=== PATIENT | female | born 1950 | race Caucasian/White ===

== ENCOUNTER 2020-07-06 15:05 | Emergency (ER) | payer MEDICARE, SELFPAY ==
--- NOTE | 2020-07-06 15:13 | ED.CHESTPAIN ---
HPI - Chest Pain General Chief Complaint: Chest Pain Stated Complaint: L SIDED CP TO L ARM Time Seen by Provider: 07/06/20 15:09 Source: patient and EMS Mode of arrival: EMS Limitations: no limitations History of Present Illness MD complaint: chest pain Pertinent past history: coronary artery disease and prior [place] Onset (ago): hour(s) (started at 2pm today) Timing of current episode: constant Prior episodes: No Onset: during rest Pain location: left chest Pain radiation: left arm Severity: moderate Quality: heaviness Relieving factors: nitroglycerin (3 doses) Exacerbating factors: nothing Associated symptoms: nausea, diaphoresis and dyspnea Treatment prior to arrival: aspirin and nitroglycerin Related Data Allergies Allergy/AdvReac Type Severity Reaction Status Date / Time fluticasone Allergy Unknown UNKNOWN Unverified 06/04/20 14:38 [From ADVAIR DISKUS] salmeterol Allergy Unknown UNKNOWN Unverified 06/04/20 14:38 [From ADVAIR DISKUS] sulfacetamide Allergy Unknown Verified 01/17/20 00:00 Sulfa (Sulfonamide AdvReac Unknown VOMITING Unverified 06/04/20 14:38 Antibiotics) [SULFA(SULFONAMIDE ANTIBIOTICS)] Review of Systems Review of Systems: Constitutional : No Weight loss, No Fever, No Chills ENT/Mouth : No sore throat, No Rhinorrhea Eyes: No Eye Pain, No Swelling Cardiovascular : pos Chest Pain, pos SOB, no Dyspnea on Exertion, No Orthopnea, No Edema, No Palpitations Respiratory : No Cough, No Sputum Gastrointestinal : pos Nausea, No Vomiting, No Diarrhea, No abdominal Pain, No Hematochezia, No Melena Genitourinary : No Dysuria, No Urinary Frequency Musculoskeletal : No joint pain, No Myalgias, No Joint Swelling Skin : No Skin Lesions, No rash Neuro : No Weakness, No Numbness, No Dizziness, No Headache Psych : No Anxiety/Panic, No Depression All other systems reviewed and are negative [facility] Past Medical History Medical History (Updated 07/06/20 @ 15:35 by Geraldine Stein DO) Afib Anxiety Aortic stenosis Asthma Depression Myocardial infarction Pacemaker Surgical History (Updated 07/06/20 @ 15:21 by Geraldine Stein DO) History of hip replacement Social History Social History (Updated 07/06/20 @ 15:21 by Geraldine Stein DO) Alcohol intake: never Smoking Status: Current every day smoker Use of substances other than those prescribed or required for medical reasons: No Advance Directives: No Advance Directives Information Provided: Yes Physical Exam Vital Signs: Vital Signs: Vital Signs Temp Pulse Resp BP Pulse Ox 07/06/20 15:15 98.4 F 76 20 102/69 96 Body Mass Index 36.1 Appearance: Alert. Oriented X3. No acute distress. Eyes: Pupils equal, round and reactive to light. ENT: Pharynx normal. Neck: Normal inspection. Neck supple. CVS: Normal heart rate and rhythm. Pulses normal. Respiratory: No respiratory distress. Breath sounds normal. Abdomen: Soft and nontender. Skin: Skin warm and dry. Normal skin color. Normal skin turgor. Extremities: No lower extremity edema. No calf ttp Neuro: Oriented X 3. No motor deficit. No sensory deficit. Course Course Course Narrative: signed out pending troponin - Dr. Katz MDM - Chest Pain MDM Narrative Medical decision making narrative: 69 yo female on chronic anticoagulation here with CP already given 3 nitro and 324mg ASA, still mild pain - IV morphine ordered, labs, CXR, EKG, delta troponin x 2, dispo per results and findings, no missed doses of AC therapy doubt PE at this time ECG Data ECG #1: Attestation: I personally reviewed and interpreted this ECG as follows: ECG interpretation date: 07/06/20 ECG interpretation time: 15:33 Interpretation: Rate: 70 Rhythm: ventricular paced continuous [place]: left wide QRS complex. ST T wave : no SANTIAGO, nonspecific qTC:prolonged prior studies: no acute ischemia The study has been interpreted contemporaneously by me. . Discharge Plan Discharge Clinical Impression: Chest pain Qualifiers: Chest pain type: unspecified Qualified Code(s): R07.9 - Chest pain, unspecified
[2020-07-06 15:15] VITALS: BP 102/69; BP 133/75; PULSE 118; PULSE 76; RESP 20; TEMP 36.9; O2SAT 96; BMI 36.1
--- NOTE | 2020-07-06 15:16 | ECG_ITS ---
Test Reason : CHEST PAIN Blood Pressure : / mmHG Vent. Rate : 080 BPM Atrial Rate : 079 BPM P-R Int : 000 ms QRS Dur : 162 ms QT Int : 428 ms P-R-T Axes : 000 144 -78 degrees QTc Int : 493 ms Poor data quality, interpretation may be adversely affected Ventricular-paced rhythm Abnormal ECG When compared with ECG of 28-MAR-2019 15:45, Electronic ventricular pacemaker has replaced Sinus rhythm Referred By: Celeste Katz Electronically Signed By:SLOANE PRITCHARD MD
--- NOTE | 2020-07-06 15:18 | XR_ITS ---
EXAMINATION: XR CHEST CLINICAL INFORMATION: Pain COMPARISON: Chest x-ray March 28, 2019 TECHNIQUE: Frontal view of the chest was obtained. FINDINGS: Cardiac silhouette is not enlarged. Stable orientation of dual lead pacemaker. There is congestion of a large hiatal hernia. The lungs are well aerated. No gross lobar consolidation. No pleural effusion or pneumothorax. Surgical changes of both shoulders. Old healed left posterior rib fracture. IMPRESSION: 1. No acute pulmonary pathology. 2. Suspected large hiatal hernia. Further evaluation can be obtained with cross-sectional imaging.
[2020-07-06 15:49] LABS: MANUAL DIFF FLAG NO
[2020-07-06 15:50] LABS: Basophils Absolute Auto 0.1 X10*3/uL (0.0-0.2); Basophils Percent Auto 0.5 % (0-2); Eosinophils Absolute Auto 0.1 X10*3/uL (0.0-0.4); Eosinophils Percent Auto 0.7 % (0-4); Hematocrit 40.3 % (37-47); Hemoglobin 13.3 g/dl (12.0-16.0); Imm Gran Abs Auto 0.05 X10*3/uL (0.00-0.03); Imm Gran Pct Auto 0.4 % (0.0-0.4); Lymphocytes Absolute Auto 1.9 X10*3/uL (1.2-4.9); Lymphocytes Percent Auto 14.9 % (20-40); Mean Corpuscular Hemoglobin 28.5 pg (27.0-33.0); Mean Corpuscular Volume 86.5 fL (80-98); Monocytes Absolute Auto 0.9 X10*3/uL (0.1-1.2); Monocytes Percent Auto 6.6 % (2-11); Neutrophils Percent Auto 76.9 % (45-73); Platelet Count 288 X10*3/uL (160-400); Red Blood Count 4.66 X10*6/uL (4.20-5.50); Red Cell Distribution Width 12.3 % (11.0-16.0); White Blood Count 12.9 X10*3/uL (4.8-10.8)
[2020-07-06 15:58] LABS: INTERNATIONAL NORM RATIO 1.4 (0.9-1.1); Prothrombin Time 16.4 SEC (10.8-13.0)
[2020-07-06 16:01] LABS: Partial Thromboplastin Time 48.4 SEC (24.1-38.0)
[2020-07-06 16:16] LABS: B Type Natriuretic Peptide 69 pg/mL (<100); Troponin-I High Sensitivity < 3.5 ng/L (<3.5-17.0)
[2020-07-06 16:28] LABS: Alanine Aminotransferase 14 U/L (0-31); Albumin Level 3.5 g/dL (3.5-5.0); Alkaline Phosphatase 113 U/L (39-117); Anion Gap 12 (12-20); Aspartate Amino Transferase 14 U/L (5-31); Bilirubin Direct 0.2 mg/dL (0.0-0.5); Bilirubin Total 0.3 mg/dL (0.0-1.0); Blood Urea Nitrogen 20 mg/dL (9-16); Calcium 8.3 mg/dL (8.4-10.2); Carbon Dioxide 25 mmol/L (22-29); Chloride 107 mmol/L (96-108); Estimated Glomerular Filt Rate > 60; Glucose Random 114 mg/dL (60-115); Lipase 8 U/L (8-78); Magnesium 1.8 mg/dL (1.6-2.6); Potassium 3.7 mmol/l (3.3-5.1); Sodium 140 mmol/L (135-145); Total Protein 6.6 g/dL (6.5-8.0)
[2020-07-06] MEDS: ondansetron HCL 4 MG/2 ML VIAL IVPUSH (16:29)
[2020-07-06] MEDS: Morphine Sulfate 4 MG/ML CARTRIDGE IVPUSH (16:29)
[2020-07-06 16:32] VITALS: BP 111/69; PULSE 70; RESP 18; TEMP 36.9; O2SAT 97
--- NOTE | 2020-07-06 16:34 | PC.NURSE ---
pt resting in the stretcher alert and oriented, skin pwd, respirations even and unlabored. pt reports left sided chest pain that radiates to her left arm, feels like pressure on the chest, pain at 8/10. ns on the monitor, vs stable
--- NOTE | 2020-07-06 16:53 | PC.NURSE ---
NENO [phone] CALL FOR RIDE WHEN READY FOR DISCHARGE
--- NOTE | 2020-07-06 17:33 | PC.NURSE ---
PT RESTING IN THE STRETCHER WATCHING TV, NS ON THE MONITOR, RESPIRATIONS EVEN AND UNLABORED, PT REPORTS THAT CHEST PRESSURE HAS IMPROVED AFTER THE MORPHINE PAIN AT 5/10.
[2020-07-06 18:13] VITALS: BP 99/60; PULSE 70; RESP 18; O2SAT 98
--- NOTE | 2020-07-06 18:19 | PC.NURSE ---
Addendum entered by Melony Moise 07/06/20 18:25: PT DID REPORT FEELING A LITTLE DIZZY WITH AMBULATION BACK TO BED Original Note: PT AMBULATED WITH SLOW BUT STEADY GAIT TO THE BATHROOM, PT AWAITING REPEAT TROP AT 1830
[2020-07-06 18:25] VITALS: BP 109/67
--- NOTE | 2020-07-06 18:58 | PC.NURSE ---
pt report taken from gilson mccurdy. pt repeat troponin being done at this time. pt states chest pain is coming in waves. pt nsr on monitor 70 bpm. primary troponin was wnl.
--- NOTE | 2020-07-06 19:12 | PC.NURSE ---
pt complaining of worse chest pain, md aware. pts daughter called this rn swearing at me stating i need to get my fucking shit together . although this rn got on shift approx 13 minutes ago. charge nurse aware
--- NOTE | 2020-07-06 19:30 | ECG_ITS ---
Test Reason : CHEST PAIN Blood Pressure : / mmHG Vent. Rate : 072 BPM Atrial Rate : 110 BPM P-R Int : 000 ms QRS Dur : 138 ms QT Int : 444 ms P-R-T Axes : 000 -69 -81 degrees QTc Int : 486 ms Poor data quality, interpretation may be adversely affected Ventricular-paced rhythm underlying aflutter T-wave inversion in Inferior leads Abnormal ECG When compared with ECG of 06-JUL-2020 15:16, Vent. rate has decreased BY 8 BPM T wave inversion now evident in Inferior leads aflutter waves in V1 are new Referred By: Celeste Katz Electronically Signed By:SLOANE PRITCHARD MD
[2020-07-06 19:43] LABS: Troponin-I High Sensitivity < 3.5 ng/L (<3.5-17.0)
--- NOTE | 2020-07-06 19:57 | PC.NURSE ---
repeat troponin negative. plan for d.c iv out, vitals wnl
--- NOTE | 2020-07-06 20:29 | ED_ITS ---
HPI - Chest Pain General Chief Complaint: Chest Pain Stated Complaint: L SIDED CP TO L ARM Time Seen by Provider: 07/06/20 15:09 Source: patient and EMS Mode of arrival: EMS Limitations: no limitations History of Present Illness Pain location: left chest Quality: heaviness Relieving factors: nitroglycerin (3 doses) Exacerbating factors: nothing Associated symptoms: nausea, diaphoresis and dyspnea Related Data Allergies Allergy/AdvReac Type Severity Reaction Status Date / Time fluticasone Allergy Unknown UNKNOWN Unverified 06/04/20 14:38 [From ADVAIR DISKUS] salmeterol Allergy Unknown UNKNOWN Unverified 06/04/20 14:38 [From ADVAIR DISKUS] sulfacetamide Allergy Unknown Verified 01/17/20 00:00 Sulfa (Sulfonamide AdvReac Unknown VOMITING Unverified 06/04/20 14:38 Antibiotics) [SULFA(SULFONAMIDE ANTIBIOTICS)] [facility] Past Medical History Medical History (Updated 07/06/20 @ 15:35 by Geraldine Stein DO) Afib Anxiety Aortic stenosis Asthma Depression Myocardial infarction Pacemaker Surgical History (Updated 07/06/20 @ 15:21 by Geraldine Stein DO) History of hip replacement Social History Social History (Updated 07/06/20 @ 15:21 by Geraldine Stein DO) Alcohol intake: never Smoking Status: Current every day smoker Use of substances other than those prescribed or required for medical reasons: No Advance Directives: No Advance Directives Information Provided: Yes Physical Exam Vital Signs: Vital Signs: Vital Signs Temp Pulse Resp BP Pulse Ox 07/06/20 18:25 109/67 07/06/20 18:13 70 18 99/60 98 07/06/20 16:32 98.5 F 70 18 111/69 97 07/06/20 15:15 98.4 F 76 20 102/69 96 Body Mass Index 36.1 Course Course Course Narrative: patient is currently asymptomatic, no longer having chest pain. MDM - Chest Pain MDM Narrative Medical decision making narrative: I received sign-out from Dr. Stein. Patient's 2nd set of troponin and EKG within normal limits. Patient ready to be discharged home. Patient is asymptomatic. I discussed the labs and EKG with the patient. I discussed with the patient that if he continues having chest pain, she may need a stress test EKG 2.: Heart rate 72, ventricular paste, poor quality EKG Lab Data Result diagrams: 07/06/20 15:44 07/06/20 15:44 Labs: Lab Results 07/06/20 07/06/20 07/06/20 Range/Units 15:44 15:44 15:44 WBC 12.9 H (4.8-10.8) X10*3/uL RBC 4.66 (4.20-5.50) X10*6/uL Hgb 13.3 (12.0-16.0) g/dl Hct 40.3 (37-47) % MCV 86.5 (80-98) fL MCH 28.5 (27.0-33.0) pg MCHC 33.0 (31.0-35.0) g/dl RDW 12.3 (11.0-16.0) % Plt Count 288 (160-400) X10*3/uL MPV 9.0 L (9.4-12.3) fL Immature Gran % (Auto) 0.4 (0.0-0.4) % Neut % (Auto) 76.9 H (45-73) % Lymph % (Auto) 14.9 L (20-40) % [place] % (Auto) 6.6 (2-11) % Eos % (Auto) 0.7 (0-4) % Baso % (Auto) 0.5 (0-2) % Lymph # (Auto) 1.9 (1.2-4.9) X10*3/uL [place] # (Auto) 0.9 (0.1-1.2) X10*3/uL Eos # (Auto) 0.1 (0.0-0.4) X10*3/uL Baso # (Auto) 0.1 (0.0-0.2) X10*3/uL Abs Immat Gran (auto) 0.05 H (0.00-0.03) X10*3/uL Absolute Neuts (auto) 10.0 H (2.0-8.3) X10*3/uL Absolute Nucleated RBC 0.000 (0.0-0.012) X10*3/uL Nucleated RBC % (auto) 0.0 (0.0-0.2) /100WBC PT 16.4 H (10.8-13.0) SEC INR 1.4 H (0.9-1.1) APTT 48.4 H (24.1-38.0) SEC Sodium 140 (135-145) mmol/L Potassium 3.7 (3.3-5.1) mmol/l Chloride 107 (96-108) mmol/L Carbon Dioxide 25 (22-29) mmol/L Anion Gap 12 (12-20) BUN 20 H (9-16) mg/dL Creatinine 0.88 (0.5-1.4) mg/dL Estim Creat Clear Calc 79.0 Estimated GFR > 60 Random Glucose 114 (60-115) mg/dL Calcium 8.3 L (8.4-10.2) mg/dL Magnesium 1.8 (1.6-2.6) mg/dL Total Bilirubin 0.3 (0.0-1.0) mg/dL Direct Bilirubin 0.2 (0.0-0.5) mg/dL AST 14 (5-31) U/L ALT 14 (0-31) U/L Alkaline Phosphatase 113 (39-117) U/L Troponin I High Sens (<3.5-17.0) ng/L B-Natriuretic Peptide (<100) pg/mL Total Protein 6.6 (6.5-8.0) g/dL Albumin 3.5 (3.5-5.0) g/dL Lipase 8 (8-78) U/L 07/06/20 07/06/20 Range/Units 15:44 19:10 WBC (4.8-10.8) X10*3/uL RBC (4.20-5.50) X10*6/uL Hgb (12.0-16.0) g/dl Hct (37-47) % MCV (80-98) fL MCH (27.0-33.0) pg MCHC (31.0-35.0) g/dl RDW (11.0-16.0) % Plt Count (160-400) X10*3/uL MPV (9.4-12.3) fL Immature Gran % (Auto) (0.0-0.4) % Neut % (Auto) (45-73) % Lymph % (Auto) (20-40) % [place] % (Auto) (2-11) % Eos % (Auto) (0-4) % Baso % (Auto) (0-2) % Lymph # (Auto) (1.2-4.9) X10*3/uL [place] # (Auto) (0.1-1.2) X10*3/uL Eos # (Auto) (0.0-0.4) X10*3/uL Baso # (Auto) (0.0-0.2) X10*3/uL Abs Immat Gran (auto) (0.00-0.03) X10*3/uL Absolute Neuts (auto) (2.0-8.3) X10*3/uL Absolute Nucleated RBC (0.0-0.012) X10*3/uL Nucleated RBC % (auto) (0.0-0.2) /100WBC PT (10.8-13.0) SEC INR (0.9-1.1) APTT (24.1-38.0) SEC Sodium (135-145) mmol/L Potassium (3.3-5.1) mmol/l Chloride (96-108) mmol/L Carbon Dioxide (22-29) mmol/L Anion Gap (12-20) BUN (9-16) mg/dL Creatinine (0.5-1.4) mg/dL Estim Creat Clear Calc Estimated GFR Random Glucose (60-115) mg/dL Calcium (8.4-10.2) mg/dL Magnesium (1.6-2.6) mg/dL Total Bilirubin (0.0-1.0) mg/dL Direct Bilirubin (0.0-0.5) mg/dL AST (5-31) U/L ALT (0-31) U/L Alkaline Phosphatase (39-117) U/L Troponin I High Sens < 3.5 < 3.5 (<3.5-17.0) ng/L B-Natriuretic Peptide 69 (<100) pg/mL Total Protein (6.5-8.0) g/dL Albumin (3.5-5.0) g/dL Lipase (8-78) U/L Discharge Plan Discharge Clinical Impression: Chest pain Qualifiers: Chest pain type: unspecified Qualified Code(s): R07.9 - Chest pain, unspecified Patient Disposition: Home, Self-Care Instructions: Chest Pain (ED) Additional Instructions: Please follow-up with your primary care physician tomorrow. If you have any worsening or new symptoms, please return to the emergency room or call 911 Discharge Date/Time: 07/06/20 20:34
== END 2020-07-06 20:34 | disposition home or self-care (01) ==
PROVIDERS: Emergency Medicine; Physician Assistant; Emergency Provider Emergency Medicine; PCP Internal Medicine
DX: R07.9 Chest pain, unspecified (principal); M79.602 Pain in left arm; F17.200 Nicotine dependence, unspecified, uncomplicated; Z71.6 Tobacco abuse counseling
CPT/HCPCS: 36415; 71045; 80048; 80076; 83690; 83735; 83880; 84484; 85025; 85610; 85730; 93005; 96374; 96375; 99285; J2270; J2405

== ENCOUNTER → 2020-07-21 10:10 | Outpatient (BNVA) | payer MEDICARE, SELFPAY | PROVIDERS: PCP Internal Medicine; Referring Provider Internal Medicine; Visit Provider Student in an Organized Health Care Education/Training Program | DX: M81.0 Age-related osteoporosis without current pathological fracture (principal); F17.200 Nicotine dependence, unspecified, uncomplicated; Z79.899 Other long term (current) drug therapy | CPT/HCPCS: 99212 ==

== ENCOUNTER 2020-08-28 05:50 | Inpatient (IN) | payer MEDICARE, SELFPAY ==
[2020-08-28] VITALS (8 sets, daily range): BP systolic 94–126; BP diastolic 45–70; PULSE 63–86; RESP 16–71; TEMP 36.1–38.8; O2SAT 88–100; BMI 29.3
--- NOTE | 2020-08-28 | CT_ITS ---
EXAMINATION: CT ANGIOGRAM OF THE CHEST WITH AND WITHOUT CONTRAST (CT PULMONARY ANGIOGRAM FOR PE) CLINICAL INFORMATION: leukocytosis COMPARISON: 05/28/2018 TECHNIQUE: Prior to contrast administration, noncontrast localization images were obtained. Subsequently, multidetector volumetric imaging was performed from the thoracic inlet to below the diaphragms following the administration of 65 mL Omnipaque 350 intravenous contrast. No contrast reaction reported Sagittal, coronal, and MIP oblique sagittal reformatted images were obtained on the CT workstation, uploaded to PACS, and reviewed. This CT examination was performed using dose optimization techniques as appropriate, variously including the following: *Automated exposure control *Adjustment of mA and/or kV according to patient size (this includes techniques or standardized protocols for targeted exams where dose is matched to indication/reason for exam; i.e. extremities or head) *Use of iterative reconstruction technique Total exam dose-length product 391 mGy-cm FINDINGS: QUALITY OF STUDY/CONTRAST BOLUS: Assessment of the lobar and segmental pulmonary arteries is limited by motion artifact, more pronounced in the lower lobes. PULMONARY ARTERIES: No central or lobar pulmonary emboli are identified. As noted above, there is limited sensitivity and specificity for assessment of more distal emboli in the distal lobar and segmental pulmonary arteries. Pulmonary arteries are normal in caliber. THORACIC AORTA: Vascular is normal in caliber. Mild calcific atherosclerosis in the aortic arch. No evidence of dissection or aneurysmal dilatation. LUNG: Assessment of the lung parenchyma is slightly limited by respiratory motion. There is a 4 mm pulmonary nodule at the right lung apex on image 89/467 of series 7 which is unchanged as compared to 05/28/2018. Interstitial opacities suspected on the radiographs are less apparent by CT. No discrete areas of airspace consolidation are identified. No appreciable groundglass consolidation, though small foci may be obscured by the respiratory motion artifact. Mild dependent atelectasis in the lower lobes. PLEURA: No pleural effusion or pneumothorax. MEDIASTINUM: There is a moderate-sized mixed type hiatal hernia. Pacemaker is noted with leads in the right atrium and right ventricle. Heart is normal in size. No pericardial effusion. Thyroid gland is not well seen. No adenopathy. No evidence of septal bowing or right heart strain. CHEST WALL/AXILLA: No axillary or internal mammary lymphadenopathy. OSSEOUS STRUCTURES: Multilevel degenerative disc disease is present in the lumbar spine. No acute fractures. No axillary adenopathy. UPPER ABDOMEN: No acute findings. A small amount of contrast material refluxes into the hepatic veins. CT/CT angio chest PE protocol IMPRESSION: No evidence of central or proximal lobar pulmonary emboli. Assessment of the distal lobar and segmental pulmonary arteries is limited by significant respiratory motion artifact. No acute pulmonary abnormalities are identified. Suspected interstitial opacities on the radiograph are likely artifactual in nature and are not apparent by CT. No airspace consolidation to suggest pneumonia. Moderate-sized hiatal hernia. A small amount of contrast material refluxed into the hepatic veins as can be seen with elevated right heart pressures. VTE: negative
--- NOTE | 2020-08-28 06:35 | PC.NURSE ---
Patient arrives to ED after fall yesterday. Reports all over my right side pain, and difficulty with ADLs and ambulation since yesterday's fall. Awaiting ED MD evaluation. Pt calm/cooperative, respirations even & unlabored. Will continue to monitor.
--- NOTE | 2020-08-28 06:46 | XR_ITS ---
EXAMINATION: XR HIP, RIGHT CLINICAL INFORMATION: Right hip pain status post fall. COMPARISON: 01/10/2019 bilateral hip radiographs. TECHNIQUE: Two views of the right hip. FINDINGS: Deformity seen in the subcapital right femoral neck. The right intertrochanteric region is intact. Mild right hip degenerative joint changes are seen most pronounced medially, similar on the left side. The bony pelvis and left hip appear intact. XR/XR hip RT min 2V IMPRESSION: 1. Acute, mildly displaced right subcapital femoral neck fracture. 2. Mild bilateral hip degenerative joint changes. This pattern can be seen with rheumatoid arthritis however osteoarthritis cannot be excluded.
--- NOTE | 2020-08-28 06:47 | ECG_ITS ---
Test Reason : FALL Blood Pressure : / mmHG Vent. Rate : 070 BPM Atrial Rate : 069 BPM P-R Int : 000 ms QRS Dur : 122 ms QT Int : 482 ms P-R-T Axes : 000 136 -24 degrees QTc Int : 520 ms Poor data quality, interpretation may be adversely affected Ventricular-paced rhythm Abnormal ECG When compared with ECG of 06-JUL-2020 19:44, No significant changes seen Referred By: Geraldine Stein Electronically Signed By:VIRGEN SHOOK
--- NOTE | 2020-08-28 06:58 | ED_ITS ---
HPI - Extremity Injury (Lower) General Chief Complaint: Extremity Injury, Lower Stated Complaint: HIP PAIN DUE TO FALL Time Seen by Provider: 08/28/20 06:46 Source: patient and EMS Mode of arrival: ambulatory Limitations: no limitations History of Present Illness HPI Narrative: patient states she was standing and lost balance denies CP/SOB/dizziness complaint: hip injury Onset (ago): day(s) (yesterday) Injury: Right: hip Type of Injury: other (fall) Place: home Severity: moderate Relieving factors: nothing Exacerbating factors: movement Context: fall (states she got up and lost her balance fell on the floor hurting R hip, did not strike head) Associated symptoms: unable to bear weight and other (on floor x 1 hour per her waiting for fire department) Other symptoms: none Related Data Home Medications Medication Instructions Recorded Confirmed alendronate 70 mg tablet 70 mg PO QWEEK 07/21/20 apixaban 5 mg tablet 5 mg PO BID 07/21/20 atorvastatin 10 mg tablet 10 mg PO DAILY 07/21/20 cholecalciferol (vitamin D3) 10 10 mcg PO DAILY 07/21/20 mcg (400 unit) capsule clonazepam 1 mg tablet 1 mg PO BEDTIME 07/21/20 diltiazem HCl 120 mg tablet 120 mg PO .twice a day tab 07/21/20 ferrous sulfate 325 mg (65 mg 325 mg PO DAILY 07/21/20 iron) tablet lurasidone 20 mg tablet 20 mg PO DAILY 07/21/20 magnesium 200 mg tablet 200 mg PO DAILY 07/21/20 melatonin 5 mg capsule mg PO PRN 07/21/20 metoprolol succinate 50 mg 50 mg PO DAILY 07/21/20 tablet,extended release 24 hr multivitamin 1 tab PO DAILY 07/21/20 Allergies Allergy/AdvReac Type Severity Reaction Status Date / Time Sulfa (Sulfonamide AdvReac Intermediate VOMITING Verified 07/21/20 10:31 Antibiotics) [SULFA(SULFONAMIDE ANTIBIOTICS)] Review of Systems Review of Systems: Constitutional : No Fever, No Chills ENT/Mouth : No Ear Pain, No Hoarseness, No sore throat Eyes: No Eye Pain, No Swelling, No Redness, No Foreign Body Cardiovascular : No Chest Pain, No SOB Respiratory : No Cough, No Dyspnea Gastrointestinal : No Nausea, No Vomiting, No Diarrhea, No abdominal Pain Genitourinary : No Dysuria, No Hematuria Musculoskeletal : positive joint pain, No Myalgias, No Joint Swelling Skin : No Skin lacerations, No rash Neuro : No Weakness, No Numbness, No Loss of Consciousness, No Dizziness, No Headache Psych : No Anxiety/Panic, No Depression Heme/Lymph: no easy bruising, no Lymphadenopathy Endocrine : No Polyuria, No Polydipsia All other systems reviewed and are negative [facility] Past Medical History Attestation statement: The following information was validated with the patient. Medical History Afib Anxiety Aortic stenosis Asthma Depression Myocardial infarction Osteoporosis Pacemaker Surgical History History of hip replacement Social History Social History Alcohol intake: never Smoking Status: Current every day smoker Advance Directives: No Physical Exam Vital Signs: Vital Signs: Last Vital Signs Temp 98.6 F 08/28/20 06:01 Pulse 74 08/28/20 07:48 Resp 16 08/28/20 06:01 BP 99/58 L 08/28/20 07:48 Pulse Ox 96 08/28/20 06:01 Body Mass Index 29.3 Appearance: Alert. Oriented X3. No acute distress. Flat affect Eyes: Pupils equal, round and reactive to light. ENT: Pharynx normal. Atraumatic Neck: Normal inspection. Neck supple. CVS: Normal heart rate and rhythm. Pulses normal. Respiratory: No respiratory distress. Breath sounds normal. Abdomen: Soft and nontender. Skin: Skin warm and dry. Normal skin color. Normal skin turgor. Extremities: No lower extremity edema. No calf ttp R hip tto distal NV intact Neuro: Oriented X 3. No motor deficit. No sensory deficit. Course Course Course Narrative: Dr. Vick notified - given medical complexities admit to medicine at this time daughter Soheila roblero MDM - Extremity Injury (Lower) MDM Narrative Medical decision making narrative: 69 yo female from home with fall after losing her balance - on eliquis for afib at this time will need labs, CT head given AC therapy, xray or R hip, EKG, IV morphine for pain dispo per results and findings. Lab Data Result diagrams: 08/28/20 07:37 08/28/20 07:36 Labs: Lab Results 08/28/20 08/28/20 08/28/20 Range/Units 07:36 07:36 07:37 WBC 15.1 H (4.8-10.8) X10*3/uL RBC 4.86 (4.20-5.50) X10*6/uL Hgb 14.1 (12.0-16.0) g/dl Hct 42.4 (37-47) % MCV 87.2 (80-98) fL MCH 29.0 (27.0-33.0) pg MCHC 33.3 (31.0-35.0) g/dl RDW 12.7 (11.0-16.0) % Plt Count 243 (160-400) X10*3/uL MPV 8.9 L (9.4-12.3) fL Immature Gran % (Auto) 0.5 H (0.0-0.4) % Neut % (Auto) 82.8 H (45-73) % Lymph % (Auto) 10.2 L (20-40) % [place] % (Auto) 3.9 (2-11) % Eos % (Auto) 2.3 (0-4) % Baso % (Auto) 0.3 (0-2) % Lymph # (Auto) 1.5 (1.2-4.9) X10*3/uL [place] # (Auto) 0.6 (0.1-1.2) X10*3/uL Eos # (Auto) 0.3 (0.0-0.4) X10*3/uL Baso # (Auto) 0.1 (0.0-0.2) X10*3/uL Abs Immat Gran (auto) 0.07 H (0.00-0.03) X10*3/uL Absolute Neuts (auto) 12.5 H (2.0-8.3) X10*3/uL Absolute Nucleated RBC 0.000 (0.0-0.012) X10*3/uL Nucleated RBC % (auto) 0.0 (0.0-0.2) /100WBC PT (10.8-13.0) SEC INR (0.9-1.1) APTT (24.1-38.0) SEC Sodium 136 (135-145) mmol/L Potassium 4.0 (3.3-5.1) mmol/l Chloride 99 (96-108) mmol/L Carbon Dioxide 27 (22-29) mmol/L Anion Gap 14 (12-20) BUN 20 H (9-16) mg/dL Creatinine 0.85 (0.5-1.4) mg/dL Estim Creat Clear Calc 73.7 Estimated GFR > 60 Random Glucose 125 H (60-115) mg/dL Calcium 9.1 D (8.4-10.2) mg/dL Magnesium 2.1 (1.6-2.6) mg/dL Total Creatine Kinase 550 H (26-140) U/L Troponin I High Sens (<3.5-17.0) ng/L 08/28/20 08/28/20 Range/Units 07:37 07:37 WBC (4.8-10.8) X10*3/uL RBC (4.20-5.50) X10*6/uL Hgb (12.0-16.0) g/dl Hct (37-47) % MCV (80-98) fL MCH (27.0-33.0) pg MCHC (31.0-35.0) g/dl RDW (11.0-16.0) % Plt Count (160-400) X10*3/uL MPV (9.4-12.3) fL Immature Gran % (Auto) (0.0-0.4) % Neut % (Auto) (45-73) % Lymph % (Auto) (20-40) % [place] % (Auto) (2-11) % Eos % (Auto) (0-4) % Baso % (Auto) (0-2) % Lymph # (Auto) (1.2-4.9) X10*3/uL [place] # (Auto) (0.1-1.2) X10*3/uL Eos # (Auto) (0.0-0.4) X10*3/uL Baso # (Auto) (0.0-0.2) X10*3/uL Abs Immat Gran (auto) (0.00-0.03) X10*3/uL Absolute Neuts (auto) (2.0-8.3) X10*3/uL Absolute Nucleated RBC (0.0-0.012) X10*3/uL Nucleated RBC % (auto) (0.0-0.2) /100WBC PT 16.2 H (10.8-13.0) SEC INR 1.4 H (0.9-1.1) APTT 41.4 H (24.1-38.0) SEC Sodium (135-145) mmol/L Potassium (3.3-5.1) mmol/l Chloride (96-108) mmol/L Carbon Dioxide (22-29) mmol/L Anion Gap (12-20) BUN (9-16) mg/dL Creatinine (0.5-1.4) mg/dL Estim Creat Clear Calc Estimated GFR Random Glucose (60-115) mg/dL Calcium (8.4-10.2) mg/dL Magnesium (1.6-2.6) mg/dL Total Creatine Kinase (26-140) U/L Troponin I High Sens 5.4 D (<3.5-17.0) ng/L ECG Data Attestation: I personally reviewed and interpreted this ECG as follows: ECG interpretation date: 08/28/20 ECG interpretation time: 07:44 Interpretation: Rate: 70 Rhythm: continuous ventricular paced [place]: normal Normal P waves. Normal DEMARCUS. wide QRS complex. ST T wave : nonspecific, no SANTIAGO qTC: prolonged prior studies: no acute ischemia The study has been interpreted contemporaneously by me. . Discharge Plan Discharge Clinical Impression: Fracture of hip Qualifiers: Encounter type: initial encounter Fracture type: closed Laterality: right Qualified Code(s): S72.001A - Fracture of unspecified part of neck of right femur, initial encounter for closed fracture Patient Disposition: Admitted As Inpatient
--- NOTE | 2020-08-28 06:58 | CT_ITS ---
EXAMINATION: CT HEAD WITHOUT CONTRAST CLINICAL INFORMATION: Status post fall, on Eliquis, rule out intracranial abnormality. COMPARISON: Head CT scan dated 03/28/2019. TECHNIQUE: Contiguous axial imaging was performed from the skull base to vertex without intravenous administration of contrast. Coronal and sagittal reformatted images were obtained. This CT examination was performed using dose optimization techniques as appropriate, variously including the following: *Automated exposure control *Adjustment of mA and/or kV according to patient size (this includes techniques or standardized protocols for targeted exams where dose is matched to indication/reason for exam; i.e. extremities or head) *Use of iterative reconstruction technique DLP: 717 mGy-cm FINDINGS: There is mild widening of the cortical sulci and associated ventriculomegaly. The lateral ventricles are symmetrical. The third and fourth ventricles are in their normal midline position. The basilar and prepontine cisterns are unremarkable. Coarse calcifications are again seen in the anterior falx without significant change. There is no acute intra or extracerebral abnormality. There is no mass effect or midline shift. Sections through the bony calvarium are unremarkable. The orbits are intact. Mild mid nasal septal deviation, apex the left with small apical spur without significant change. The paranasal sinuses are clear. The mastoid air cells are clear. Hypoaeration of the right mastoid air cells is again seen without abnormality. CT/CT head/brain wo con IMPRESSION: Mild age-related cortical atrophy without significant change. No acute intracranial abnormality.
[2020-08-28] MEDS: Morphine Sulfate 2 MG/ML CARTRIDGE IVPUSH (07:41)
[2020-08-28 07:46] LABS: MANUAL DIFF FLAG NO
[2020-08-28 07:47] LABS: Basophils Absolute Auto 0.1 X10*3/uL (0.0-0.2); Basophils Percent Auto 0.3 % (0-2); Eosinophils Absolute Auto 0.3 X10*3/uL (0.0-0.4); Eosinophils Percent Auto 2.3 % (0-4); Hematocrit 42.4 % (37-47); Hemoglobin 14.1 g/dl (12.0-16.0); Imm Gran Abs Auto 0.07 X10*3/uL (0.00-0.03); Imm Gran Pct Auto 0.5 % (0.0-0.4); Lymphocytes Absolute Auto 1.5 X10*3/uL (1.2-4.9); Lymphocytes Percent Auto 10.2 % (20-40); Mean Corpuscular HGB Conc 33.3 g/dl (31.0-35.0); Mean Corpuscular Volume 87.2 fL (80-98); Mean Platelet Volume 8.9 fL (9.4-12.3); Monocytes Absolute Auto 0.6 X10*3/uL (0.1-1.2); Monocytes Percent Auto 3.9 % (2-11); Neutrophils Absolute Auto 12.5 X10*3/uL (2.0-8.3); Neutrophils Percent Auto 82.8 % (45-73); Platelet Count 243 X10*3/uL (160-400); Red Blood Count 4.86 X10*6/uL (4.20-5.50); Red Cell Distribution Width 12.7 % (11.0-16.0); White Blood Count 15.1 X10*3/uL (4.8-10.8)
[2020-08-28 07:51] LABS: INTERNATIONAL NORM RATIO 1.4 (0.9-1.1); Prothrombin Time 16.2 SEC (10.8-13.0)
[2020-08-28 07:53] LABS: Partial Thromboplastin Time 41.4 SEC (24.1-38.0)
[2020-08-28 08:12] LABS: Anion Gap 14 (12-20); Blood Urea Nitrogen 20 mg/dL (9-16); Calcium 9.1 mg/dL (8.4-10.2); Carbon Dioxide 27 mmol/L (22-29); Chloride 99 mmol/L (96-108); Creatinine Clr Calc Pharmacy 73.7; Estimated Glomerular Filt Rate > 60; Glucose Random 125 mg/dL (60-115); Magnesium 2.1 mg/dL (1.6-2.6); Sodium 136 mmol/L (135-145)
[2020-08-28 08:15] LABS: Troponin-I High Sensitivity 5.4 ng/L (<3.5-17.0)
--- NOTE | 2020-08-28 08:38 | XR_ITS ---
EXAMINATION: XR ELBOW, RIGHT CLINICAL INFORMATION: Fall COMPARISON: None TECHNIQUE: AP, lateral, and oblique views of the right elbow. FINDINGS: Bone alignment is normal. No fracture or dislocation is seen. The joint spaces are normal. There is no joint effusion. There is a small osteophyte at the triceps tendon insertion to the olecranon. There is soft tissue swelling over the posterior medial lower elbow. XR/XR elbow RT 2V IMPRESSION: Soft tissue swelling over the posterior medial lower elbow. No fracture seen.
[2020-08-28] MEDS: oxyCODONE HCl Immed Release 5 MG TABLET 10 MG PO (08:45)
--- NOTE | 2020-08-28 10:44 | P.HPHOSP_ITS ---
History of Present Illness Date of Service: 08/28/20 Chief Complaint: fall This is a 69-year-old female with history of atrial fibrillation on Eliquis, asthma, coronary artery disease who presents to the emergency department after a fall. She reports falling 2 days ago. She attempted to sit down on the couch but missed and fell onto the floor. She denies any chest pain, palpitations, dizziness prior to her fall. She was unable to get up off the floor and had to call the fire department for assistance. She did not want to come to the hospital for evaluation at that time. She has been having pain in her right hip difficulty ambulating since her fall. Given her persistent pain she made a decision to come to the emergency department today. Workup revealed a right subcapital femoral neck fracture. The orthopedic surgeon was consulted and he recommended the patient be admitted to the medical service. Patient reports ongoing pain in his right hip has no other complaints. Review of Systems Review of Systems: Yes all other systems are reviewed and are negative Constitutional: Constitutional: Denies chills and Denies fever(s) Cardiovascular: Cardiovascular: Denies chest pain Respiratory: Respiratory: Denies cough Gastrointestinal: Gastrointestinal: Denies abdominal pain [facility] Medical History (Updated 08/28/20 @ 12:40 by REED Samson) Afib Anxiety Aortic stenosis Asthma Depression GERD (gastroesophageal reflux disease) Myocardial infarction Osteoporosis Pacemaker Functional capacity: independent ambulation Pertinent family history: no history of cad Family history: reviewed and not pertinent Surgical History (Updated 08/28/20 @ 10:51 by REED Samson) H/O: hysterectomy Status post right knee replacement Social History (Updated 08/28/20 @ 10:52 by REED Samson) Household Members: Children and Friend(s) Alcohol intake: never Smoking Status: Current every day smoker Cigarettes Per Day: 5 Use of substances other than those prescribed or required for medical reasons: No Advance Directives: No Meds Allergies Allergy/AdvReac Type Severity Reaction Status Date / Time Sulfa (Sulfonamide AdvReac Intermediate VOMITING Verified 07/21/20 10:31 Antibiotics) [SULFA(SULFONAMIDE ANTIBIOTICS)] Home Medications Medication Instructions Recorded Confirmed Type alendronate 70 mg tablet 70 mg PO QWEEK 07/21/20 08/28/20 History apixaban 5 mg tablet 5 mg PO BID 07/21/20 08/28/20 History atorvastatin 10 mg tablet 10 mg PO DAILY 07/21/20 08/28/20 History cholecalciferol (vitamin D3) 10 10 mcg PO DAILY 07/21/20 08/28/20 History mcg (400 unit) capsule ferrous sulfate 325 mg (65 mg 325 mg PO DAILY 07/21/20 08/28/20 History iron) tablet melatonin 5 mg capsule 5 mg PO BEDTIME PRN 07/21/20 08/28/20 History metoprolol succinate 50 mg 100 mg PO DAILY 07/21/20 08/28/20 History tablet,extended release 24 hr multivitamin 1 tab PO DAILY 07/21/20 08/28/20 History calcium carbonate-vitamin D3 1 tab PO BID 08/28/20 08/28/20 History [Oystercal-D] clonazepam 1 mg PO BID PRN 08/28/20 08/28/20 History furosemide 40 mg PO DAILY 08/28/20 08/28/20 History paroxetine HCl 20 mg PO DAILY 08/28/20 08/28/20 History zinc 50 mg PO DAILY 08/28/20 08/28/20 History zolpidem 5 mg PO BEDTIME PRN 08/28/20 08/28/20 History Physical Exam Vital Signs and Narrative: Vital Signs: Last Vital Signs Temp 98.6 F 08/28/20 06:01 Pulse 74 08/28/20 07:48 Resp 16 08/28/20 06:01 BP 99/58 L 08/28/20 07:48 Pulse Ox 96 08/28/20 06:01 Body Mass Index 29.3 Const: Nutritional Appearance: well nourished Orientation/consciousness: patient oriented x3 HENMT: Head: Yes normocephalic and Yes atraumatic Eyes: Sclerae: sclerae normal Chest: Chest palpation & inspection: normal inspection of the chest Resp: Effort & Inspection: normal respiratory effort and no respiratory distress Auscultation: clear to auscultation bilaterally Cardio: Rate: regular rate Rhythm: regular rhythm Heart sounds: Murmur heart sound present GI: Palpation (GI): Soft to palpation and nontender Skin: General skin exam: no rashes or lesions noted Neuro: General: patient oriented x3 Cranial nerves: Yes CN's II-XII intact bilaterally and Yes Bilaterally intact EOM present Extrem: General: Yes normal to inspection Results Labs CBC and Chem 7: 08/28/20 07:37 08/28/20 07:36 Labs: Laboratory Results - last 24 hr 08/28/20 08/28/20 08/28/20 07:36 07:36 07:37 MCV 87.2 MCH 29.0 MCHC 33.3 RDW 12.7 Plt Count 243 MPV 8.9 L Immature Gran % (Auto) 0.5 H Neut % (Auto) 82.8 H Lymph % (Auto) 10.2 L [place] % (Auto) 3.9 Eos % (Auto) 2.3 Baso % (Auto) 0.3 Lymph # (Auto) 1.5 [place] # (Auto) 0.6 Eos # (Auto) 0.3 Baso # (Auto) 0.1 Abs Immat Gran (auto) 0.07 H Absolute Neuts (auto) 12.5 H Absolute Nucleated RBC 0.000 Nucleated RBC % (auto) 0.0 PT INR APTT Anion Gap 14 Estim Creat Clear Calc 73.7 Estimated GFR > 60 Random Glucose 125 H Calcium 9.1 D Magnesium 2.1 Total Creatine Kinase 550 H Troponin I High Sens 08/28/20 08/28/20 07:37 07:37 MCV MCH MCHC RDW Plt Count MPV Immature Gran % (Auto) Neut % (Auto) Lymph % (Auto) [place] % (Auto) Eos % (Auto) Baso % (Auto) Lymph # (Auto) [place] # (Auto) Eos # (Auto) Baso # (Auto) Abs Immat Gran (auto) Absolute Neuts (auto) Absolute Nucleated RBC Nucleated RBC % (auto) PT 16.2 H INR 1.4 H APTT 41.4 H Anion Gap Estim Creat Clear Calc Estimated GFR Random Glucose Calcium Magnesium Total Creatine Kinase Troponin I High Sens 5.4 D Imaging Radiologist's Impressions: Impressions Hip X-Ray 08/28/20 06:46 IMPRESSION: 1. Acute, mildly displaced right subcapital femoral neck fracture. 2. Mild bilateral hip degenerative joint changes. This pattern can be seen with rheumatoid arthritis however osteoarthritis cannot be excluded. Head CT 08/28/20 06:58 IMPRESSION: Mild age-related cortical atrophy without significant change. No acute intracranial abnormality. Elbow X-Ray 08/28/20 08:38 IMPRESSION: Soft tissue swelling over the posterior medial lower elbow. No fracture seen. Assessment and Plan (1) Fracture of hip: Qualifiers: Encounter type: initial encounter Fracture type: closed Laterality: right Qualified Code(s): S72.001A - Fracture of unspecified part of neck of right femur, initial encounter for closed fracture Status: Acute This is a 69-year-old female with history of atrial fibrillation on Eliquis, asthma, acid reflux, anxiety depression who had mechanical fall and sustained right subcapital femoral neck fracture Right subcapital femoral neck fracture Orthopedic consult Hold Eliquis Pain management Elevated CPK. 550 Related to fall/fracture Trend CPK Atrial fibrillation Continue metoprolol Hold Eliquis for planned procedure Leukocytosis Likely reactive secondary to fracture Will check UA, CXR although no symptoms Mood Continue clonazepam, paroxetine dvt ppx - mechanical devices code status - full This case was discussed with Dr. Yepez
--- NOTE | 2020-08-28 11:26 | XR_ITS ---
EXAMINATION: XR CHEST CLINICAL INFORMATION: Fever. COMPARISON: Chest 07/06/2020 TECHNIQUE: Frontal view of the chest was obtained. FINDINGS: The lungs are well-expanded and clear of acute process. The heart size and pulmonary vascularity is normal. There are pacer electrodes right atrium and right ventricle. No gross bony abnormality seen. XR/XR chest 1V IMPRESSION: Unremarkable chest exam.
[2020-08-28] MEDS: Acetaminophen 325 MG TABLET 650 MG PO ×2 (11:34→20:40)
[2020-08-28] MEDS: 0.9 % Sodium Chloride 500 ML IV (11:35)
--- NOTE | 2020-08-28 11:46 | PC.NURSE ---
Patient states she is cold, asking for blankets, took rectal temp when placing on bed seo, ED MD and Hospitalist aware of fever, patient able to lift up self to put on buttocks
[2020-08-28 11:51] LABS: COVID-19 Test Negative (Negative)
--- NOTE | 2020-08-28 11:56 | PC.NURSE ---
[facility] at bedside
--- NOTE | 2020-08-28 12:46 | P.CONOP_ITS ---
History of Present Illness HPI Consult date: 08/28/20 Consult reason: joint pain and fracture Chief complaint: Right femoral neck fracture Narrative: 69 y.o female with a PMH significant for A. Fib on Eliquis last taken yesterday evening, [place], coronary artery disease, and a pacemaker, who presents to the ED today 08/28/20 for rt hip pain and difficulty ambulating s/p fall 08/27/20. Patient states that she was going to a sitting position on the couch when she miss judged how far away the couch was and fell directly onto the floor. She reports that she has been WB on the affected hip at home. She lives at home with her daughter and her daughters friend. She walks with a cane at baseline. Denies any syncope, CP, SOB, palpitations. Review of Systems Review of Systems: Yes all other systems are reviewed and are negative Musculoskeletal: Musculoskeletal: Reports as per [facility] Past Medical History Medical History Afib Anxiety Aortic stenosis Asthma Depression GERD (gastroesophageal reflux disease) Myocardial infarction Osteoporosis Pacemaker Functional capacity: independent ambulation Family History Family history: reviewed and not pertinent Surgical History Surgical History H/O: hysterectomy Status post right knee replacement Social History Social History Household Members: Children and Friend(s) Alcohol intake: never Smoking Status: Current every day smoker Cigarettes Per Day: 5 Use of substances other than those prescribed or required for medical reasons: No Advance Directives: No Meds Allergies Allergy/AdvReac Type Severity Reaction Status Date / Time Sulfa (Sulfonamide AdvReac Intermediate VOMITING Verified 07/21/20 10:31 Antibiotics) [SULFA(SULFONAMIDE ANTIBIOTICS)] Home Medications Medication Instructions Recorded Confirmed Type alendronate 70 mg tablet 70 mg PO QWEEK 07/21/20 08/28/20 History apixaban 5 mg tablet 5 mg PO BID 07/21/20 08/28/20 History atorvastatin 10 mg tablet 10 mg PO DAILY 07/21/20 08/28/20 History cholecalciferol (vitamin D3) 10 10 mcg PO DAILY 07/21/20 08/28/20 History mcg (400 unit) capsule ferrous sulfate 325 mg (65 mg 325 mg PO DAILY 07/21/20 08/28/20 History iron) tablet melatonin 5 mg capsule 5 mg PO BEDTIME PRN 07/21/20 08/28/20 History metoprolol succinate 50 mg 100 mg PO DAILY 07/21/20 08/28/20 History tablet,extended release 24 hr multivitamin 1 tab PO DAILY 07/21/20 08/28/20 History calcium carbonate-vitamin D3 1 tab PO BID 08/28/20 08/28/20 History [Oystercal-D] clonazepam 1 mg PO BID PRN 08/28/20 08/28/20 History furosemide 40 mg PO DAILY 08/28/20 08/28/20 History paroxetine HCl 20 mg PO DAILY 08/28/20 08/28/20 History zinc 50 mg PO DAILY 08/28/20 08/28/20 History zolpidem 5 mg PO BEDTIME PRN 08/28/20 08/28/20 History Physical Exam Vital Signs: Vital Signs: Last Vital Signs Temp 101.8 F H 08/28/20 11:18 Pulse 83 08/28/20 11:18 Resp 18 08/28/20 11:18 BP 126/63 08/28/20 11:18 Pulse Ox 93 08/28/20 11:18 Body Mass Index 29.3 Const: General: cooperative and no acute distress Orientation/consciousness: patient oriented x3 Resp: Effort & Inspection: normal respiratory effort and able to speak in complete sentences Cardio: Peripheral pulses: Peripheral pulses 2+ throughout Neuro: General: patient oriented x3 Extrem: Other: No abrasions, or ecchymosis over the rt hip. Pain with palpation. Unable to perform a straight leg raise and pain with rt leg log roll. NVI. Results Labs Result Diagrams: 08/28/20 07:37 08/28/20 07:36 Labs: Abnormal lab results 08/28/20 08/28/20 08/28/20 Range/Units 07:36 07:37 07:37 WBC 15.1 H (4.8-10.8) X10*3/uL MPV 8.9 L (9.4-12.3) fL Immature Gran % (Auto) 0.5 H (0.0-0.4) % Neut % (Auto) 82.8 H (45-73) % Lymph % (Auto) 10.2 L (20-40) % Abs Immat Gran (auto) 0.07 H (0.00-0.03) X10*3/uL Absolute Neuts (auto) 12.5 H (2.0-8.3) X10*3/uL PT 16.2 H (10.8-13.0) SEC INR 1.4 H (0.9-1.1) APTT 41.4 H (24.1-38.0) SEC BUN 20 H (9-16) mg/dL Random Glucose 125 H (60-115) mg/dL Total Creatine Kinase 550 H (26-140) U/L H & H 08/28/20 Range/Units 07:37 Hgb 14.1 (12.0-16.0) g/dl Hct 42.4 (37-47) % Coagulation 08/28/20 Range/Units 07:37 INR 1.4 H (0.9-1.1) All other labs normal. Assessment and Plan (1) Fracture of hip: Qualifiers: Encounter type: initial encounter Fracture type: closed Laterality: right Qualified Code(s): S72.001A - Fracture of unspecified part of neck of right femur, initial encounter for closed fracture Status: Acute This is a 69 y.o. female who was consulted for a rt hip fracture and admitted to the floor. Discussed the case with Dr. Vick and with the pt. at bedside stating that this will need operative fixation. Explain the extent of the injury and options available which included operative fixation of the rt hip. Discussed the risks, benefits, and alternatives. Risks including but not limited to infection, blood loss/need for transfusion, blood clots, and nerve tissue damage. The patient understands all of this and has elected to proceed with operative fixation of the rt hip. She will be type and screened, and need to be off of Eliquis for 72 hrs before surgery.
--- NOTE | 2020-08-28 13:17 | PC.NURSE ---
PT DIFFICULT STICK. DELAY IN OBTAINING BLOODWORK DUE TO SHUTTING OFF IV FLUIDS TO OBTAIN SPECIMEN. RN AWARE FLUIDS WERE TEMP. D/C. FLUIDS RESTARTED PER RN UPON OBTAINING BLOOD SAMPLE.
[2020-08-28 13:44] LABS: Glucose Urine UA NEG (NEG); Leukocyte Esterase Urine NEG (NEG); Nitrite Urine NEG (NEG); Urine Blood 1+ (NEG); Urine Ketones NEG (NEG); Urine Protein NEG (NEG-TRACE)
[2020-08-28 13:49] LABS: Troponin-I High Sensitivity 3.8 ng/L (<3.5-17.0)
[2020-08-28 13:50] LABS: Appearance Urine CLOUDY; Color Urine YELLOW
[2020-08-28 14:03] LABS: Bacteria Urine 3+ /LPF; RBC Urine 0-2 /HPF (0); Squamous Epithelial Cell Urine TRACE /LPF; WBC Urine 0-2 /HPF (0-4)
[2020-08-28 14:04] LABS: Amorphous Sediment Urine 2+ /LPF
[2020-08-28 14:46] LABS: Lactic Acid 1.2 mmol/L (0.5-2.0)
--- NOTE | 2020-08-28 14:51 | XR_ITS ---
EXAMINATION: XR CHEST CLINICAL INFORMATION: leukocytosis COMPARISON: 08/28/2020 TECHNIQUE: Frontal view of the chest was obtained. FINDINGS: Single lead pacemaker appears unchanged as compared to the prior study. Chronic silhouette is within normal limits. There is a double density overlying the lower mediastinum which is most consistent with a moderate-sized hiatal hernia. A few patchy interstitial and airspace opacities are present within both lungs, more notably within the upper lobes and left lung base. No dense consolidation. No pneumothorax or pleural effusion. No acute osseous findings. Bones are osteopenic. Soft tissue anchors from a rotator cuff repair are evident at the right humeral head. XR/XR chest 1V IMPRESSION: A few patchy foci of interstitial and groundglass opacification which may correspond to early viral pneumonia. No dense consolidation.
--- NOTE | 2020-08-28 16:19 | PM.EVENT ---
Event Note Date of Service: 08/28/20 Event Note: addendum to H+P by REED Emerson I interviewed and examined the patient. I discussed their presentation and management with the mid-level provider. I reviewed the history and physical and agree with the documentation, with the following additions and corrections: 69yo F with AF on apixaban s/p PPM, aortic stenosis, anxiety, depression, asthma, osteoporosis S/p mechanical fall 2d ago No presyncope C/o R hip pain + difficulty walking Found on imaging to have a R subcapital femoral neck fx She briefly desaturated to 88% in the ED but now is 93% on RA. In the ED, when I saw her, she was having chills and fever of 101.8. Denies cough, dysuria, abd pain, or diarrhea. LA 1.2. WBC 15.1. UA neg for nitrite or leukocyte esterase. CXR negative. SARS-CoV2 PCR negative. # femoral neck fx - admit to [facility]o consult # fever, leukocytosis - although pt meets SIRS criteria, there is no localizing source of infection and likely this is due to her hip fracture. no evidence of sepsis at this time. follow BCx. also check PCT. # hypoxia, transient - ?atelectasis. given risk factor of hip fx will check CT angio chest to r/o PE. # elevated CPK - likely very mild rhabdo due to prolonged time on floor, hydrate and recheck in AM # AF - continue metoprolol, hold apixaban # anxiety/depression - continue paroxetine, clonazepam # VTE ppx - BLE SCDs, resume apixaban postop
[2020-08-28] MEDS: iohexoL 350 MG/ML 100 ML INFUS..BTL IV (18:26)
[2020-08-28] MEDS: Lactated Ringers 1,000 ML 100 ML IVCONT (19:48)
[2020-08-28] MEDS: ondansetron HCL 4 MG/2 ML VIAL IVPUSH (20:40)
[2020-08-28] MEDS: Calcium + Vitamin D 250 MG TABLET 500 MG PO (21:05)
[2020-08-29] VITALS (7 sets, daily range): BP systolic 95–145; BP diastolic 49–83; PULSE 68–82; RESP 17–19; TEMP 35.9–37.9; O2SAT 93–97
[2020-08-29] MEDS: Lactated Ringers 1,000 ML 100 ML IVCONT (04:17)
[2020-08-29] MEDS: Ferrous Sulfate 324 MG TABLET.DR PO (07:37)
[2020-08-29] MEDS: Zinc Sulfate 220 MG CAPSULE PO (07:38)
[2020-08-29] MEDS: Cholecalciferol (Vitamin D3) 10 MCG TABLET PO (07:38)
[2020-08-29] MEDS: Metoprolol Succinate ER 100 MG TAB.ER.24H PO (07:38)
[2020-08-29] MEDS: Calcium + Vitamin D 250 MG TABLET 500 MG PO ×2 (07:38→21:52)
[2020-08-29] MEDS: PARoxetine HCL 20 MG TABLET PO (07:38)
[2020-08-29] MEDS: Multivitamin TABLET 1 TAB PO (07:39)
[2020-08-29] MEDS: Acetaminophen 325 MG TABLET 650 MG PO ×2 (07:39→17:05)
[2020-08-29] MEDS: Atorvastatin Calcium 10 MG TABLET PO (07:39)
[2020-08-29] MEDS: 0.9 % Sodium Chloride Flush 3 ML SYRINGE IVFLUSH ×3 (07:40→21:53)
[2020-08-29] MEDS: clonazePAM 1 MG TABLET PO (07:43)
[2020-08-29 09:00] LABS: MANUAL DIFF FLAG NO
[2020-08-29 09:03] LABS: Basophils Absolute Auto 0.1 X10*3/uL (0.0-0.2); Basophils Percent Auto 0.4 % (0-2); Eosinophils Absolute Auto 0.1 X10*3/uL (0.0-0.4); Hematocrit 32.2 % (37-47); Hemoglobin 10.9 g/dl (12.0-16.0); Imm Gran Pct Auto 0.7 % (0.0-0.4); Lymphocytes Absolute Auto 1.1 X10*3/uL (1.2-4.9); Lymphocytes Percent Auto 7.7 % (20-40); Mean Corpuscular HGB Conc 33.9 g/dl (31.0-35.0); Mean Corpuscular Hemoglobin 28.9 pg (27.0-33.0); Mean Corpuscular Volume 85.4 fL (80-98); Mean Platelet Volume 10.2 fL (9.4-12.3); Monocytes Absolute Auto 0.8 X10*3/uL (0.1-1.2); Monocytes Percent Auto 5.6 % (2-11); Neutrophils Percent Auto 84.6 % (45-73); Platelet Count 177 X10*3/uL (160-400); Red Blood Count 3.77 X10*6/uL (4.20-5.50); Red Cell Distribution Width 12.9 % (11.0-16.0); White Blood Count 14.2 X10*3/uL (4.8-10.8)
[2020-08-29 10:21] LABS: Anion Gap 15 (12-20); Blood Urea Nitrogen 21 mg/dL (9-16); Calcium 7.6 mg/dL (8.4-10.2); Carbon Dioxide 20 mmol/L (22-29); Chloride 100 mmol/L (96-108); Creatinine Clr Calc Pharmacy 84.7; Estimated Glomerular Filt Rate > 60; Glucose Random 128 mg/dL (60-115); Potassium 4.2 mmol/l (3.3-5.1); Sodium 131 mmol/L (135-145)
--- NOTE | 2020-08-29 10:34 | P.PNOP_ITS ---
Subjective Subjective Date of Service: 08/29/20 Principal diagnosis: fractured right hip Interval history: patient seen today. Seems a little confused today. still c/o right hip pain Physical Exam Vital Signs: Vital Signs: Last Vital Signs Temp 100.2 F 08/29/20 08:00 Pulse 76 08/29/20 08:00 Resp 17 08/29/20 08:00 BP 138/83 08/29/20 04:00 Pulse Ox 93 08/29/20 08:00 Body Mass Index 29.3 Extrem: Other: HIP: right * INSPECTION: no instability * * PALPATION: some anterior tenderness * * N/V STATUS : intact * * ROM: actively flexing and extending hip * * X-RAYS: garden 1 subcapital fracture right hip Progress Note: A&P Assessment and plan (1) Closed right hip fracture: Status: Acute Assessment and Plan: has a hip fracture that would best be treated with screw fixation. Discusssed this in detail including the risks benefits and alternatives. discussed rehab as well. Will try to discuss this with daughter as well Fall Risk Details Current Medications: Current Medications Generic Name Dose Route Start Last Admin Trade Name Freq PRN Reason Stop Dose Admin Acetaminophen 650 mg 08/28/20 14:51 08/29/20 07:39 Acetaminophen 325 Mg Tablet PO 650 mg Q6H PRN Administration Pain, Mild (Pain Scale 1-3) Hydrocodone Bitart/Acetaminophen 1 tab 08/29/20 09:43 Hydrocodone Bit/Acetam 5/325 Tablet PO Q4H PRN pain,moderate Albuterol Sulfate 4 puff 08/28/20 17:51 Albuterol Sulfate 90 Mcg 8 Gm Inhaler INHALE Q4H PRN shortness of breath or wheeze Atorvastatin Calcium 10 mg 08/29/20 09:00 08/29/20 07:39 Atorvastatin Calcium 10 Mg Tablet PO 10 mg DAILY RON Administration Calcium Carbonate/Cholecalciferol 500 mg 08/28/20 21:00 08/29/20 07:38 Calcium + Vitamin D 250 Mg Tablet PO 500 mg BID RON Administration Clonazepam 1 mg 08/28/20 14:51 08/29/20 07:43 Clonazepam 1 Mg Tablet PO 1 mg BID PRN Administration Anxiety Docusate Sodium 100 mg 08/28/20 14:51 Docusate Sodium 100 Mg Capsule PO DAILY PRN Constipation Ferrous Sulfate 324 mg 08/29/20 09:00 08/29/20 07:37 Ferrous Sulfate 324 Mg Tablet.Dr PO 324 mg DAILY RON Administration Lactated Ringer's 1,000 mls @ 100 mls/hr 08/28/20 17:30 08/29/20 04:17 Lr IVCONT 08/29/20 13:29 100 mls/hr .Q10H RON Administration Melatonin 6 mg 08/28/20 15:07 Melatonin 3 Mg Tablet PO BEDTIME PRN Sleep Metoprolol Succinate 100 mg 08/29/20 09:00 08/29/20 07:38 Metoprolol Succinate Er 100 Mg Tab.Er.24h PO 100 mg DAILY RON Administration Protocol Morphine Sulfate 2 mg 08/29/20 09:43 Morphine Sulfate 2 Mg/Ml Cartridge IVPUSH Q2H PRN pain,severe Multivitamins/Vitamin C 1 tab 08/29/20 09:00 08/29/20 07:39 Multivitamin Tablet PO 1 tab DAILY RON Administration Nicotine 7 mg 08/28/20 16:45 08/29/20 07:40 Nicotine 7 Mg Patch.Td24 TRANSDERMA Not Given DAILY RON Ondansetron HCl 4 mg 08/28/20 14:51 08/28/20 20:40 Ondansetron Hcl 4 Mg/2 Ml Vial IVPUSH 4 mg Q8H PRN Administration Nausea and Vomiting Paroxetine HCl 20 mg 08/29/20 09:00 08/29/20 07:38 Paroxetine Hcl 20 Mg Tablet PO 20 mg DAILY RON Administration Pharmacy Consult 1 each 08/28/20 08:29 Consult Rx Perform Med Rec MISCELLANE ONCE PRN Consult order Sodium Chloride 3 ml 08/28/20 16:00 08/29/20 07:40 0.9 % Sodium Chloride Flush 3 Ml Syringe IVFLUSH 3 ml QSHIFT RON Administration Vitamin D 10 mcg 08/29/20 09:00 08/29/20 07:38 Cholecalciferol (Vitamin D3) 10 Mcg Tablet PO 10 mcg DAILY RON Administration Zinc Sulfate 220 mg 08/29/20 09:00 08/29/20 07:38 Zinc Sulfate 220 Mg Capsule PO 220 mg DAILY RON Administration Zolpidem Tartrate 5 mg 08/28/20 14:51 Zolpidem Tartrate 5 Mg Tablet PO BEDTIME PRN Sleep Time Spent With Patient Time: Total time spent is greater than 50% in coordination of care (as documented) at patient's floor/unit and/or counseling patient: Time with patient: less than 15 minutes
[2020-08-29 10:35] LABS: Procalcitonin 0.09 ng/mL
[2020-08-29] MEDS: Morphine Sulfate 2 MG/ML CARTRIDGE IVPUSH ×3 (11:20→21:52)
--- NOTE | 2020-08-29 11:39 | MHC.CM.PN ---
CM met with pt and her daughter, Soheila who was at bedside. Soheila reports she is the pts nuclear logging engineer child care associate and also cares for the pts sister. Soheila reports this is the second time the pt has fallen in the years she has lived with her and she called the ambulance when it happened but the pt refused to go. She reports she called the ambulance two more times before the pt finally agreed to go, however she reports she had to be very assertive with the pt to get her to agree. Soheila reports at home the pt has a cane but she sometimes gets up with out it and even though she tells her not to get up on her own, the pt does it anyway. Soheila reports she is with the pt nuclear logging engineer and she was recently granted 20 additional hours to hire someone to military professional her a break a couple days a week. Soheila reports being very worried about the pts surgery. She reports the pt has osteoporosis and she is worried her bones will not be able to handle the surgery being recommended. CM will message the orthopedic surgeon and ask them to contact Soheila directly to discuss concerns. Soheila reports she would like the pt to go to [facility] for STR. Referral sent. IMM delivered
--- NOTE | 2020-08-29 12:57 | HO.PM.IMPN ---
Subjective Subjective Date of Service: 08/29/20 Interval History: R hip pain. Low-grade temp elevation to 100.2 today Denies cough or dyspnea Denies dysuria Denies diarrhea or abd pain Physical Exam Vital Signs: Vital Signs: Last Vital Signs Temp 100.2 F 08/29/20 08:00 Pulse 76 08/29/20 08:00 Resp 17 08/29/20 08:00 BP 138/83 08/29/20 04:00 Pulse Ox 93 08/29/20 08:00 Body Mass Index 29.3 Gen: in no acute distress HEENT: sclera anicteric, moist mucus membranes Neck: supple Lungs: clear to auscultation bilaterally Heart: regular rate and rhythm, no murmurs Abd: soft, non-tender, non-distended Ext: R hip tenderness, pain with ROM; distally neurovascularly intact Skin: warm/well-perfused Neuro: alert and oriented x3, no focal findings Psych: appropriate affect Objective Data Current Medications Generic Name Dose Route Start Last Admin Trade Name Freq PRN Reason Stop Dose Admin Acetaminophen 650 mg 08/28/20 14:51 08/29/20 07:39 Acetaminophen 325 Mg Tablet PO 650 mg Q6H PRN Administration Pain, Mild (Pain Scale 1-3) Hydrocodone Bitart/Acetaminophen 1 tab 08/29/20 09:43 Hydrocodone Bit/Acetam 5/325 Tablet PO Q4H PRN pain,moderate Albuterol Sulfate 4 puff 08/28/20 17:51 Albuterol Sulfate 90 Mcg 8 Gm Inhaler INHALE Q4H PRN shortness of breath or wheeze Atorvastatin Calcium 10 mg 08/29/20 09:00 08/29/20 07:39 Atorvastatin Calcium 10 Mg Tablet PO 10 mg DAILY RON Administration Calcium Carbonate/Cholecalciferol 500 mg 08/28/20 21:00 08/29/20 07:38 Calcium + Vitamin D 250 Mg Tablet PO 500 mg BID RON Administration Clonazepam 1 mg 08/28/20 14:51 08/29/20 07:43 Clonazepam 1 Mg Tablet PO 1 mg BID PRN Administration Anxiety Docusate Sodium 100 mg 08/28/20 14:51 Docusate Sodium 100 Mg Capsule PO DAILY PRN Constipation Ferrous Sulfate 324 mg 08/29/20 09:00 08/29/20 07:37 Ferrous Sulfate 324 Mg Tablet. PO 324 mg DAILY RON Administration Lactated Ringer's 1,000 mls @ 100 mls/hr 08/28/20 17:30 08/29/20 04:17 Lr IVCONT 08/29/20 13:29 100 mls/hr .Q10H RON Administration Melatonin 6 mg 08/28/20 15:07 Melatonin 3 Mg Tablet PO BEDTIME PRN Sleep Metoprolol Succinate 100 mg 08/29/20 09:00 08/29/20 07:38 Metoprolol Succinate Er 100 Mg Tab.Er.24h PO 100 mg DAILY RON Administration Protocol Morphine Sulfate 2 mg 08/29/20 09:43 08/29/20 11:20 Morphine Sulfate 2 Mg/Ml Cartridge IVPUSH 2 mg Q2H PRN Administration pain,severe Multivitamins/Vitamin C 1 tab 08/29/20 09:00 08/29/20 07:39 Multivitamin Tablet PO 1 tab DAILY RON Administration Nicotine 7 mg 08/28/20 16:45 08/29/20 07:40 Nicotine 7 Mg Patch.Td24 TRANSDERMA Not Given DAILY RON Ondansetron HCl 4 mg 08/28/20 14:51 08/28/20 20:40 Ondansetron Hcl 4 Mg/2 Ml Vial IVPUSH 4 mg Q8H PRN Administration Nausea and Vomiting Paroxetine HCl 20 mg 08/29/20 09:00 08/29/20 07:38 Paroxetine Hcl 20 Mg Tablet PO 20 mg DAILY RON Administration Pharmacy Consult 1 each 08/28/20 08:29 Consult Rx Perform Med Rec MISCELLANE ONCE PRN Consult order Sodium Chloride 3 ml 08/28/20 16:00 08/29/20 07:40 0.9 % Sodium Chloride Flush 3 Ml Syringe IVFLUSH 3 ml QSHIFT RON Administration Vitamin D 10 mcg 08/29/20 09:00 08/29/20 07:38 Cholecalciferol (Vitamin D3) 10 Mcg Tablet PO 10 mcg DAILY RON Administration Zinc Sulfate 220 mg 08/29/20 09:00 08/29/20 07:38 Zinc Sulfate 220 Mg Capsule PO 220 mg DAILY RON Administration Zolpidem Tartrate 5 mg 08/28/20 14:51 Zolpidem Tartrate 5 Mg Tablet PO BEDTIME PRN Sleep Labs CBC & Chem 7: 08/29/20 08:37 08/29/20 08:37 Labs: Laboratory Results - last 24 hr 08/28/20 08/28/20 08/28/20 07:36 13:08 13:08 WBC RBC Hgb Hct MCV MCH MCHC RDW Plt Count MPV Immature Gran % (Auto) Neut % (Auto) Lymph % (Auto) [place] % (Auto) Eos % (Auto) Baso % (Auto) Lymph # (Auto) [place] # (Auto) Eos # (Auto) Baso # (Auto) Abs Immat Gran (auto) Absolute Neuts (auto) Absolute Nucleated RBC Nucleated RBC % (auto) Sodium Potassium Chloride Carbon Dioxide Anion Gap BUN Creatinine Estim Creat Clear Calc Estimated GFR Random Glucose Fasting Glucose Lactic Acid Cancelled Calcium Total Creatine Kinase Troponin I High Sens 3.8 Procalcitonin 0.10 Urine Color Urine Appearance Urine pH Ur Specific [place] Urine Protein Urine Glucose (UA) Urine Ketones Urine Blood Urine Nitrite Ur Leukocyte Esterase Urine RBC Urine WBC Urine WBC Clumps Ur Squamous Epith Cells Ur Renal Epithelial Cell Urine Crystals [place]to Biurate Crystals Calcium Carbonate Cryst Calcium Phosphate Cryst Calcium Oxalate Crystal Leucine Crystals Cystine Crystals Uric Acid Crystals Triple Phos Crystals Tyrosine Crystals Other Crystals Amorphous Sediment Urine Bacteria Epithelial Casts Fatty Casts Hyaline Casts Granular Casts Waxy Casts RBC Casts WBC Casts Other Casts Urine Mucus Urine Trichomonas Urine Yeast Urine Sperm Ur Oval Fat Bodies 08/28/20 08/28/20 08/28/20 13:28 14:23 20:55 WBC RBC Hgb Hct MCV MCH MCHC RDW Plt Count MPV Immature Gran % (Auto) Neut % (Auto) Lymph % (Auto) [place] % (Auto) Eos % (Auto) Baso % (Auto) Lymph # (Auto) [place] # (Auto) Eos # (Auto) Baso # (Auto) Abs Immat Gran (auto) Absolute Neuts (auto) Absolute Nucleated RBC Nucleated RBC % (auto) Sodium Potassium Chloride Carbon Dioxide Anion Gap BUN Creatinine Estim Creat Clear Calc Estimated GFR Random Glucose Fasting Glucose Lactic Acid 1.2 Calcium Total Creatine Kinase Troponin I High Sens Procalcitonin Urine Color YELLOW Cancelled Urine Appearance CLOUDY Cancelled Urine pH 7.0 Cancelled Ur Specific [place] 1.010 Cancelled Urine Protein NEG Cancelled Urine Glucose (UA) NEG Cancelled Urine Ketones NEG Cancelled Urine Blood 1+ H Cancelled Urine Nitrite NEG Cancelled Ur Leukocyte Esterase NEG Cancelled Urine RBC 0-2 Cancelled Urine WBC 0-2 Cancelled Urine WBC Clumps Cancelled Ur Squamous Epith Cells TRACE Cancelled Ur Renal Epithelial Cell Cancelled Urine Crystals Cancelled [place] Biurate Crystals Cancelled Calcium Carbonate Cryst Cancelled Calcium Phosphate Cryst Cancelled Calcium Oxalate Crystal Cancelled Leucine Crystals Cancelled Cystine Crystals Cancelled Uric Acid Crystals Cancelled Triple Phos Crystals Cancelled Tyrosine Crystals Cancelled Other Crystals Cancelled Amorphous Sediment 2+ Cancelled Urine Bacteria 3+ Cancelled Epithelial Casts Cancelled Fatty Casts Cancelled Hyaline Casts Cancelled Granular Casts Cancelled Waxy Casts Cancelled RBC Casts Cancelled WBC Casts Cancelled Other Casts Cancelled Urine Mucus Cancelled Urine Trichomonas Cancelled Urine Yeast Cancelled Urine Sperm Cancelled Ur Oval Fat Bodies Cancelled 08/29/20 08/29/20 08/29/20 08:36 08:36 08:36 WBC Cancelled RBC Cancelled Hgb Cancelled Hct Cancelled MCV Cancelled MCH Cancelled MCHC Cancelled RDW Cancelled Plt Count Cancelled MPV Cancelled Immature Gran % (Auto) Cancelled Neut % (Auto) Cancelled Lymph % (Auto) Cancelled [place] % (Auto) Cancelled Eos % (Auto) Cancelled Baso % (Auto) Cancelled Lymph # (Auto) Cancelled [place] # (Auto) Cancelled Eos # (Auto) Cancelled Baso # (Auto) Cancelled Abs Immat Gran (auto) Cancelled Absolute Neuts (auto) Cancelled Absolute Nucleated RBC Cancelled Nucleated RBC % (auto) Cancelled Sodium Cancelled Potassium Cancelled Chloride Cancelled Carbon Dioxide Cancelled Anion Gap Cancelled BUN Cancelled Creatinine Cancelled Estim Creat Clear Calc Cancelled Estimated GFR Cancelled Random Glucose Fasting Glucose Cancelled Lactic Acid Calcium Cancelled Total Creatine Kinase Troponin I High Sens Procalcitonin 0.09 Urine Color Urine Appearance Urine pH Ur Specific [place] Urine Protein Urine Glucose (UA) Urine Ketones Urine Blood Urine Nitrite Ur Leukocyte Esterase Urine RBC Urine WBC Urine WBC Clumps Ur Squamous Epith Cells Ur Renal Epithelial Cell Urine Crystals [place] Biurate Crystals Calcium Carbonate Cryst Calcium Phosphate Cryst Calcium Oxalate Crystal Leucine Crystals Cystine Crystals Uric Acid Crystals Triple Phos Crystals Tyrosine Crystals Other Crystals Amorphous Sediment Urine Bacteria Epithelial Casts Fatty Casts Hyaline Casts Granular Casts Waxy Casts RBC Casts WBC Casts Other Casts Urine Mucus Urine Trichomonas Urine Yeast Urine Sperm Ur Oval Fat Bodies 08/29/20 08/29/20 08:37 08:37 WBC 14.2 H RBC 3.77 L D Hgb 10.9 L D Hct 32.2 L D MCV 85.4 MCH 28.9 MCHC 33.9 RDW 12.9 Plt Count 177 D MPV 10.2 Immature Gran % (Auto) 0.7 H Neut % (Auto) 84.6 H Lymph % (Auto) 7.7 L [place] % (Auto) 5.6 Eos % (Auto) 1.0 Baso % (Auto) 0.4 Lymph # (Auto) 1.1 L [place] # (Auto) 0.8 Eos # (Auto) 0.1 Baso # (Auto) 0.1 Abs Immat Gran (auto) 0.10 H Absolute Neuts (auto) 12.0 H Absolute Nucleated RBC 0.000 Nucleated RBC % (auto) 0.0 Sodium 131 L Potassium 4.2 Chloride 100 Carbon Dioxide 20 L Anion Gap 15 BUN 21 H Creatinine 0.74 Estim Creat Clear Calc 84.7 Estimated GFR > 60 Random Glucose 128 H Fasting Glucose Lactic Acid Calcium 7.6 L D Total Creatine Kinase 243 H D Troponin I High Sens Procalcitonin Urine Color Urine Appearance Urine pH Ur Specific [place] Urine Protein Urine Glucose (UA) Urine Ketones Urine Blood Urine Nitrite Ur Leukocyte Esterase Urine RBC Urine WBC Urine WBC Clumps Ur Squamous Epith Cells Ur Renal Epithelial Cell Urine Crystals [place] Biurate Crystals Calcium Carbonate Cryst Calcium Phosphate Cryst Calcium Oxalate Crystal Leucine Crystals Cystine Crystals Uric Acid Crystals Triple Phos Crystals Tyrosine Crystals Other Crystals Amorphous Sediment Urine Bacteria Epithelial Casts Fatty Casts Hyaline Casts Granular Casts Waxy Casts RBC Casts WBC Casts Other Casts Urine Mucus Urine Trichomonas Urine Yeast Urine Sperm Ur Oval Fat Bodies Assessment and Plan (1) Closed right hip fracture: Status: Acute Assessment and Plan: hospital d#2 69yo F with AF on apixaban s/p PPM, aortic stenosis, anxiety, depression, asthma, osteoporosis admitted for R subcapital femoral neck fx after mechanical fall # fever # acute hypoxia - no localizing signs of infection and CT chest negative for PE or PNA; SARS-CoV2 PCR negative. suspect due to atelectasis; will encourage IS # femoral neck fx - Ortho consulted, plan operative screw fixation once off apixaban x72h # elevated CPK - likely very mild rhabdo due to prolonged time on floor, improving after IV hydration # AF - continue metoprolol, hold apixaban # anxiety/depression - continue paroxetine, clonazepam # VTE ppx - BLE SCDs, resume apixaban postop
[2020-08-29] MEDS: Melatonin 3 MG TABLET 6 MG PO (21:53)
[2020-08-30 03:25] VITALS: BP 102/58; PULSE 78; RESP 20; TEMP 36.7; O2SAT 94
[2020-08-30] MEDS: Morphine Sulfate 2 MG/ML CARTRIDGE IVPUSH ×4 (04:50→21:45)
[2020-08-30] MEDS: HYDROcodone Bit/Acetam 5/325 TABLET 1 TAB PO ×2 (06:26→21:26)
[2020-08-30 07:48] LABS: MANUAL DIFF FLAG NO
[2020-08-30 07:50] LABS: Basophils Percent Auto 0.4 % (0-2); Eosinophils Absolute Auto 0.3 X10*3/uL (0.0-0.4); Eosinophils Percent Auto 2.5 % (0-4); Hematocrit 28.8 % (37-47); Hemoglobin 9.6 g/dl (12.0-16.0); Imm Gran Abs Auto 0.06 X10*3/uL (0.00-0.03); Imm Gran Pct Auto 0.6 % (0.0-0.4); Lymphocytes Absolute Auto 1.6 X10*3/uL (1.2-4.9); Mean Corpuscular HGB Conc 33.3 g/dl (31.0-35.0); Mean Corpuscular Hemoglobin 29.1 pg (27.0-33.0); Mean Corpuscular Volume 87.3 fL (80-98); Mean Platelet Volume 10.2 fL (9.4-12.3); Monocytes Absolute Auto 0.8 X10*3/uL (0.1-1.2); Monocytes Percent Auto 7.6 % (2-11); Neutrophils Percent Auto 73.9 % (45-73); Platelet Count 183 X10*3/uL (160-400); White Blood Count 10.9 X10*3/uL (4.8-10.8)
[2020-08-30 07:56] VITALS: BP 115/56; PULSE 69; RESP 18; TEMP 36.4; O2SAT 90
[2020-08-30 08:10] LABS: Anion Gap 12 (12-20); Blood Urea Nitrogen 18 mg/dL (9-16); Carbon Dioxide 24 mmol/L (22-29); Chloride 101 mmol/L (96-108); Potassium 4.1 mmol/l (3.3-5.1); Sodium 133 mmol/L (135-145)
[2020-08-30 08:11] LABS: Calcium 7.8 mg/dL (8.4-10.2); Creatinine Clr Calc Pharmacy 84.7; Estimated Glomerular Filt Rate > 60; Glucose Random 128 mg/dL (60-115)
[2020-08-30 09:10] LABS: Procalcitonin 0.12 ng/mL
[2020-08-30] MEDS: Calcium + Vitamin D 250 MG TABLET 500 MG PO ×2 (09:11→21:26)
[2020-08-30] MEDS: Zinc Sulfate 220 MG CAPSULE PO (09:11)
[2020-08-30] MEDS: Atorvastatin Calcium 10 MG TABLET PO (09:11)
[2020-08-30] MEDS: Metoprolol Succinate ER 100 MG TAB.ER.24H PO (09:11)
[2020-08-30] MEDS: Docusate Sodium 100 MG CAPSULE PO (09:11)
[2020-08-30] MEDS: Multivitamin TABLET 1 TAB PO (09:11)
[2020-08-30] MEDS: clonazePAM 1 MG TABLET PO (09:12)
[2020-08-30] MEDS: Ferrous Sulfate 324 MG TABLET.DR PO (09:12)
[2020-08-30] MEDS: Cholecalciferol (Vitamin D3) 10 MCG TABLET PO (09:12)
[2020-08-30] MEDS: PARoxetine HCL 20 MG TABLET PO (09:12)
[2020-08-30] MEDS: 0.9 % Sodium Chloride Flush 3 ML SYRINGE IVFLUSH ×3 (09:12→23:51)
[2020-08-30] MEDS: Acetaminophen 325 MG TABLET 650 MG PO (09:15)
[2020-08-30 09:22] LABS: B Type Natriuretic Peptide 435 pg/mL (<100)
[2020-08-30] MEDS: Nicotine 7 MG PATCH.TD24 TRANSDERMA (11:08)
[2020-08-30 11:59] VITALS: BP 115/67; PULSE 70; RESP 18; TEMP 35.8; O2SAT 92
--- NOTE | 2020-08-30 12:22 | P.PNIM_ITS ---
Subjective Subjective Date of Service: 08/30/20 Interval History: No further fever. No chest pain. Denies cough or dyspnea. Pain of R hip. Physical Exam Vital Signs: Vital Signs: Last Vital Signs Temp 96.5 F L 08/30/20 11:59 Pulse 70 08/30/20 11:59 Resp 18 08/30/20 11:59 BP 115/67 08/30/20 11:59 Pulse Ox 92 08/30/20 11:59 Body Mass Index 29.3 Gen: in no acute distress HEENT: sclera anicteric, moist mucus membranes Neck: supple Lungs: clear to auscultation bilaterally Heart: regular rate and rhythm, 2/6 <> murmur at base Abd: soft, non-tender, non-distended Ext: R hip tenderness, pain with ROM; distally neurovascularly intact Skin: warm/well-perfused Neuro: alert and oriented x3, no focal findings Psych: appropriate affect Objective Data Current Medications Generic Name Dose Route Start Last Admin Trade Name Freq PRN Reason Stop Dose Admin Acetaminophen 650 mg 08/28/20 14:51 08/30/20 09:15 Acetaminophen 325 Mg Tablet PO 650 mg Q6H PRN Administration Pain, Mild (Pain Scale 1-3) Hydrocodone Bitart/Acetaminophen 1 tab 08/29/20 09:43 08/30/20 06:26 Hydrocodone Bit/Acetam 5/325 Tablet PO 1 tab Q4H PRN Administration pain,moderate Albuterol Sulfate 4 puff 08/28/20 17:51 Albuterol Sulfate 90 Mcg 8 Gm Inhaler INHALE Q4H PRN shortness of breath or wheeze Atorvastatin Calcium 10 mg 08/29/20 09:00 08/30/20 09:11 Atorvastatin Calcium 10 Mg Tablet PO 10 mg DAILY RON Administration Calcium Carbonate/Cholecalciferol 500 mg 08/28/20 21:00 08/30/20 09:11 Calcium + Vitamin D 250 Mg Tablet PO 500 mg BID RON Administration Clonazepam 1 mg 08/28/20 14:51 08/30/20 09:12 Clonazepam 1 Mg Tablet PO 1 mg BID PRN Administration Anxiety Docusate Sodium 100 mg 08/28/20 14:51 08/30/20 09:11 Docusate Sodium 100 Mg Capsule PO 100 mg DAILY PRN Administration Constipation Ferrous Sulfate 324 mg 08/29/20 09:00 08/30/20 09:12 Ferrous Sulfate 324 Mg Tablet. PO 324 mg DAILY RON Administration Melatonin 6 mg 08/28/20 15:07 08/29/20 21:53 Melatonin 3 Mg Tablet PO 6 mg BEDTIME PRN Administration Sleep Metoprolol Succinate 100 mg 08/29/20 09:00 08/30/20 09:11 Metoprolol Succinate Er 100 Mg Tab.Er.24h PO 100 mg DAILY RON Administration Protocol Morphine Sulfate 2 mg 08/29/20 09:43 08/30/20 04:50 Morphine Sulfate 2 Mg/Ml Cartridge IVPUSH 2 mg Q2H PRN Administration pain,severe Multivitamins/Vitamin C 1 tab 08/29/20 09:00 08/30/20 09:11 Multivitamin Tablet PO 1 tab DAILY RON Administration Nicotine 7 mg 08/28/20 16:45 08/30/20 11:08 Nicotine 7 Mg Patch.Td24 TRANSDERMA 7 mg DAILY RON Administration Ondansetron HCl 4 mg 08/28/20 14:51 08/28/20 20:40 Ondansetron Hcl 4 Mg/2 Ml Vial IVPUSH 4 mg Q8H PRN Administration Nausea and Vomiting Paroxetine HCl 20 mg 08/29/20 09:00 08/30/20 09:12 Paroxetine Hcl 20 Mg Tablet PO 20 mg DAILY RON Administration Pharmacy Consult 1 each 08/28/20 08:29 Consult Rx Perform Med Rec MISCELLANE ONCE PRN Consult order Sodium Chloride 3 ml 08/28/20 16:00 08/30/20 09:12 0.9 % Sodium Chloride Flush 3 Ml Syringe IVFLUSH 3 ml QSHIFT RON Administration Vitamin D 10 mcg 08/29/20 09:00 08/30/20 09:12 Cholecalciferol (Vitamin D3) 10 Mcg Tablet PO 10 mcg DAILY RON Administration Zinc Sulfate 220 mg 08/29/20 09:00 08/30/20 09:11 Zinc Sulfate 220 Mg Capsule PO 220 mg DAILY RON Administration Zolpidem Tartrate 5 mg 08/28/20 14:51 Zolpidem Tartrate 5 Mg Tablet PO BEDTIME PRN Sleep Labs CBC & Chem 7: 08/30/20 07:25 08/30/20 07:25 Labs: Laboratory Results - last 24 hr 08/30/20 08/30/20 08/30/20 07:24 07:25 07:25 WBC 10.9 H RBC 3.30 L Hgb 9.6 L Hct 28.8 L MCV 87.3 MCH 29.1 MCHC 33.3 RDW 13.0 Plt Count 183 MPV 10.2 Immature Gran % (Auto) 0.6 H Neut % (Auto) 73.9 H Lymph % (Auto) 15.0 L [place] % (Auto) 7.6 Eos % (Auto) 2.5 Baso % (Auto) 0.4 Lymph # (Auto) 1.6 [place] # (Auto) 0.8 Eos # (Auto) 0.3 Baso # (Auto) 0.0 Abs Immat Gran (auto) 0.06 H Absolute Neuts (auto) 8.0 Absolute Nucleated RBC 0.000 Nucleated RBC % (auto) 0.0 Sodium 133 L Potassium 4.1 Chloride 101 Carbon Dioxide 24 Anion Gap 12 BUN 18 H Creatinine 0.74 Estim Creat Clear Calc 84.7 Estimated GFR > 60 Random Glucose 128 H Calcium 7.8 L B-Natriuretic Peptide Procalcitonin Blood Type A Positive Antibody Screen NEGATIVE 08/30/20 08/30/20 07:25 07:25 WBC RBC Hgb Hct MCV MCH MCHC RDW Plt Count MPV Immature Gran % (Auto) Neut % (Auto) Lymph % (Auto) [place] % (Auto) Eos % (Auto) Baso % (Auto) Lymph # (Auto) [place] # (Auto) Eos # (Auto) Baso # (Auto) Abs Immat Gran (auto) Absolute Neuts (auto) Absolute Nucleated RBC Nucleated RBC % (auto) Sodium Potassium Chloride Carbon Dioxide Anion Gap BUN Creatinine Estim Creat Clear Calc Estimated GFR Random Glucose Calcium B-Natriuretic Peptide 435 H Procalcitonin 0.12 Blood Type Antibody Screen Microbiology Microbiology Results: Microbiology 08/28/20 13:15 Blood - Venous Blood Culture - Preliminary No growth after 24 hours. 08/28/20 13:08 Blood - Venous Blood Culture - Preliminary No growth after 24 hours. Assessment and Plan (1) Closed right hip fracture: Status: Acute Assessment and Plan: hospital d#3 69yo F with AF s/p PPM, mild aortic stenosis, anxiety, depression, asthma, osteoporosis admitted for R subcapital femoral neck fx after mechanical fall # fever # acute hypoxia - no localizing signs of infection; CTA chest negative for PNA + PE; SARS-CoV2 P CR negative. suspect due to atelectasis; will encourage IS # femoral neck fx - Ortho consulted, plan operative screw fixation once off apixaban x72h # acute blood loss anemia - due to fx. maintain active T+S, recheck CBC in am # elevated CPK - likely very mild rhabdo due to prolonged time on floor, improved after IV hydration # aortic stenosis - mild on last TTE 05/28/18, will order updated TTE # AF - continue metoprolol, hold apixaban # anxiety/depression - continue paroxetine, clonazepam # VTE ppx - BLE SCDs, resume apixaban postop # dispo - will need STR after operative fixation
[2020-08-30 15:17] VITALS: BP 95/60; PULSE 71; RESP 16; TEMP 36.1; O2SAT 92
[2020-08-30 19:25] VITALS: BP 102/63; PULSE 70; RESP 19; TEMP 36.8; O2SAT 94
[2020-08-31] VITALS (22 sets, daily range): BP systolic 88–115; BP diastolic 49–68; PULSE 70–700; RESP 14–19; TEMP 36.2–37; O2SAT 91–99
[2020-08-31] MEDS: Morphine Sulfate 2 MG/ML CARTRIDGE IVPUSH ×3 (03:43→23:05)
[2020-08-31 06:11] LABS: MANUAL DIFF FLAG NO
[2020-08-31] MEDS: HYDROcodone Bit/Acetam 5/325 TABLET 1 TAB PO ×2 (06:13→18:04)
[2020-08-31 06:21] LABS: Basophils Percent Auto 0.5 % (0-2); Eosinophils Absolute Auto 0.4 X10*3/uL (0.0-0.4); Eosinophils Percent Auto 4.2 % (0-4); Hematocrit 29.3 % (37-47); Hemoglobin 9.5 g/dl (12.0-16.0); Imm Gran Abs Auto 0.04 X10*3/uL (0.00-0.03); Imm Gran Pct Auto 0.5 % (0.0-0.4); Lymphocytes Absolute Auto 1.5 X10*3/uL (1.2-4.9); Lymphocytes Percent Auto 18.4 % (20-40); Mean Corpuscular HGB Conc 32.4 g/dl (31.0-35.0); Mean Corpuscular Hemoglobin 28.9 pg (27.0-33.0); Mean Corpuscular Volume 89.1 fL (80-98); Mean Platelet Volume 9.8 fL (9.4-12.3); Monocytes Absolute Auto 0.6 X10*3/uL (0.1-1.2); Monocytes Percent Auto 7.1 % (2-11); Neutrophils Absolute Auto 5.7 X10*3/uL (2.0-8.3); Neutrophils Percent Auto 69.3 % (45-73); Platelet Count 184 X10*3/uL (160-400); Red Blood Count 3.29 X10*6/uL (4.20-5.50); Red Cell Distribution Width 12.7 % (11.0-16.0); White Blood Count 8.3 X10*3/uL (4.8-10.8)
[2020-08-31 06:49] LABS: INTERNATIONAL NORM RATIO 1.2 (0.9-1.1); Prothrombin Time 13.7 SEC (10.8-13.0)
--- NOTE | 2020-08-31 09:51 | PC.NURSE ---
Morning meds held per tiger text from REED Ware.
[2020-08-31] MEDS: 0.9 % Sodium Chloride Flush 3 ML SYRINGE IVFLUSH ×2 (09:53→18:03)
--- NOTE | 2020-08-31 10:30 | CA_ITS ---
Transthoracic Echocardiogram Patient (Last, First, Middle): Sari Mccarthy L Gender: Female Date of : 1950 Age: 69 Procedure Date: 08/31/2020 Procedure Type: Transthoracic Echocardiogram Location: 379 Height: 175.26 cm Weight: 90.27 kg BSA: 2.06 m2 Heart Rate: bpm BP: 110 / 62 mmHg [employer]: Juan MD: Zandra Yepez MD Symptoms: preop, aortic stenosis Conclusions: - Normal left ventricular size and systolic function. - Normal right ventricular cavity size and systolic function. - There is a normal trileaflet aortic valve. There is mild calcification of the aortic valve. There is mild thickening of the aortic valve. There is mild aortic valve stenosis. There is mild aortic valve regurgitation. - Mild pulmonary hypertension is present. Findings Procedure Information The patient declines contrast. Left Ventricle Normal left ventricular size and systolic function. There is mildly increased left ventricular wall thickness. The visually estimated ejection fraction is between 60-65%. There is no evidence of regional wall motion abnormalities. Abnormal diastolic function is noted. Spectral Doppler is indicative of a pseudonormal filling pattern. E/E prime ratio is between 8 and 15 consistent with indeterminate filling pressures. Right Ventricle Normal right ventricular cavity size and systolic function. Atria The left atrium is mildly dilated. Aortic Valve There is a normal trileaflet aortic valve. There is mild calcification of the aortic valve. There is mild thickening of the aortic valve. There is mild aortic valve stenosis. There is mild aortic valve regurgitation. Mitral Valve Normal mitral valve structure and function. There is no mitral valve regurgitation. There is no mitral valve stenosis. Pulmonic Valve The pulmonic valve is likely normal. Tricuspid Valve Normal tricuspid valve structure and function. There is trace tricuspid valve regurgitation. Normal right atrial pressure. Mild pulmonary hypertension is present. Great Vessels All visible segments of the aorta are normal in size. The visualized portions of the pulmonary artery and branches are normal. Venous The inferior vena cava is normal in size and collapses greater than 50% with inspiration. Pericardium/Pleural There is no evidence of pericardial effusion. Prior Study Comparison No significant change compared to prior study dated: 05/29/2018. Measurements 2D Linear Measurements IVSd: 1.13 0.6-0.9/0.6-1.0 cm LVIDd: 4.87 3.9-5.3/4.2-5.9 cm LVIDd Index: 2.36 2.4-3.2/2.2-3.1 cm/m2 LVIDs: 3.28 2.0-3.6 cm LVPWd: 1.04 0.7-1.1 cm Ao Root: 2.90 2.1-3.5 cm LA Diam: 4.00 2.7-3.8/3.0-4.0 cm LAIDs Index: 1.94 1.5-2.3 cm/m2 LV Mass: 242.75 67-162/88-224 g LV Mass Index: 117.84 43-95/49-115 g/m2 LVOT Diam: 2.20 3.0+(-)1.3 cm Mitral Valve MV Pk E: 1.02 MV PK A: 0.40 MV Decel Time: 157.00 E/A: 2.60 E'Lateral: 11.90 E'Medial: 6.74 E/E' Med: 15.10 E/E' Lat: 8.60 Aortic Valve AoV Pk Jose Angel: 2.22 AoV Mn Jose Angel: 1.44 AoV VTI: 0.42 AoV Pk Grad: 20.00 Aov Mn Grad: 9.00 SHAVON Cont.VTI: 1.75 LVOT LVOT Pk Jose Angel: 0.89 LVOT Mn Jose Angel: 0.64 LVOT VTI: 0.19 LVOT Pk Grad: 3.00 LVOT Mn Grad: 2.00 LVOT Diam: 2.20 LVOT Area: 3.80 Diastolic Function MV Pk E: 1.02 MV Pk A: 0.40 E/A: 2.60 E'Medial: 6.74 E/E' Med: 15.10 E' Laterial: 11.90 E/E' Lat: 8.60 Tricuspid Valve TR Pk Jose Angel: 3.03 TR Pk Grad: 37.00 RA Press: 8.00 RVSP: 45.00 Great Vessels Aorta Ao Root-2D: 2.90 2.0-3.7 cm Ao Asc: 3.20 2.1-3.4 cm Ao Arch: 3.00 Updated in Other Vendor System with Status of Final Uzair Chau MD electronically signed on 08/31/2020 2:58:17 PM with status of Final
--- NOTE | 2020-08-31 10:43 | HO.PM.IMPN ---
Subjective Subjective Date of Service: 08/31/20 Interval History: Patient seen and examined at bedside. No acute complaints. Awaiting surgery today for right hip neck fracture. Patient also receiving echo for history of this morning. Physical Exam Vital Signs: Vital Signs: Last Vital Signs Temp 97.8 F 08/31/20 08:00 Pulse 78 08/31/20 08:00 Resp 17 08/31/20 08:00 BP 98/62 08/31/20 08:00 Pulse Ox 91 L 08/31/20 08:00 Body Mass Index 29.3 Const: General: cooperative and no acute distress Orientation/consciousness: patient oriented x3 Resp: Effort & Inspection: normal respiratory effort and able to speak in complete sentences Cardio: Rate: regular rate GI: Palpation (GI): Soft to palpation Auscultation: normal bowel sounds Skin: General skin exam: no rashes or lesions noted Neuro: General: patient oriented x3 Cognition (Neuro): normal cognition Objective Data Current Medications Generic Name Dose Route Start Last Admin Trade Name Freq PRN Reason Stop Dose Admin Acetaminophen 650 mg 08/28/20 14:51 08/30/20 09:15 Acetaminophen 325 Mg Tablet PO 650 mg Q6H PRN Administration Pain, Mild (Pain Scale 1-3) Hydrocodone Bitart/Acetaminophen 1 tab 08/29/20 09:43 08/31/20 06:13 Hydrocodone Bit/Acetam 5/325 Tablet PO 1 tab Q4H PRN Administration pain,moderate Albuterol Sulfate 4 puff 08/28/20 17:51 Albuterol Sulfate 90 Mcg 8 Gm Inhaler INHALE Q4H PRN shortness of breath or wheeze Atorvastatin Calcium 10 mg 08/29/20 09:00 08/31/20 09:57 Atorvastatin Calcium 10 Mg Tablet PO Not Given DAILY RON Calcium Carbonate/Cholecalciferol 500 mg 08/28/20 21:00 08/31/20 09:55 Calcium + Vitamin D 250 Mg Tablet PO Not Given BID RON Clonazepam 1 mg 08/28/20 14:51 08/30/20 09:12 Clonazepam 1 Mg Tablet PO 1 mg BID PRN Administration Anxiety Docusate Sodium 100 mg 08/28/20 14:51 08/30/20 09:11 Docusate Sodium 100 Mg Capsule PO 100 mg DAILY PRN Administration Constipation Ferrous Sulfate 324 mg 08/29/20 09:00 08/31/20 09:55 Ferrous Sulfate 324 Mg Tablet.Dr PO Not Given DAILY [facility] Melatonin 6 mg 08/28/20 15:07 08/29/20 21:53 Melatonin 3 Mg Tablet PO 6 mg BEDTIME PRN Administration Sleep Metoprolol Succinate 100 mg 08/29/20 09:00 08/31/20 09:55 Metoprolol Succinate Er 100 Mg Tab.Er.24h PO Not Given DAILY [facility] Protocol Morphine Sulfate 2 mg 08/29/20 09:43 08/31/20 03:43 Morphine Sulfate 2 Mg/Ml Cartridge IVPUSH 2 mg Q2H PRN Administration pain,severe Multivitamins/Vitamin C 1 tab 08/29/20 09:00 08/31/20 09:56 Multivitamin Tablet PO Not Given DAILY [facility] Nicotine 7 mg 08/28/20 16:45 08/31/20 09:56 Nicotine 7 Mg Patch.Td24 TRANSDERMA Not Given DAILY [facility] Ondansetron HCl 4 mg 08/28/20 14:51 08/28/20 20:40 Ondansetron Hcl 4 Mg/2 Ml Vial IVPUSH 4 mg Q8H PRN Administration Nausea and Vomiting Paroxetine HCl 20 mg 08/29/20 09:00 08/31/20 09:56 Paroxetine Hcl 20 Mg Tablet PO Not Given DAILY [facility] Pharmacy Consult 1 each 08/28/20 08:29 Consult Rx Perform Med Rec MISCELLANE ONCE PRN Consult order Sodium Chloride 3 ml 08/28/20 16:00 08/31/20 09:53 0.9 % Sodium Chloride Flush 3 Ml Syringe IVFLUSH 3 ml QSHIFT [facility] Administration Vitamin D 10 mcg 08/29/20 09:00 08/31/20 09:55 Cholecalciferol (Vitamin D3) 10 Mcg Tablet PO Not Given DAILY [facility] Zinc Sulfate 220 mg 08/29/20 09:00 08/31/20 09:56 Zinc Sulfate 220 Mg Capsule PO Not Given DAILY [facility] Zolpidem Tartrate 5 mg 08/28/20 14:51 Zolpidem Tartrate 5 Mg Tablet PO BEDTIME PRN Sleep Labs CBC & Chem 7: 08/31/20 06:00 08/30/20 07:25 Microbiology Microbiology Results: Microbiology 08/28/20 13:15 Blood - Venous Blood Culture - Preliminary No growth after 48 hours. 08/28/20 13:08 Blood - Venous Blood Culture - Preliminary No growth after 48 hours. Assessment and Plan (1) Closed right hip fracture: Status: Acute (2) Hypoxia: Status: Acute (3) Normocytic anemia: Status: Acute Assessment and Plan: hospital d#4 69yo F with AF s/p PPM, mild aortic stenosis, anxiety, depression, asthma, osteoporosis admitted for R subcapital femoral neck fx after mechanical fall # fever - resolved, with no recurrence in the hospital - No localized sign of infection - No source to identify, UA negative on admission, negative for PNA, COVID -ve, no PE # acute hypoxia - Still requiring 2L to maintain O2 of 91-94% - CTA chest negative for PNA + PE; SARS-CoV2 PCR negative. suspect due to atelectasis; will encourage IS # femoral neck fx - Ortho consulted, plan operative screw fixation today - Pt has been off apixaban for 72 hours # acute blood loss anemia - due to fx. , hemoglobin stable this a.m. - maintain active T+S, - follow daily H&H - threshold for transfusion hemoglobin less than 7 # elevated CPK - likely very mild rhabdo due to prolonged time on floor, improved after IV hydration # aortic stenosis - mild on last TTE 05/28/18, - yvette being done today- will follow results # AF - continue metoprolol, hold apixaban in the setting of surgery - resumption of apixaban up to orthopedic team # anxiety/depression - continue paroxetine, clonazepam # VTE ppx - BLE SCDs, resume apixaban postop # dispo - will need STR after operative fixation
--- NOTE | 2020-08-31 13:19 | HO.ANESPROP2 ---
HPI - Anesthesia Eval Consult details Narrative: 69 F p/f perc pinning for femoral fracture. afib, holding apixaban. hx of pacemaker, no recent hx of chest pain or syncope. states she's been good . [facility], [facility] Past Medical History Medical History Afib Anxiety Aortic stenosis Asthma Depression GERD (gastroesophageal reflux disease) Myocardial infarction Osteoporosis Pacemaker Functional capacity: independent ambulation Surgical History Surgical History H/O: hysterectomy Status post right knee replacement Social History Social History Household Members: Family Housing: Apartment Alcohol intake: never Smoking Status: Current every day smoker Tobacco Type: Cigarette Packs Per Day: 0.25 Cigarettes Per Day: 4 Years Smoked: 54 service: No Current occupational status: retired Meds Allergies Allergy/AdvReac Type Severity Reaction Status Date / Time Sulfa (Sulfonamide AdvReac Intermediate VOMITING Verified 08/31/20 13:18 Antibiotics) [SULFA(SULFONAMIDE ANTIBIOTICS)] Home Medications Medication Instructions Recorded Confirmed Type alendronate 70 mg tablet 70 mg PO QWEEK 07/21/20 08/28/20 History apixaban 5 mg tablet 5 mg PO BID 07/21/20 08/28/20 History atorvastatin 10 mg tablet 10 mg PO DAILY 07/21/20 08/28/20 History cholecalciferol (vitamin D3) 10 10 mcg PO DAILY 07/21/20 08/28/20 History mcg (400 unit) capsule ferrous sulfate 325 mg (65 mg 325 mg PO DAILY 07/21/20 08/28/20 History iron) tablet melatonin 5 mg capsule 5 mg PO BEDTIME PRN 07/21/20 08/28/20 History metoprolol succinate 50 mg 100 mg PO DAILY 07/21/20 08/28/20 History tablet,extended release 24 hr multivitamin 1 tab PO DAILY 07/21/20 08/28/20 History calcium carbonate-vitamin D3 1 tab PO BID 08/28/20 08/28/20 History [Oystercal-D] clonazepam 1 mg PO BID PRN 08/28/20 08/28/20 History furosemide 40 mg PO DAILY 08/28/20 08/28/20 History paroxetine HCl 20 mg PO DAILY 08/28/20 08/28/20 History zinc 50 mg PO DAILY 08/28/20 08/28/20 History zolpidem 5 mg PO BEDTIME PRN 08/28/20 08/28/20 History Exam Exam Date and Time: August 31, 2020 1319 Height,Weight and Vital Signs: Height 5 ft 9 in Weight 90.265 kg Last Vital Signs Temp 98.2 F 08/31/20 13:00 Pulse 71 08/31/20 13:00 Resp 16 08/31/20 13:00 BP 97/59 L 08/31/20 13:00 Pulse Ox 99 08/31/20 13:00 Pertinent Lab Results Pertinent Lab Results: Laboratory Tests 08/28/20 08/28/20 08/28/20 07:36 07:36 07:36 WBC RBC Hgb Hct MCV MCH MCHC RDW Plt Count MPV Immature Gran % (Auto) Neut % (Auto) Lymph % (Auto) [place] % (Auto) Eos % (Auto) Baso % (Auto) Lymph # (Auto) [place] # (Auto) Eos # (Auto) Baso # (Auto) Abs Immat Gran (auto) Absolute Neuts (auto) Absolute Nucleated RBC Nucleated RBC % (auto) PT INR APTT Sodium 136 Potassium 4.0 Chloride 99 Carbon Dioxide 27 Anion Gap 14 BUN 20 H Creatinine 0.85 Estim Creat Clear Calc 73.7 Estimated GFR > 60 Random Glucose 125 H Fasting Glucose Lactic Acid Calcium 9.1 D Magnesium 2.1 Total Creatine Kinase 550 H Troponin I High Sens B-Natriuretic Peptide Procalcitonin 0.10 Urine Color Urine Appearance Urine pH Ur Specific [place] Urine Protein Urine Glucose (UA) Urine Ketones Urine Blood Urine Nitrite Ur Leukocyte Esterase Urine RBC Urine WBC Urine WBC Clumps Ur Squamous Epith Cells Ur Renal Epithelial Cell Urine Crystals Edilberto Biurate Crystals Calcium Carbonate Cryst Calcium Phosphate Cryst Calcium Oxalate Crystal Leucine Crystals Cystine Crystals Uric Acid Crystals Triple Phos Crystals Tyrosine Crystals Other Crystals Amorphous Sediment Urine Bacteria Epithelial Casts Fatty Casts Hyaline Casts Granular Casts Waxy Casts RBC Casts WBC Casts Other Casts Urine Mucus Urine Trichomonas Urine Yeast Urine Sperm Ur Oval Fat Bodies COVID-19 (ROBERT) COVID-19 Clin Com Blood Type Antibody Screen 08/28/20 08/28/20 08/28/20 07:37 07:37 07:37 WBC 15.1 H RBC 4.86 Hgb 14.1 Hct 42.4 MCV 87.2 MCH 29.0 MCHC 33.3 RDW 12.7 Plt Count 243 MPV 8.9 L Immature Gran % (Auto) 0.5 H Neut % (Auto) 82.8 H Lymph % (Auto) 10.2 L [place] % (Auto) 3.9 Eos % (Auto) 2.3 Baso % (Auto) 0.3 Lymph # (Auto) 1.5 [place] # (Auto) 0.6 Eos # (Auto) 0.3 Baso # (Auto) 0.1 Abs Immat Gran (auto) 0.07 H Absolute Neuts (auto) 12.5 H Absolute Nucleated RBC 0.000 Nucleated RBC % (auto) 0.0 PT 16.2 H INR 1.4 H APTT 41.4 H Sodium Potassium Chloride Carbon Dioxide Anion Gap BUN Creatinine Estim Creat Clear Calc Estimated GFR Random Glucose Fasting Glucose Lactic Acid Calcium Magnesium Total Creatine Kinase Troponin I High Sens 5.4 D B-Natriuretic Peptide Procalcitonin Urine Color Urine Appearance Urine pH Ur Specific [place] Urine Protein Urine Glucose (UA) Urine Ketones Urine Blood Urine Nitrite Ur Leukocyte Esterase Urine RBC Urine WBC Urine WBC Clumps Ur Squamous Epith Cells Ur Renal Epithelial Cell Urine Crystals Ridgetop Biurate Crystals Calcium Carbonate Cryst Calcium Phosphate Cryst Calcium Oxalate Crystal Leucine Crystals Cystine Crystals Uric Acid Crystals Triple Phos Crystals Tyrosine Crystals Other Crystals Amorphous Sediment Urine Bacteria Epithelial Casts Fatty Casts Hyaline Casts Granular Casts Waxy Casts RBC Casts WBC Casts Other Casts Urine Mucus Urine Trichomonas Urine Yeast Urine Sperm Ur Oval Fat Bodies COVID-19 (ROBERT) COVID-19 Clin Com Blood Type Antibody Screen 08/28/20 08/28/20 08/28/20 11:29 13:08 13:08 WBC RBC Hgb Hct MCV MCH MCHC RDW Plt Count MPV Immature Gran % (Auto) Neut % (Auto) Lymph % (Auto) [place] % (Auto) Eos % (Auto) Baso % (Auto) Lymph # (Auto) [place] # (Auto) Eos # (Auto) Baso # (Auto) Abs Immat Gran (auto) Absolute Neuts (auto) Absolute Nucleated RBC Nucleated RBC % (auto) PT INR APTT Sodium Potassium Chloride Carbon Dioxide Anion Gap BUN Creatinine Estim Creat Clear Calc Estimated GFR Random Glucose Fasting Glucose Lactic Acid Cancelled Calcium Magnesium Total Creatine Kinase Troponin I High Sens 3.8 B-Natriuretic Peptide Procalcitonin Urine Color Urine Appearance Urine pH Ur Specific [place] Urine Protein Urine Glucose (UA) Urine Ketones Urine Blood Urine Nitrite Ur Leukocyte Esterase Urine RBC Urine WBC Urine WBC Clumps Ur Squamous Epith Cells Ur Renal Epithelial Cell Urine Crystals Edilberto Biurate Crystals Calcium Carbonate Cryst Calcium Phosphate Cryst Calcium Oxalate Crystal Leucine Crystals Cystine Crystals Uric Acid Crystals Triple Phos Crystals Tyrosine Crystals Other Crystals Amorphous Sediment Urine Bacteria Epithelial Casts Fatty Casts Hyaline Casts Granular Casts Waxy Casts RBC Casts WBC Casts Other Casts Urine Mucus Urine Trichomonas Urine Yeast Urine Sperm Ur Oval Fat Bodies COVID-19 (ROBERT) Negative COVID-19 Clin Com See Note Blood Type Antibody Screen 08/28/20 08/28/20 08/28/20 13:28 14:23 20:55 WBC RBC Hgb Hct MCV MCH MCHC RDW Plt Count MPV Immature Gran % (Auto) Neut % (Auto) Lymph % (Auto) [place] % (Auto) Eos % (Auto) Baso % (Auto) Lymph # (Auto) [place] # (Auto) Eos # (Auto) Baso # (Auto) Abs Immat Gran (auto) Absolute Neuts (auto) Absolute Nucleated RBC Nucleated RBC % (auto) PT INR APTT Sodium Potassium Chloride Carbon Dioxide Anion Gap BUN Creatinine Estim Creat Clear Calc Estimated GFR Random Glucose Fasting Glucose Lactic Acid 1.2 Calcium Magnesium Total Creatine Kinase Troponin I High Sens B-Natriuretic Peptide Procalcitonin Urine Color YELLOW Cancelled Urine Appearance CLOUDY Cancelled Urine pH 7.0 Cancelled Ur Specific [place] 1.010 Cancelled Urine Protein NEG Cancelled Urine Glucose (UA) NEG Cancelled Urine Ketones NEG Cancelled Urine Blood 1+ H Cancelled Urine Nitrite NEG Cancelled Ur Leukocyte Esterase NEG Cancelled Urine RBC 0-2 Cancelled Urine WBC 0-2 Cancelled Urine WBC Clumps Cancelled Ur Squamous Epith Cells TRACE Cancelled Ur Renal Epithelial Cell Cancelled Urine Crystals Cancelled Ridgetop Biurate Crystals Cancelled Calcium Carbonate Cryst Cancelled Calcium Phosphate Cryst Cancelled Calcium Oxalate Crystal Cancelled Leucine Crystals Cancelled Cystine Crystals Cancelled Uric Acid Crystals Cancelled Triple Phos Crystals Cancelled Tyrosine Crystals Cancelled Other Crystals Cancelled Amorphous Sediment 2+ Cancelled Urine Bacteria 3+ Cancelled Epithelial Casts Cancelled Fatty Casts Cancelled Hyaline Casts Cancelled Granular Casts Cancelled Waxy Casts Cancelled RBC Casts Cancelled WBC Casts Cancelled Other Casts Cancelled Urine Mucus Cancelled Urine Trichomonas Cancelled Urine Yeast Cancelled Urine Sperm Cancelled Ur Oval Fat Bodies Cancelled COVID-19 (ROBERT) COVID-19 [facility] Blood Type Antibody Screen 08/29/20 08/29/20 08/29/20 08:36 08:36 08:36 WBC Cancelled RBC Cancelled Hgb Cancelled Hct Cancelled MCV Cancelled MCH Cancelled MCHC Cancelled RDW Cancelled Plt Count Cancelled MPV Cancelled Immature Gran % (Auto) Cancelled Neut % (Auto) Cancelled Lymph % (Auto) Cancelled [place] % (Auto) Cancelled Eos % (Auto) Cancelled Baso % (Auto) Cancelled Lymph # (Auto) Cancelled [place] # (Auto) Cancelled Eos # (Auto) Cancelled Baso # (Auto) Cancelled Abs Immat Gran (auto) Cancelled Absolute Neuts (auto) Cancelled Absolute Nucleated RBC Cancelled Nucleated RBC % (auto) Cancelled PT INR APTT Sodium Cancelled Potassium Cancelled Chloride Cancelled Carbon Dioxide Cancelled Anion Gap Cancelled BUN Cancelled Creatinine Cancelled Estim Creat Clear Calc Cancelled Estimated GFR Cancelled Random Glucose Fasting Glucose Cancelled Lactic Acid Calcium Cancelled Magnesium Total Creatine Kinase Troponin I High Sens B-Natriuretic Peptide Procalcitonin 0.09 Urine Color Urine Appearance Urine pH Ur Specific [place] Urine Protein Urine Glucose (UA) Urine Ketones Urine Blood Urine Nitrite Ur Leukocyte Esterase Urine RBC Urine WBC Urine WBC Clumps Ur Squamous Epith Cells Ur Renal Epithelial Cell Urine Crystals Ridgetop Biurate Crystals Calcium Carbonate Cryst Calcium Phosphate Cryst Calcium Oxalate Crystal Leucine Crystals Cystine Crystals Uric Acid Crystals Triple Phos Crystals Tyrosine Crystals Other Crystals Amorphous Sediment Urine Bacteria Epithelial Casts Fatty Casts Hyaline Casts Granular Casts Waxy Casts RBC Casts WBC Casts Other Casts Urine Mucus Urine Trichomonas Urine Yeast Urine Sperm Ur Oval Fat Bodies COVID-19 (ROBERT) COVID-19 [facility] Com Blood Type Antibody Screen 08/29/20 08/29/20 08/30/20 08:37 08:37 07:24 WBC 14.2 H RBC 3.77 L D Hgb 10.9 L D Hct 32.2 L D MCV 85.4 MCH 28.9 MCHC 33.9 RDW 12.9 Plt Count 177 D MPV 10.2 Immature Gran % (Auto) 0.7 H Neut % (Auto) 84.6 H Lymph % (Auto) 7.7 L [place] % (Auto) 5.6 Eos % (Auto) 1.0 Baso % (Auto) 0.4 Lymph # (Auto) 1.1 L [place] # (Auto) 0.8 Eos # (Auto) 0.1 Baso # (Auto) 0.1 Abs Immat Gran (auto) 0.10 H Absolute Neuts (auto) 12.0 H Absolute Nucleated RBC 0.000 Nucleated RBC % (auto) 0.0 PT INR APTT Sodium 131 L Potassium 4.2 Chloride 100 Carbon Dioxide 20 L Anion Gap 15 BUN 21 H Creatinine 0.74 Estim Creat Clear Calc 84.7 Estimated GFR > 60 Random Glucose 128 H Fasting Glucose Lactic Acid Calcium 7.6 L D Magnesium Total Creatine Kinase 243 H D Troponin I High Sens B-Natriuretic Peptide Procalcitonin Urine Color Urine Appearance Urine pH Ur Specific [place] Urine Protein Urine Glucose (UA) Urine Ketones Urine Blood Urine Nitrite Ur Leukocyte Esterase Urine RBC Urine WBC Urine WBC Clumps Ur Squamous Epith Cells Ur Renal Epithelial Cell Urine Crystals [place]il[place]to Biurate Crystals Calcium Carbonate Cryst Calcium Phosphate Cryst Calcium Oxalate Crystal Leucine Crystals Cystine Crystals Uric Acid Crystals Triple Phos Crystals Tyrosine Crystals Other Crystals Amorphous Sediment Urine Bacteria Epithelial Casts Fatty Casts Hyaline Casts Granular Casts Waxy Casts RBC Casts WBC Casts Other Casts Urine Mucus Urine Trichomonas Urine Yeast Urine Sperm Ur Oval Fat Bodies COVID-19 (ROBERT) COVID-19 Clin Com Blood Type A Positive Antibody Screen NEGATIVE 08/30/20 08/30/20 08/30/20 07:25 07:25 07:25 WBC 10.9 H RBC 3.30 L Hgb 9.6 L Hct 28.8 L MCV 87.3 MCH 29.1 MCHC 33.3 RDW 13.0 Plt Count 183 MPV 10.2 Immature Gran % (Auto) 0.6 H Neut % (Auto) 73.9 H Lymph % (Auto) 15.0 L [place] % (Auto) 7.6 Eos % (Auto) 2.5 Baso % (Auto) 0.4 Lymph # (Auto) 1.6 [place] # (Auto) 0.8 Eos # (Auto) 0.3 Baso # (Auto) 0.0 Abs Immat Gran (auto) 0.06 H Absolute Neuts (auto) 8.0 Absolute Nucleated RBC 0.000 Nucleated RBC % (auto) 0.0 PT INR APTT Sodium 133 L Potassium 4.1 Chloride 101 Carbon Dioxide 24 Anion Gap 12 BUN 18 H Creatinine 0.74 Estim Creat Clear Calc 84.7 Estimated GFR > 60 Random Glucose 128 H Fasting Glucose Lactic Acid Calcium 7.8 L Magnesium Total Creatine Kinase Troponin I High Sens B-Natriuretic Peptide 435 H Procalcitonin Urine Color Urine Appearance Urine pH Ur Specific [place] Urine Protein Urine Glucose (UA) Urine Ketones Urine Blood Urine Nitrite Ur Leukocyte Esterase Urine RBC Urine WBC Urine WBC Clumps Ur Squamous Epith Cells Ur Renal Epithelial Cell Urine Crystals Ridgetop Biurate Crystals Calcium Carbonate Cryst Calcium Phosphate Cryst Calcium Oxalate Crystal Leucine Crystals Cystine Crystals Uric Acid Crystals Triple Phos Crystals Tyrosine Crystals Other Crystals Amorphous Sediment Urine Bacteria Epithelial Casts Fatty Casts Hyaline Casts Granular Casts Waxy Casts RBC Casts WBC Casts Other Casts Urine Mucus Urine Trichomonas Urine Yeast Urine Sperm Ur Oval Fat Bodies COVID-19 (ROBERT) COVID-19 Clin Com Blood Type Antibody Screen 08/30/20 08/31/20 08/31/20 07:25 06:00 06:00 WBC 8.3 RBC 3.29 L Hgb 9.5 L Hct 29.3 L MCV 89.1 MCH 28.9 MCHC 32.4 RDW 12.7 Plt Count 184 MPV 9.8 Immature Gran % (Auto) 0.5 H Neut % (Auto) 69.3 Lymph % (Auto) 18.4 L [place] % (Auto) 7.1 Eos % (Auto) 4.2 H Baso % (Auto) 0.5 Lymph # (Auto) 1.5 [place] # (Auto) 0.6 Eos # (Auto) 0.4 Baso # (Auto) 0.0 Abs Immat Gran (auto) 0.04 H Absolute Neuts (auto) 5.7 Absolute Nucleated RBC 0.000 Nucleated RBC % (auto) 0.0 PT 13.7 H INR 1.2 H APTT Sodium Potassium Chloride Carbon Dioxide Anion Gap BUN Creatinine Estim Creat Clear Calc Estimated GFR Random Glucose Fasting Glucose Lactic Acid Calcium Magnesium Total Creatine Kinase Troponin I High Sens B-Natriuretic Peptide Procalcitonin 0.12 Urine Color Urine Appearance Urine pH Ur Specific [place] Urine Protein Urine Glucose (UA) Urine Ketones Urine Blood Urine Nitrite Ur Leukocyte Esterase Urine RBC Urine WBC Urine WBC Clumps Ur Squamous Epith Cells Ur Renal Epithelial Cell Urine Crystals [place]to Biurate Crystals Calcium Carbonate Cryst Calcium Phosphate Cryst Calcium Oxalate Crystal Leucine Crystals Cystine Crystals Uric Acid Crystals Triple Phos Crystals Tyrosine Crystals Other Crystals Amorphous Sediment Urine Bacteria Epithelial Casts Fatty Casts Hyaline Casts Granular Casts Waxy Casts RBC Casts WBC Casts Other Casts Urine Mucus Urine Trichomonas Urine Yeast Urine Sperm Ur Oval Fat Bodies COVID-19 (ROBERT) COVID-19 Clin Com Blood Type Antibody Screen Airway Mallampati Class: II TM Dist: >3cm Neck ROM: Full Denture: Upper and Lower Loose/Missing/Broken Teeth: No Heart: paced Lungs: nl Other: ao Assessment and Plan Assessment Anesthesia Assessment: Anesthesia Plan Discussed and Chart Reviewed Final Anesthetic Review NPO: Yes ASA Class: III Final Preanesthetic Review: No Changes in Pt Med Stat, Meds/Allgs Chart Reviewed, Consent Obtained/Reviewed and Anes Risks/Benef Reviewed Patient Risk: High Procedure Risk: Intermediate Anesthetic Plan Anesthetic Plan: GA Disposition: Standard PACU
[2020-08-31] MEDS: ceFAZolin Sodium/Dextrose,Iso 2 GM/50 ML PIGGYBACK IV (13:36)
--- NOTE | 2020-08-31 14:38 | FL_ITS ---
EXAMINATION: XR FLUOROSCOPY WITH IMAGES CLINICAL INFORMATION: ORIF right hip. COMPARISON: 08/28/2020 TECHNIQUE: Fluoroscopy performed by Dr. Vick. Fluoroscopy time: 1.4 minutes DAP: 558 mGy-cm2 Images: 2 FINDINGS: Intraoperative fluoroscopy was provided for use by Dr. Vick. Two fluoroscopic images demonstrate 2 partially threaded cannulated screws transfixing the right femoral subcapital fracture with near-anatomic positioning and alignment. FL/FL guidance in OR IMPRESSION: Status post ORIF right femoral subcapital fracture. Intraoperative fluoroscopy provided for use by Dr. Vick. Please see procedure note for details.
--- NOTE | 2020-08-31 15:09 | PM.PRCOR ---
Brief Operative Note Date of procedure: 08/31/20 Pre-op diagnosis: fractured right hip Post-op diagnosis: same Procedure: operative fixation right hip with percutaneous screws Anesthesia: ELVIEA Surgeon: Keila Vick Estimated blood loss (mL): 10 Condition: stable Disposition: PACU
[2020-08-31] MEDS: HYDROmorphone HCl 0.5 MG/0.5 ML SYRINGE 0.25 MG IVPUSH ×2 (15:34→15:41)
[2020-08-31] MEDS: Lactated Ringers 1,000 ML 50 ML IVCONT (18:14)
[2020-08-31] MEDS: Melatonin 3 MG TABLET 6 MG PO (20:20)
[2020-08-31] MEDS: Aspirin 325 MG TABLET PO (20:21)
[2020-08-31] MEDS: Docusate Sodium 100 MG CAPSULE PO (20:22)
[2020-08-31] MEDS: clonazePAM 1 MG TABLET PO (20:22)
[2020-08-31] MEDS: Calcium + Vitamin D 250 MG TABLET 500 MG PO (20:23)
[2020-08-31] MEDS: Zolpidem Tartrate 5 MG TABLET PO (21:01)
[2020-09-01] VITALS (7 sets, daily range): BP systolic 100–136; BP diastolic 53–75; PULSE 69–78; RESP 16–19; TEMP 36.2–36.7; O2SAT 93–98
--- NOTE | 2020-09-01 00:44 | OP_ITS ---
SURGEON: Keila Vick MD PREOPERATIVE DIAGNOSIS: Garden 1 subcapital fracture, right hip. POSTOPERATIVE DIAGNOSIS: [place] 1 subcapital fracture, right hip. PROCEDURE PERFORMED: Operative fixation of right hip with percutaneous screws. ESTIMATED BLOOD LOSS: COMPLICATIONS: ANESTHESIA: ASSISTANTS: SPECIMENS: CLINICAL NOTE: This lady fell and injured her hip, and presented to the emergency department. She was found to have the above-noted injury. After explaining the risks, benefits, and alternatives, and answering all the questions of her healthcare proxy, her daughter, it was mutually agreed upon to carry out the following procedure. DESCRIPTION OF PROCEDURE: Under general anesthetic, the patient was placed supine on the fracture table. The left leg was flexed, abducted, and externally rotated out of the way. The right leg was placed in standard boot traction with minimal traction. Under fluoroscopic guidance, the fracture was identified. The right hip was then prepped and draped in standard fashion. Surgical time-out was then performed. The patient was identified, procedure confirmed, site confirmed. Medical analogy and history were reviewed. Preoperative antibiotics were given. Standard DVT prophylaxis was in place. All other items were discussed and agreed upon. A standard 1 cm incision was made on the lateral side. Under fluoroscopic guide, 2 screws were inserted in parallel fashion, both on the AP and lateral plane. They were measured and drilled, and the appropriate length screw was inserted with excellent purchase into subchondral bone. At this point, the wires were withdrawn. Final images were taken that demonstrating the fracture was maintained in excellent position. The screw was in excellent alignment, position, and contained within the head. Therefore, we proceeded to closure. Wound was irrigated. Skin approximated using interrupted 2-0 Dexon. Dermabond, Steri-Strips, and sterile dressing were then applied. The patient was then taken out of traction. The anesthesia was reversed. Transferred supine to the room bed, then taken to recovery room in good condition. Intraoperatively, there was 10 mL blood loss. No complications. MD ILAN SotoI/BRADL / [id number]
[2020-09-01] MEDS: Morphine Sulfate 2 MG/ML CARTRIDGE IVPUSH ×4 (07:47→22:40)
[2020-09-01] MEDS: Calcium + Vitamin D 250 MG TABLET 500 MG PO ×2 (08:28→20:40)
[2020-09-01] MEDS: Metoprolol Succinate ER 100 MG TAB.ER.24H PO (08:31)
[2020-09-01] MEDS: Ferrous Sulfate 324 MG TABLET.DR PO (08:31)
[2020-09-01] MEDS: Cholecalciferol (Vitamin D3) 10 MCG TABLET PO (08:31)
[2020-09-01] MEDS: PARoxetine HCL 20 MG TABLET PO (08:31)
[2020-09-01] MEDS: HYDROcodone Bit/Acetam 5/325 TABLET 1 TAB PO ×3 (08:31→16:49)
[2020-09-01] MEDS: Multivitamin TABLET 1 TAB PO (08:31)
[2020-09-01] MEDS: Aspirin 325 MG TABLET PO ×2 (08:32→20:39)
[2020-09-01] MEDS: Atorvastatin Calcium 10 MG TABLET PO (08:32)
[2020-09-01] MEDS: Zinc Sulfate 220 MG CAPSULE PO (08:32)
--- NOTE | 2020-09-01 08:42 | HO.POSTANES ---
Post Anesthesia Evaluation Post Anesthesia Evaluation Vital Signs: Vital Signs Temp Pulse Resp BP Pulse Ox 09/01/20 07:40 97.1 F 71 17 118/74 95 08/31/20 23:44 97.8 F 80 19 112/58 L 96 Anesthesia: General Mental Status: Awake Pain Control: Satisfactory Nausea/Vomiting: None Hydration: Adequate Anesthesia-Related Issues: No Anes. Related Issues
[2020-09-01 09:02] LABS: Hematocrit 29.9 % (37-47); Hemoglobin 9.9 g/dl (12.0-16.0)
--- NOTE | 2020-09-01 09:41 | PM.PNORT ---
Subjective Subjective Date of Service: 09/01/20 Principal diagnosis: fractured right hip Interval history: POD1 s/p rt hip pinning. Patient states that she had increased pain overnight however this has improved and she is resting comfortably in bed this morning. Physical Exam Vital Signs: Vital Signs: Last Vital Signs Temp 97.1 F 09/01/20 07:40 Pulse 71 09/01/20 07:40 Resp 17 09/01/20 07:40 BP 118/74 09/01/20 07:40 Pulse Ox 95 09/01/20 07:40 Body Mass Index 29.3 Const: General: cooperative, healthy appearing and no acute distress Resp: Effort & Inspection: normal respiratory effort and able to speak in complete sentences Cardio: Rate: regular rate Peripheral pulses: Peripheral pulses 2+ throughout GI: Inspection: Yes normal to inspection Palpation (GI): Soft to palpation Skin: General skin exam: no rashes or lesions noted Extrem: Other: no erythema, edema, redness, or warmth over the rt hip. NVI Progress Note: A&P Assessment and plan (1) Closed right hip fracture: Status: Acute Assessment and Plan: Continue pain mgmnt Begin ASA to resume Apixaban 48 hours after surgery for dvt ppx begin PT for rt hip pinning Dispo planning-Pending PT eval, pain mgmnt Fall Risk Details Current Medications: Current Medications Generic Name Dose Route Start Last Admin Trade Name Freq PRN Reason Stop Dose Admin Acetaminophen 650 mg 08/28/20 14:51 08/30/20 09:15 Acetaminophen 325 Mg Tablet PO 650 mg Q6H PRN Administration Pain, Mild (Pain Scale 1-3) Acetaminophen 650 mg 08/31/20 13:48 Acetaminophen 325 Mg Tablet PO ONCE PRN Pain, Mild (Pain Scale 1-3) Hydrocodone Bitart/Acetaminophen 1 tab 08/29/20 09:43 09/01/20 08:31 Hydrocodone Bit/Acetam 5/325 Tablet PO 1 tab Q4H PRN Administration pain,moderate Albuterol Sulfate 4 puff 08/28/20 17:51 Albuterol Sulfate 90 Mcg 8 Gm Inhaler INHALE Q4H PRN shortness of breath or wheeze Aspirin 325 mg 08/31/20 21:00 09/01/20 08:32 Aspirin 325 Mg Tablet PO 325 mg BID RON Administration Atorvastatin Calcium 10 mg 08/29/20 09:00 09/01/20 08:32 Atorvastatin Calcium 10 Mg Tablet PO 10 mg DAILY RON Administration Calcium Carbonate/Cholecalciferol 500 mg 08/28/20 21:00 09/01/20 08:28 Calcium + Vitamin D 250 Mg Tablet PO 500 mg BID RON Administration Clonazepam 1 mg 08/28/20 14:51 08/31/20 20:22 Clonazepam 1 Mg Tablet PO 1 mg BID PRN Administration Anxiety Docusate Sodium 100 mg 08/28/20 14:51 08/31/20 20:22 Docusate Sodium 100 Mg Capsule PO 100 mg DAILY PRN Administration Constipation Ferrous Sulfate 324 mg 08/29/20 09:00 09/01/20 08:31 Ferrous Sulfate 324 Mg Tablet.Dr PO 324 mg DAILY RON Administration Lactated Ringer's 1,000 mls @ 50 mls/hr 08/31/20 14:00 08/31/20 18:14 Lr IVCONT 50 mls/hr .Q20H RON Administration Melatonin 6 mg 08/28/20 15:07 08/31/20 20:20 Melatonin 3 Mg Tablet PO 6 mg BEDTIME PRN Administration Sleep Metoprolol Succinate 100 mg 08/29/20 09:00 09/01/20 08:31 Metoprolol Succinate Er 100 Mg Tab.Er.24h PO 100 mg DAILY RON Administration Protocol Morphine Sulfate 2 mg 08/31/20 17:35 09/01/20 07:47 Morphine Sulfate 2 Mg/Ml Cartridge IVPUSH 2 mg Q2H PRN Administration Pain, Severe (Pain Scale 7-10) Multivitamins/Vitamin C 1 tab 08/29/20 09:00 09/01/20 08:31 Multivitamin Tablet PO 1 tab DAILY RON Administration Naloxone HCl 0.2 mg 08/31/20 17:35 Naloxone Hcl 0.4 Mg/Ml Vial IVPUSH Q2M PRN Excessive sedation or RR < 8 Nicotine 7 mg 08/28/20 16:45 09/01/20 08:41 Nicotine 7 Mg Patch.Td24 TRANSDERMA Not Given DAILY RON Ondansetron HCl 4 mg 08/28/20 14:51 08/28/20 20:40 Ondansetron Hcl 4 Mg/2 Ml Vial IVPUSH 4 mg Q8H PRN Administration Nausea and Vomiting Paroxetine HCl 20 mg 08/29/20 09:00 12/15/20 08:31 Paroxetine Hcl 20 Mg Tablet PO 20 mg DAILY RON Administration Pharmacy Consult 1 each 08/28/20 08:29 Consult Rx Perform Med Rec MISCELLANE ONCE PRN Consult order Sodium Chloride 3 ml 08/28/20 16:00 09/01/20 07:50 0.9 % Sodium Chloride Flush 3 Ml Syringe IVFLUSH Not Given QSHIFT RON Sodium Chloride 3 ml 08/31/20 17:35 09/01/20 07:50 0.9 % Sodium Chloride Flush 3 Ml Syringe IVFLUSH Not Given QSHIFT RON Vitamin D 10 mcg 08/29/20 09:00 09/01/20 08:31 Cholecalciferol (Vitamin D3) 10 Mcg Tablet PO 10 mcg DAILY RON Administration Zinc Sulfate 220 mg 08/29/20 09:00 09/01/20 08:32 Zinc Sulfate 220 Mg Capsule PO 220 mg DAILY RON Administration Zolpidem Tartrate 5 mg 08/28/20 14:51 08/31/20 21:01 Zolpidem Tartrate 5 Mg Tablet PO 5 mg BEDTIME PRN Administration Sleep Time Spent With Patient Time: Total time spent is greater than 50% in coordination of care (as documented) at patient's floor/unit and/or counseling patient: Time with patient: 15 - 24 minutes
--- NOTE | 2020-09-01 10:54 | HO.PM.IMPN ---
Subjective Subjective Date of Service: 09/01/20 Interval History: Postop day 1. Patient seen and examined at bedside. She is sitting in chair, reports that her pain is tolerable, she has not moved her bowels yet, denies any nausea vomiting or abdominal pain. No chest pain, no shortness of breath. She is asking for her sleep ill, reports that she takes Ambien at bedtime. Physical Exam Vital Signs: Vital Signs: Last Vital Signs Temp 97.1 F 09/01/20 07:40 Pulse 71 09/01/20 07:40 Resp 17 09/01/20 07:40 BP 118/74 09/01/20 07:40 Pulse Ox 95 09/01/20 07:40 Body Mass Index 29.3 Const: Other: Sitting in chair comfortably, not in any distress General: cooperative and no acute distress Orientation/consciousness: patient oriented x3 Eyes: General: appearance normal, both eyes and all related structures Pupils: Equal, round and reactive pupils present Resp: Effort & Inspection: normal respiratory effort and able to speak in complete sentences Auscultation: clear to auscultation bilaterally Cardio: Rate: regular rate Rhythm: regular rhythm GI: Palpation (GI): Soft to palpation Auscultation: normal bowel sounds Skin: General skin exam: no rashes or lesions noted Neuro: General: patient oriented x3 Cranial nerves: Yes Equal, round and reactive pupils present Cognition (Neuro): normal cognition Extrem: Other: legs extended in bed General: Yes normal to inspection and Yes no pedal edema Objective Data Current Medications Generic Name Dose Route Start Last Admin Trade Name Freq PRN Reason Stop Dose Admin Acetaminophen 650 mg 08/28/20 14:51 08/30/20 09:15 Acetaminophen 325 Mg Tablet PO 650 mg Q6H PRN Administration Pain, Mild (Pain Scale 1-3) Acetaminophen 650 mg 08/31/20 13:48 Acetaminophen 325 Mg Tablet PO ONCE PRN Pain, Mild (Pain Scale 1-3) Hydrocodone Bitart/Acetaminophen 1 tab 08/29/20 09:43 09/01/20 08:31 Hydrocodone Bit/Acetam 5/325 Tablet PO 1 tab Q4H PRN Administration pain,moderate Albuterol Sulfate 4 puff 08/28/20 17:51 Albuterol Sulfate 90 Mcg 8 Gm Inhaler INHALE Q4H PRN shortness of breath or wheeze Aspirin 325 mg 08/31/20 21:00 09/01/20 08:32 Aspirin 325 Mg Tablet PO 325 mg BID RON Administration Atorvastatin Calcium 10 mg 08/29/20 09:00 09/01/20 08:32 Atorvastatin Calcium 10 Mg Tablet PO 10 mg DAILY RON Administration Calcium Carbonate/Cholecalciferol 500 mg 08/28/20 21:00 09/01/20 08:28 Calcium + Vitamin D 250 Mg Tablet PO 500 mg BID RON Administration Clonazepam 1 mg 08/28/20 14:51 08/31/20 20:22 Clonazepam 1 Mg Tablet PO 1 mg BID PRN Administration Anxiety Docusate Sodium 100 mg 08/28/20 14:51 08/31/20 20:22 Docusate Sodium 100 Mg Capsule PO 100 mg DAILY PRN Administration Constipation Ferrous Sulfate 324 mg 08/29/20 09:00 09/01/20 08:31 Ferrous Sulfate 324 Mg Tablet.Dr PO 324 mg DAILY RON Administration Furosemide 40 mg 09/01/20 10:55 Furosemide 40 Mg Tablet PO DAILY [facility] Protocol Lactated Ringer's 1,000 mls @ 50 mls/hr 08/31/20 14:00 09/01/20 10:37 Lr IVCONT Not Given .Q20H [facility] Melatonin 6 mg 08/28/20 15:07 08/31/20 20:20 Melatonin 3 Mg Tablet PO 6 mg BEDTIME PRN Administration Sleep Metoprolol Succinate 100 mg 08/29/20 09:00 09/01/20 08:31 Metoprolol Succinate Er 100 Mg Tab.Er.24h PO 100 mg DAILY RON Administration Protocol Morphine Sulfate 2 mg 08/31/20 17:35 09/01/20 07:47 Morphine Sulfate 2 Mg/Ml Cartridge IVPUSH 2 mg Q2H PRN Administration Pain, Severe (Pain Scale 7-10) Multivitamins/Vitamin C 1 tab 08/29/20 09:00 09/01/20 08:31 Multivitamin Tablet PO 1 tab DAILY [facility] Administration Naloxone HCl 0.2 mg 08/31/20 17:35 Naloxone Hcl 0.4 Mg/Ml Vial IVPUSH Q2M PRN Excessive sedation or RR < 8 Nicotine 7 mg 08/28/20 16:45 09/01/20 08:41 Nicotine 7 Mg Patch.Td24 TRANSDERMA Not Given DAILY [facility] Ondansetron HCl 4 mg 08/28/20 14:51 08/28/20 20:40 Ondansetron Hcl 4 Mg/2 Ml Vial IVPUSH 4 mg Q8H PRN Administration Nausea and Vomiting Paroxetine HCl 20 mg 08/29/20 09:00 09/01/20 08:31 Paroxetine Hcl 20 Mg Tablet PO 20 mg DAILY RON Administration Pharmacy Consult 1 each 08/28/20 08:29 Consult Rx Perform Med Rec MISCELLANE ONCE PRN Consult order Polyethylene Glycol 17 gm 09/01/20 10:52 Polyethylene Glycol 3350 17 Gm Powd.Pack PO DAILY PRN Constipation Sodium Chloride 3 ml 08/28/20 16:00 09/01/20 07:50 0.9 % Sodium Chloride Flush 3 Ml Syringe IVFLUSH Not Given QSHIFT RON Sodium Chloride 3 ml 08/31/20 17:35 09/01/20 07:50 0.9 % Sodium Chloride Flush 3 Ml Syringe IVFLUSH Not Given QSHIFT [facility] Vitamin D 10 mcg 08/29/20 09:00 09/01/20 08:31 Cholecalciferol (Vitamin D3) 10 Mcg Tablet PO 10 mcg DAILY RON Administration Zinc Sulfate 220 mg 08/29/20 09:00 09/01/20 08:32 Zinc Sulfate 220 Mg Capsule PO 220 mg DAILY [facility] Administration Zolpidem Tartrate 5 mg 08/28/20 14:51 08/31/20 21:01 Zolpidem Tartrate 5 Mg Tablet PO 5 mg BEDTIME PRN Administration Sleep Labs CBC & Chem 7: 09/01/20 08:04 08/30/20 07:25 Microbiology Microbiology Results: Microbiology 08/28/20 13:15 Blood - Venous Blood Culture - Preliminary No growth after 48 hours. 08/28/20 13:08 Blood - Venous Blood Culture - Preliminary No growth after 48 hours.
[2020-09-01] MEDS: clonazePAM 1 MG TABLET PO (12:16)
[2020-09-01] MEDS: Furosemide 40 MG TABLET PO (12:16)
--- NOTE | 2020-09-01 12:32 | MHC.CM.PN ---
PT NOT READY FOR D/C TODAY, SPOKE WITH KRAIG FROM [facility] AND SHE WILL WORK ON INSURANCE AUTHORIZATION FOR 09/02/20.
[2020-09-01] MEDS: Lactated Ringers 1,000 ML 50 ML IVCONT (19:22)
[2020-09-01] MEDS: Acetaminophen 325 MG TABLET 650 MG PO (20:39)
[2020-09-01] MEDS: Melatonin 3 MG TABLET 6 MG PO (20:40)
[2020-09-01] MEDS: Zolpidem Tartrate 5 MG TABLET PO (20:40)
[2020-09-02 04:25] VITALS: RESP 18
[2020-09-02] MEDS: Morphine Sulfate 2 MG/ML CARTRIDGE IVPUSH (04:25)
[2020-09-02] MEDS: HYDROcodone Bit/Acetam 5/325 TABLET 1 TAB PO ×3 (05:58→15:26)
[2020-09-02 08:00] VITALS: BP 149/59; PULSE 83; RESP 16; TEMP 36.6; O2SAT 94
[2020-09-02] MEDS: Aspirin 325 MG TABLET PO (09:13)
[2020-09-02] MEDS: Calcium + Vitamin D 250 MG TABLET 500 MG PO (09:13)
[2020-09-02] MEDS: Multivitamin TABLET 1 TAB PO (09:13)
[2020-09-02] MEDS: Zinc Sulfate 220 MG CAPSULE PO (09:13)
[2020-09-02] MEDS: Ferrous Sulfate 324 MG TABLET.DR PO (09:13)
[2020-09-02] MEDS: Cholecalciferol (Vitamin D3) 10 MCG TABLET PO (09:13)
[2020-09-02] MEDS: Metoprolol Succinate ER 100 MG TAB.ER.24H PO (09:13)
[2020-09-02] MEDS: Atorvastatin Calcium 10 MG TABLET PO (09:13)
[2020-09-02] MEDS: Furosemide 40 MG TABLET PO (09:13)
[2020-09-02] MEDS: PARoxetine HCL 20 MG TABLET PO (09:13)
--- NOTE | 2020-09-02 10:21 | PM.PNORT ---
Subjective Subjective Date of Service: 09/02/20 Principal diagnosis: fractured right hip Interval history: POD 2 s/p Rt hip pinning no overnight events, resting in bed, has been working with PT no concerns. Physical Exam Vital Signs: Vital Signs: Last Vital Signs Temp 98.0 F 09/01/20 23:55 Pulse 71 09/01/20 23:55 Resp 18 09/02/20 04:25 BP 136/53 L 09/01/20 23:55 Pulse Ox 96 09/01/20 23:55 Body Mass Index 29.3 Const: General: cooperative, healthy appearing and no acute distress Resp: Effort & Inspection: normal respiratory effort and able to speak in complete sentences Cardio: Rate: regular rate Peripheral pulses: Peripheral pulses 2+ throughout GI: Inspection: Yes normal to inspection Palpation (GI): Soft to palpation Skin: General skin exam: no rashes or lesions noted Extrem: Other: Right hip skin intact, no erythema or edema sensation intact Progress Note: A&P Assessment and plan (1) Closed right hip fracture: Status: Acute Assessment and Plan: Continue pain mgmnt Resume apixiban 48 hours after surgery PT for RT hip fx-gait training and strength Dispo planning-PT and STR placement Fall Risk Details Current Medications: Current Medications Generic Name Dose Route Start Last Admin Trade Name Freq PRN Reason Stop Dose Admin Acetaminophen 650 mg 08/28/20 14:51 09/01/20 20:39 Acetaminophen 325 Mg Tablet PO 650 mg Q6H PRN Administration Pain, Mild (Pain Scale 1-3) Acetaminophen 650 mg 08/31/20 13:48 Acetaminophen 325 Mg Tablet PO ONCE PRN Pain, Mild (Pain Scale 1-3) Hydrocodone Bitart/Acetaminophen 1 tab 08/29/20 09:43 09/02/20 05:58 Hydrocodone Bit/Acetam 5/325 Tablet PO 1 tab Q4H PRN Administration pain,moderate Albuterol Sulfate 4 puff 08/28/20 17:51 Albuterol Sulfate 90 Mcg 8 Gm Inhaler INHALE Q4H PRN shortness of breath or wheeze Aspirin 325 mg 08/31/20 21:00 09/01/20 20:39 Aspirin 325 Mg Tablet PO 325 mg BID RON Administration Atorvastatin Calcium 10 mg 08/29/20 09:00 09/01/20 08:32 Atorvastatin Calcium 10 Mg Tablet PO 10 mg DAILY RON Administration Calcium Carbonate/Cholecalciferol 500 mg 08/28/20 21:00 09/01/20 20:40 Calcium + Vitamin D 250 Mg Tablet PO 500 mg BID RON Administration Clonazepam 1 mg 08/28/20 14:51 09/01/20 12:16 Clonazepam 1 Mg Tablet PO 1 mg BID PRN Administration Anxiety Docusate Sodium 100 mg 08/28/20 14:51 08/31/20 20:22 Docusate Sodium 100 Mg Capsule PO 100 mg DAILY PRN Administration Constipation Ferrous Sulfate 324 mg 08/29/20 09:00 09/01/20 08:31 Ferrous Sulfate 324 Mg Tablet.Dr PO 324 mg DAILY RON Administration Furosemide 40 mg 09/01/20 10:55 09/01/20 12:16 Furosemide 40 Mg Tablet PO 40 mg DAILY RON Administration Protocol Lactated Ringer's 1,000 mls @ 50 mls/hr 08/31/20 14:00 09/01/20 19:22 Lr IVCONT 50 mls/hr .Q20H RON Administration Melatonin 6 mg 08/28/20 15:07 09/01/20 20:40 Melatonin 3 Mg Tablet PO 6 mg BEDTIME PRN Administration Sleep Metoprolol Succinate 100 mg 08/29/20 09:00 09/01/20 08:31 Metoprolol Succinate Er 100 Mg Tab.Er.24h PO 100 mg DAILY RON Administration Protocol Morphine Sulfate 2 mg 08/31/20 17:35 09/02/20 04:25 Morphine Sulfate 2 Mg/Ml Cartridge IVPUSH 2 mg Q2H PRN Administration Pain, Severe (Pain Scale 7-10) Multivitamins/Vitamin C 1 tab 08/29/20 09:00 09/01/20 08:31 Multivitamin Tablet PO 1 tab DAILY RON Administration Naloxone HCl 0.2 mg 08/31/20 17:35 Naloxone Hcl 0.4 Mg/Ml Vial IVPUSH Q2M PRN Excessive sedation or RR < 8 Nicotine 7 mg 08/28/20 16:45 09/01/20 08:41 Nicotine 7 Mg Patch.Td24 TRANSDERMA Not Given DAILY RON Ondansetron HCl 4 mg 08/28/20 14:51 08/28/20 20:40 Ondansetron Hcl 4 Mg/2 Ml Vial IVPUSH 4 mg Q8H PRN Administration Nausea and Vomiting Paroxetine HCl 20 mg 08/29/20 09:00 09/01/20 08:31 Paroxetine Hcl 20 Mg Tablet PO 20 mg DAILY RON Administration Pharmacy Consult 1 each 08/28/20 08:29 Consult Rx Perform Med Rec MISCELLANE ONCE PRN Consult order Polyethylene Glycol 17 gm 09/01/20 10:52 Polyethylene Glycol 3350 17 Gm Powd.Pack PO DAILY PRN Constipation Sodium Chloride 3 ml 08/28/20 16:00 09/01/20 20:40 0.9 % Sodium Chloride Flush 3 Ml Syringe IVFLUSH Not Given QSHIFT RON Sodium Chloride 3 ml 08/31/20 17:35 09/01/20 20:40 0.9 % Sodium Chloride Flush 3 Ml Syringe IVFLUSH Not Given QSHIFT RON Vitamin D 10 mcg 08/29/20 09:00 09/01/20 08:31 Cholecalciferol (Vitamin D3) 10 Mcg Tablet PO 10 mcg DAILY RON Administration Zinc Sulfate 220 mg 08/29/20 09:00 09/01/20 08:32 Zinc Sulfate 220 Mg Capsule PO 220 mg DAILY RON Administration Zolpidem Tartrate 5 mg 08/28/20 14:51 09/01/20 20:40 Zolpidem Tartrate 5 Mg Tablet PO 5 mg BEDTIME PRN Administration Sleep Time Spent With Patient Time: Total time spent is greater than 50% in coordination of care (as documented) at patient's floor/unit and/or counseling patient: Time with patient: 15 - 24 minutes
[2020-09-02] MEDS: clonazePAM 1 MG TABLET PO (10:42)
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
[2020-09-02 11:46] LABS: COVID-19 Test Negative (Negative)
[2020-09-02 12:26] VITALS: BP 100/61; PULSE 71; RESP 16; TEMP 36.7; O2SAT 92
--- NOTE | 2020-09-02 13:33 | MHC.CM.PN ---
Addendum entered by Flor Rice RN 09/02/20 14:13: IMM REVIEWED WITH PATIENT. Original Note: PT DISCHARGING TO [facility]IA [facility] AT APPROXIMATELY 2PM, [facility] DID REPORT THEY ARE RUNNING LATE. [facility] RE[employer] [employer] NURSE AWARE OF DISPO AND TRANSPORT. HCP/DAUGHTER NENO NOTIFIED OF TRANSFER.
[2020-09-02 16:33] VITALS: BP 96/63; PULSE 69; RESP 18; TEMP 36.4; O2SAT 95
== END 2020-09-02 16:36 | disposition skilled nursing facility (03) | DRG 956 ==
LOC: HO.ED 08:35 → HO.S3 12:32
PROVIDERS: Orthopaedic Surgery; Physician Assistant Medical; Admitting Provider Family Medicine; Emergency Provider Emergency Medicine; Visit Provider Internal Medicine
DX: S72.011A Unspecified intracapsular fracture of right femur, initial encounter for closed fracture (principal); T79.6XXA Traumatic ischemia of muscle, initial encounter; D62 Acute posthemorrhagic anemia; W18.30XA Fall on same level, unspecified, initial encounter; Y93.9 Activity, unspecified; Y92.009 Unspecified place in unspecified non-institutional (private) residence as the place of occurrence of the external cause; Y99.9 Unspecified external cause status; F41.9 Anxiety disorder, unspecified; I48.91 Unspecified atrial fibrillation; K21.9 Gastro-esophageal reflux disease without esophagitis; D72.829 Elevated white blood cell count, unspecified; Z95.0 Presence of cardiac pacemaker; F32.9 Major depressive disorder, single episode, unspecified; F17.210 Nicotine dependence, cigarettes, uncomplicated; Z20.828 Contact with and (suspected) exposure to other viral communicable diseases; Z71.6 Tobacco abuse counseling; Z88.2 Allergy status to sulfonamides; Z79.01 Long term (current) use of anticoagulants; Z79.891 Long term (current) use of opiate analgesic; Z79.899 Other long term (current) drug therapy
CPT/HCPCS: 36415; 70450; 71045; 71275; 73070; 73502; 80048; 81001; 82550; 83605; 83735; 83880; 84145; 84484; 85014; 85018; 85025; 85610; 85730; 86850; 86900; 86901; 87040; 87635; 93005; 93306; 96361; 96374; 97116; 97162; 99284; 99285; C1713; C1769; J0690; J1100; J1170; J2270; J2370; J2405; J3010; Q9967

== ENCOUNTER 2020-09-28 13:59 | Outpatient (REF) | payer MEDICARE, SELFPAY | END 2020-09-28 14:00 | disposition home or self-care (01) | LOC: HO.HOSX 13:59 | PROVIDERS: Visit Provider Orthopaedic Surgery | DX: Z13.89 Encounter for screening for other disorder (principal) ==

== ENCOUNTER 2020-09-29 12:26 | Outpatient (REF) | payer MEDICARE, SELFPAY ==
--- NOTE | 2020-09-29 12:31 | XR_ITS ---
EXAMINATION: XR HIP, RIGHT CLINICAL INFORMATION: Right hip pain COMPARISON: Previous x-ray 08/28/2020 and fluoroscopic images 08/31/2020 TECHNIQUE: Two views of the right hip and one view of the pelvis. FINDINGS: There are 2 screws transfixing the subcapital femoral neck fracture. Orthopedic hardware appears unchanged. Bone alignment is anatomic. There may be medial bilateral hip joint space narrowing. Bones of the pelvis are unremarkable. There are degenerative changes of the visualized lower lumbar spine. Soft tissues are unremarkable. XR/XR hip RT w PEL1V IMPRESSION: ORIF of subcapital right femoral neck fracture similar to intraoperative exam.
== END 2020-09-29 12:27 | disposition home or self-care (01) ==
LOC: HO.HOSX 12:26
PROVIDERS: PCP Internal Medicine; Visit Provider Orthopaedic Surgery
DX: S72.011D Unspecified intracapsular fracture of right femur, subsequent encounter for closed fracture with routine healing (principal); F17.210 Nicotine dependence, cigarettes, uncomplicated
CPT/HCPCS: 73502; 99212

== ENCOUNTER 2020-11-24 14:17 | Outpatient (REF) | payer MEDICARE, SELFPAY | END 2020-11-24 14:18 | disposition home or self-care (01) | LOC: HO.HOSX 14:17 | PROVIDERS: Visit Provider Orthopaedic Surgery | DX: Z13.89 Encounter for screening for other disorder (principal) ==

== ENCOUNTER 2020-11-25 08:59 | Outpatient (REF) | payer MEDICARE, SELFPAY ==
--- NOTE | ~2020-11-25 | XR_ITS ---
EXAMINATION: XR HIP, RIGHT CLINICAL INFORMATION: Pain right hip. COMPARISON: Right hip and pelvis 09/29/2020 TECHNIQUE: Two views of the right hip. FINDINGS: There are 2 screws traversing the right femoral neck fracture with orthopedic hardware in the alignment. The left hip joint is unremarkable. There is normal symmetry of bilateral SI joints. No visible acute fractures seen. XR/XR hip RT w PEL1V IMPRESSION: ORIF of subcapital right femoral neck fracture similar to previous study 09/29/2020. No dislocation seen.
== END 2020-11-25 09:00 | disposition home or self-care (01) ==
LOC: HO.HOSX 08:59
PROVIDERS: Visit Provider Orthopaedic Surgery
DX: S72.011D Unspecified intracapsular fracture of right femur, subsequent encounter for closed fracture with routine healing (principal)
CPT/HCPCS: 73502; 99212

== ENCOUNTER 2021-04-01 08:32 | Outpatient (REF) | payer MEDICARE, SELFPAY ==
[2021-04-01 10:32] LABS: Alanine Aminotransferase 11 U/L (0-31); Albumin Level 3.9 g/dL (3.5-5.0); Alkaline Phosphatase 120 U/L (39-117); Anion Gap 12 (12-20); Aspartate Amino Transferase 14 U/L (5-31); Bilirubin Total 0.5 mg/dL (0.0-1.0); Blood Urea Nitrogen 15 mg/dL (9-16); Calcium 9.3 mg/dL (8.4-10.2); Carbon Dioxide 29 mmol/L (22-29); Chloride 103 mmol/L (96-108); Estimated Glomerular Filt Rate > 60; Glucose Random 130 mg/dL (60-115); Potassium 4.2 mmol/L (3.3-5.1); Sodium 140 mmol/L (135-145); Total Protein 7.1 g/dL (6.5-8.0)
[2021-04-06 14:26] LABS: Vitamin D 25-OH, D2 <4 ng/mL; Vitamin D 25-OH, D3 24 ng/mL; Vitamin D 25-OH, Total 24 ng/mL (30-100)
== END 2021-04-01 08:33 | disposition home or self-care (01) ==
LOC: HO.LAB 08:32
PROVIDERS: PCP Internal Medicine; Visit Provider Student in an Organized Health Care Education/Training Program
DX: M81.0 Age-related osteoporosis without current pathological fracture (principal); I48.91 Unspecified atrial fibrillation; F41.8 Other specified anxiety disorders; F17.210 Nicotine dependence, cigarettes, uncomplicated; Z96.651 Presence of right artificial knee joint; Z88.2 Allergy status to sulfonamides; Z79.899 Other long term (current) drug therapy
CPT/HCPCS: 36415; 80053; 82306; 99212

== ENCOUNTER 2021-04-29 08:39 | Outpatient (REF) | payer MEDICARE, SELFPAY ==
--- NOTE | ~2021-04-29 | MM_ITS ---
EXAMINATION: BONE DENSITOMETRY CLINICAL INDICATION: Age-related osteoporosis without current pathological fracture. COMPARISON: This is the patient's baseline examination. TECHNIQUE: Using a Tabula DXA System (software version: 13.1) manufactured by [employer], dual-energy x-ray absorptiometry was performed of the lumbar spine and left hip. The images are of good technical quality. Summary results are attached. FINDINGS: AP SPINE L1-L4: BMD 1.054 g/cm2, Z-score -0.2, T-score -1.1, osteopenia. LEFT FEMUR, NECK: BMD 0.734 g/cm2, Z-score -1.0, T-score -2.2, osteopenia. LEFT FEMUR, TOTAL: BMD 0.778 g/cm2, Z-score -0.9, T-score -1.8, osteopenia. IDENTIFIED RISK FACTORS: Menopause, hysterectomy, bilateral oophorectomy, history of fracture (adult), tobacco use (current smoker), recurrent falls, family history (parental hip fracture). HISTORY OF FRACTURE: Humerus/shoulder. Other. MEDICATIONS: Calcium supplements or multivitamin. MM/XR DEXA axial skeleton IMPRESSION: 1. DIAGNOSIS: Osteopenia based on the lowest T-score value of -2.2 in the femoral neck applying World Health Organization criteria. 2. 10-YEAR FRACTURE RISK PREDICTION, FRAX: Major osteoporotic fracture (clinical spine, forearm, hip or shoulder) 34.8%. Hip fracture 17.7%. 3. Treatment Recommendations: NOF guidelines recommend consideration for treatment in postmenopausal women and men age 50 and older presenting with the following: -A hip or vertebral (clinical or morphometric) fracture. -T-score less than or equal to -2.5 at the femoral neck or spine after appropriate evaluation to exclude secondary causes. -Low bone mass at the hip or spine and a 10-year fracture probability by FRAX of greater than or equal to 3% for hip fracture or greater than or equal to 20% for major osteoporotic fracture based on the [place] adapted WHO algorithm. 4. Other Recommendations: All treatment decisions require clinical judgment and consideration of individual patient factors, including patient preferences, comorbidities, previous drug use, risk factors not captured in the FRAX model (e.g. frailty, falls, vitamin D deficiency, increased bone turnover, interval significant decline in bone density) and possible under or overestimation of fracture risk by FRAX. Additional medical evaluation for secondary cause of low bone mineral density may be appropriate. FUTURE SCAN RECOMMENDATION: People with diagnosed cases of osteoporosis or at high risk for fracture should have regular bone mineral density tests. For patients eligible for Medicare, routine testing is allowed once every 2 years. The testing frequency can be increased to one year for patients who have rapidly progressing disease, those who are receiving or discontinuing medical therapy to restore bone mass, or have additional risk factors.
== END 2021-04-29 08:40 | disposition home or self-care (01) ==
LOC: HO.MAMMO 08:39
PROVIDERS: PCP Internal Medicine; Visit Provider Student in an Organized Health Care Education/Training Program
DX: M81.0 Age-related osteoporosis without current pathological fracture (principal); F17.200 Nicotine dependence, unspecified, uncomplicated; Z78.0 Asymptomatic menopausal state; Z91.81 History of falling; Z90.710 Acquired absence of both cervix and uterus; Z90.722 Acquired absence of ovaries, bilateral
CPT/HCPCS: 77080

== ENCOUNTER → 2021-05-07 08:03 | Outpatient (BNVA) | payer MEDICARE, SELFPAY | PROVIDERS: Visit Provider Nurse Practitioner Family | DX: M81.0 Age-related osteoporosis without current pathological fracture (principal) | CPT/HCPCS: 99212 ==

== ENCOUNTER → 2021-06-04 09:23 | Outpatient (BNVA) | payer MEDICARE, SELFPAY | PROVIDERS: Visit Provider Student in an Organized Health Care Education/Training Program | DX: M81.0 Age-related osteoporosis without current pathological fracture (principal) | CPT/HCPCS: 96372 ==

== ENCOUNTER 2021-07-05 08:02 | Emergency (ER) | payer MEDICARE, SELFPAY ==
--- NOTE | ~2021-07-05 | XR_ITS ---
EXAMINATION: XR TOES, RIGHT CLINICAL INFORMATION: Right foot radiographs dated 05/14/2018. COMPARISON: None TECHNIQUE: 3 views of the right toes were obtained. FINDINGS: Post surgical changes are seen in the fifth digit with interval resection of the distal metatarsal head. There is a nondisplaced transverse fracture at the level the proximal metaphysis of the proximal phalanx. The remainder the digits are intact. The soft tissues are unremarkable. XR/XR toe RT min 2V IMPRESSION: 1. Acute, nondisplaced fracture of the proximal phalanx of the fifth digit.
[2021-07-05 08:25] VITALS: BP 119/66; PULSE 73; RESP 16; TEMP 36.7; O2SAT 98; BMI 32.5
--- NOTE | 2021-07-05 08:47 | ED_ITS ---
HPI - Extremity Injury (Lower) General Chief Complaint: Extremity Injury, Lower Stated Complaint: rt foot injury Time Seen by Provider: 07/05/21 08:46 Source: patient Mode of arrival: ambulatory Limitations: no limitations History of Present Illness HPI Narrative: 70-year-old female presents with right 5th toe pain. Patient states she has broken her right little toe before and she kicked the love seat yesterday. She feels that is broken. It is painful but she can bear weight. No numbness or tingling. She does use a walker. Related Data Home Medications Medication Instructions Recorded Confirmed apixaban 5 mg tablet 5 mg PO BID 07/21/20 05/07/21 atorvastatin 10 mg tablet 10 mg PO DAILY 07/21/20 05/07/21 cholecalciferol (vitamin D3) 10 10 mcg PO DAILY 07/21/20 05/07/21 mcg (400 unit) capsule ferrous sulfate 325 mg (65 mg 325 mg PO DAILY 07/21/20 05/07/21 iron) tablet melatonin 5 mg capsule 5 mg PO BEDTIME PRN 07/21/20 05/07/21 metoprolol succinate 50 mg 100 mg PO DAILY 07/21/20 05/07/21 tablet,extended release 24 hr multivitamin 1 tab PO DAILY 07/21/20 05/07/21 calcium carbonate 500 mg (1,250 1 tab PO BID 08/28/20 05/07/21 mg)-vitamin D3 400 unit tablet (Oystercal-D) clonazepam 1 mg tablet 1 mg PO BID PRN 08/28/20 05/07/21 furosemide 40 mg tablet 40 mg PO DAILY 08/28/20 05/07/21 paroxetine HCl 20 mg tablet 20 mg PO DAILY 08/28/20 05/07/21 zinc 50 mg tablet 50 mg PO DAILY 08/28/20 05/07/21 zolpidem 5 mg tablet 5 mg PO BEDTIME PRN 08/28/20 05/07/21 Previous Rx's Medication Instructions Recorded Wheelchair #1 ea 10/06/20 denosumab 60 mg/mL subcutaneous 60 mg SUBCUT [id number] #1 ml 05/07/21 syringe (Prolia) Allergies Allergy/AdvReac Type Severity Reaction Status Date / Time Sulfa (Sulfonamide AdvReac Intermediate VOMITING Verified 05/07/21 08:12 Antibiotics) [SULFA(SULFONAMIDE ANTIBIOTICS)] Review of Systems Review of Systems: Constitutional : No Weight loss, No Fever, No Chills, No Night Sweats,No Fatigue, No Malaise ENT/Mouth : No Hearing loss, No Ear Pain, No Nasal Congestion, NoSinus Pain, No Hoarseness, No sore throat, No Rhinorrhea, NoSwallowing Difficulty Eyes: No Eye Pain, No Swelling, No Redness, No Foreign Body, NoDischarge, No Vision Changes Cardiovascular : No Chest Pain, No SOB, No Dyspnea on Exertion, NoOrthopnea, No Edema, No Palpitations Respiratory : No Cough, No Sputum, No Wheezing, No Smoke Exposure, No Dyspnea Musculoskeletal : Right little toe pain with Skin : No Skin Lesions, No rash Neuro : No Weakness, No Numbness, No Paresthesias, No Loss ofConsciousness, No Dizziness, No Headache Psych : No Anxiety/Panic, No Depression, No SI/HI/AH/VH, No Social Issues, Yes all other systems are reviewed and are negative [facility] Past Medical History Medical History Afib Anxiety Aortic stenosis Asthma Closed right hip fracture Depression Fracture of hip GERD (gastroesophageal reflux disease) Myocardial infarction Normocytic anemia Osteoporosis Pacemaker Surgical History H/O: hysterectomy Status post right knee replacement Social History Social History Household Members: Family Housing: Apartment Do you presently have visiting nurse or other home services: No Alcohol intake: never Cigarette Packs Per Day: 0.25 Cigarettes Per Day: 4 Years Smoked: 55 Advance Directives: No service: No Current occupational status: retired Physical Exam Vital Signs: Vital Signs: Last Vital Signs Temp 98.0 F 07/05/21 08:25 Pulse 73 07/05/21 08:25 Resp 16 07/05/21 08:25 BP 119/66 07/05/21 08:25 Pulse Ox 98 07/05/21 08:25 Body Mass Index 32.5 Const: General: cooperative, no acute distress, well developed, alert and awake Nutritional Appearance: well nourished Orientation/consciousness: patient oriented x3 Limitations: no limitations Eyes: Conjunctivae: conjunctivae normal Pupils: Equal, round and reactive pupils present EOM: EOMs intact bilaterally Neck: Neck: Yes full ROM, Yes no lymphadenopathy and Yes supple Resp: Effort & Inspection: normal respiratory effort and able to speak in complete sentences Auscultation: clear to auscultation bilaterally, no crackles, no rales, no rhonchi and no wheezes Cardio: Rate: regular rate Rhythm: regular rhythm Heart sounds: S1 normal heart sound present and S2 normal heart sound present Skin: General skin exam: no rashes or lesions noted Neuro: General: patient oriented x3, tone normal and moves all extremities Cranial nerves: Yes Equal, round and reactive pupils present Extrem: Right lower extremity: full ROM, normal capillary refill and foot Details: normal capillary refill, tenderness Location: of another digit Location: the 5th digit and along the entire digit and toes with normal ROM; No no cyanosis and no edema Psych: Appearance: grossly normal Affect: normal affect Attitude: cooperative Thought process: Normal thought process present Course Course Course Narrative: 1. Acute, nondisplaced fracture of the proximal phalanx of the fifth digit. Postop shoe, use walker, counseled rice, follow-up with Orthopedics due to metatarsal resection and prior foot surgery Discharge Plan Discharge Clinical Impression: Fracture of toe of right foot Qualifiers: Encounter type: initial encounter Toe: lesser toe Fracture type: closed Phalanx: unspecified phalanx Fracture alignment: nondisplaced Qualified Code(s): S92.504A - Nondisplaced unspecified fracture of right lesser toe(s), initial encounter for closed fracture Patient Disposition: Home, Self-Care Instructions: Toe Fracture (ED), R.I.C.E. Treatment (ED) Additional Instructions: Please call orthopedics at [phone] Please wear the postop shoe until you are seen by orthopedics. Please rest, ice , and elevate your foot. Please alternate Tylenol and ibuprofen for pain. Take 1 or the other every 4 hours. For example, at midnight take 1000 mg of Tylenol, then at 4:00 a.m. take 800 mg ibuprofen, at 8:00 a.m. take 1000 mg of Tylenol, at noon take 800 mg of ibuprofen, at 4:00 p.m. take 1000 mg of Tylenol, at 8:00 p.m. take 800 mg of ibuprofen. Do not exceed 3000 mg of Tylenol in 24 hours. This method is proven to be as effective as an opioid for pain control. Prescriptions: No Action furosemide 40 mg tablet 40 mg PO DAILY RF: 0 clonazepam 1 mg tablet 1 mg PO BID PRN (Reason: Anxiety) RF: 0 paroxetine HCl 20 mg tablet 20 mg PO DAILY RF: 0 zolpidem 5 mg tablet 5 mg PO BEDTIME PRN (Reason: Sleep) RF: 0 calcium carbonate-vitamin D3 [Oystercal-D] 500 mg(1,250mg) -400 unit tablet 1 tab PO BID RF: 0 zinc 50 mg Tablet 50 mg PO DAILY RF: 0 multivitamin Tablet 1 tab PO DAILY RF: 0 metoprolol succinate 50 mg tablet extended release 24 hr 100 mg PO DAILY RF: 0 melatonin 5 mg capsule 5 mg PO BEDTIME PRN (Reason: Sleep) RF: 0 apixaban 5 mg tablet 5 mg PO BID RF: 0 atorvastatin 10 mg tablet 10 mg PO DAILY RF: 0 ferrous sulfate 325 mg (65 mg iron) tablet 325 mg PO DAILY RF: 0 cholecalciferol (vitamin D3) 10 mcg (400 unit) capsule 10 mcg PO DAILY RF: 0 Prolia 60 mg/mL syringe 60 mg subcut [id number] Qty: 1 RF: 1 (DME) Wheelchair See Rx Instructions .ROUTE .MEDSUPPLY Qty: 1 RF: 0 Referrals: Mildred Ruiz MD [Physician] - 2 days (right fifth toe fracture, hx metatarsal resection) Stand Alone Forms: Work/School Release Interventions: ED Discharge Assessment Last Done: 07/05/21 11:39 Discharge Date/Time: 07/05/21 11:40
[2021-07-05] MEDS: oxyCODONE HCl Immed Release 5 MG TABLET PO (09:19)
== END 2021-07-05 11:40 | disposition home or self-care (01) ==
PROVIDERS: Emergency Provider Student in an Organized Health Care Education/Training Program; PCP Internal Medicine
DX: S92.504A Nondisplaced unspecified fracture of right lesser toe(s), initial encounter for closed fracture (principal); M79.671 Pain in right foot; Y29.XXXA Contact with blunt object, undetermined intent, initial encounter; Y93.9 Activity, unspecified; Y92.009 Unspecified place in unspecified non-institutional (private) residence as the place of occurrence of the external cause; Y99.9 Unspecified external cause status; Z79.899 Other long term (current) drug therapy; F17.210 Nicotine dependence, cigarettes, uncomplicated; Z71.6 Tobacco abuse counseling
CPT/HCPCS: 73660; 99283; 99284

== ENCOUNTER 2021-08-16 13:45 | Outpatient (REF) | payer MEDICARE, SELFPAY | END 2021-08-16 13:46 | disposition home or self-care (01) | LOC: HO.LAB 13:45 | PROVIDERS: Visit Provider Internal Medicine | DX: Z20.822 Contact with and (suspected) exposure to COVID-19 (principal) | CPT/HCPCS: C9803; U0003; U0005 ==

== ENCOUNTER 2021-10-29 20:06 | Inpatient (IN) | payer MEDICARE, SELFPAY ==
--- NOTE | ~2021-10-29 | XR_ITS ---
EXAMINATION: XR CHEST CLINICAL INFORMATION: Shortness of breath. COMPARISON: Chest radiograph dated from 08/28/2020. TECHNIQUE: AP view of the chest was obtained. FINDINGS: Stable appearance of the cardiomediastinal silhouette. Left-sided pacer with leads in unchanged positioning. EKG wires overlie the patient. Questionable increase haziness in the periphery of the lungs, more noticeable in the left lung. No pleural effusion or pneumothorax. No acute osseous findings. XR/XR chest 1V IMPRESSION: Questionable hazy airspace opacities in the periphery of the lungs which could potentially be artifactual and related with shadowing from the soft tissues. Recommend clinical correlation for the presence of an atypical infectious or inflammatory process.
--- NOTE | ~2021-10-29 | XR_ITS ---
EXAMINATION: XR ABDOMEN KUB CLINICAL INDICATION: Abdominal discomfort COMPARISON: None TECHNIQUE: AP view of the abdomen. FINDINGS: Gas is seen within multiple loops of small and large bowel without disproportionate dilation to suggest obstruction. Mild to moderate volume of stool is noted. No gross evidence for free air, though assessment for this is limited with supine positioning. Large hiatal hernia noted. No acute osseous findings are seen. Two screws noted in the proximal right femur. XR/XR KUB IMPRESSION: Nonobstructive bowel gas pattern.
[2021-10-29 20:18] VITALS: BP 141/50; BP 152/104; PULSE 111; PULSE 71; RESP 20; TEMP 39.2; O2SAT 97; O2SAT 99; BMI 38.0
--- NOTE | 2021-10-29 20:27 | ECG_ITS ---
Test Reason : SOB Blood Pressure : / mmHG Vent. Rate : 071 BPM Atrial Rate : 072 BPM P-R Int : 000 ms QRS Dur : 154 ms QT Int : 428 ms P-R-T Axes : 000 -37 -78 degrees QTc Int : 465 ms Ventricular-paced rhythm Abnormal ECG When compared with ECG of 28-AUG-2020 07:40, No significant change was found Referred By: Katiuska Villeda Electronically Signed By:Uzair Chau
--- NOTE | 2021-10-29 20:27 | ED_ITS ---
HPI - SOB/Dyspnea General Chief Complaint: Dyspnea Stated Complaint: Diff Breathing Source: patient and EMS Mode of arrival: EMS Limitations: no limitations History of Present Illness HPI Narrative: 70-year-old female presents via EMS for shortness of breath, fever, and hypoxia. MD elicited complaint: shortness of breath and chest pain Pertinent past history: COPD Onset (ago): day(s) (1) Timing: constant Severity: moderate Exacerbating factors: exertion, movement, coughing, talking and deep breaths Relieving factors: nothing Known history of: COPD Associated symptoms: chest pain, fever, cough, wheezing and orthopnea Treatment prior to arrival: oxygen Related Data Home oxygen amount: 2 liters Home Medications Medication Instructions Recorded Confirmed apixaban 5 mg tablet 5 mg PO BID 07/21/20 10/29/21 atorvastatin 10 mg tablet 10 mg PO DAILY 07/21/20 10/29/21 cholecalciferol (vitamin D3) 10 10 mcg PO DAILY 07/21/20 10/29/21 mcg (400 unit) capsule ferrous sulfate 325 mg (65 mg 325 mg PO DAILY 07/21/20 10/29/21 iron) tablet melatonin 5 mg capsule 5 mg PO BEDTIME PRN 07/21/20 10/29/21 metoprolol succinate 50 mg 100 mg PO DAILY 07/21/20 10/29/21 tablet,extended release 24 hr multivitamin 1 tab PO DAILY 07/21/20 10/29/21 calcium carbonate 500 mg-vitamin 1 tab PO BID 08/28/20 10/29/21 D3 10 mcg (400 unit) tablet (Oystercal-D) clonazepam 1 mg tablet 1 mg PO BID PRN 08/28/20 10/29/21 furosemide 40 mg tablet 40 mg PO DAILY 08/28/20 10/29/21 paroxetine HCl 20 mg tablet 20 mg PO DAILY 08/28/20 10/29/21 zinc 50 mg tablet 50 mg PO DAILY 08/28/20 10/29/21 zolpidem 5 mg tablet 5 mg PO BEDTIME PRN 08/28/20 10/29/21 albuterol sulfate 90 mcg/actuation 2 puff INHALATION Q4H PRN 10/29/21 10/29/21 aerosol inhaler (Ventolin HFA) Previous Rx's Medication Instructions Recorded Wheelchair #1 ea 10/06/20 denosumab 60 mg/mL subcutaneous 60 mg SUBCUT [id number] #1 ml 05/07/21 syringe (Prolia) Allergies Allergy/AdvReac Type Severity Reaction Status Date / Time Sulfa (Sulfonamide AdvReac Intermediate VOMITING Verified 05/07/21 08:12 Antibiotics) [SULFA(SULFONAMIDE ANTIBIOTICS)] Review of Systems Review of Systems: Constitutional: No Weight loss, positive Fever, No Chills, No Night Sweats, positive Fatigue, No Malaise ENT/Mouth: No Hearing loss, No Ear Pain, No Nasal Congestion, No Sinus Pain, No Hoarseness, No sore throat, No Rhinorrhea, No Swallowing Difficulty Eyes: No Eye Pain, No Swelling, No Redness, No Foreign Body, No Discharge, No Vision Changes Cardiovascular: Positive Chest Pain, positive SOB, positive Dyspnea on Exertion, positive Orthopnea, No Edema, No Palpitations Respiratory: Positive Cough, No Sputum, positive Wheezing, No Smoke Exposure, positive Dyspnea Gastrointestinal: pos Nausea, No Vomiting, No Diarrhea, No abdominal Pain, No Hematochezia, No Melena Genitourinary: No irregular bleeding, No Dysuria, No Urinary Frequency, No Hematuria, No Urinary Incontinence, No Urgency, No Flank Pain, No Urinary Flow Changes, No Hesitancy Musculoskeletal: No joint pain, No Myalgias, No Joint Swelling Skin: No Skin Lesions, No rash Neuro: No Weakness, No Numbness, No Paresthesias, No Loss of Consciousness, No Dizziness, No Headache Psych: No Anxiety/Panic, No Depression, No SI/HI/AH/VH Heme/Lymph: No Bruising, No Bleeding,No Lymphadenopathy Endocrine: No Polyuria, No Polydipsia, No Temperature Intolerance Yes all other systems are reviewed and are negative [facility] Past Medical History Attestation statement: The following information was validated with the patient. Source: old records reviewed Medical History Afib Anxiety Aortic stenosis Asthma Closed right hip fracture Depression Fracture of hip GERD (gastroesophageal reflux disease) Myocardial infarction Normocytic anemia Osteoporosis Pacemaker Surgical History H/O: hysterectomy Status post right knee replacement Social History Social History Household Members: Family Housing: Apartment Do you presently have visiting nurse or other home services: No Alcohol intake: never Cigarette Packs Per Day: 0.25 Cigarettes Per Day: 4 Years Smoked: 55 Advance Directives: Yes Advance Directives on File: Yes Advance Directives Date on File: 08/28/20 service: No Current occupational status: retired Physical Exam Vital Signs: Vital Signs: Last Vital Signs Temp 98.6 F 10/29/21 21:56 Pulse 71 10/29/21 21:56 Resp 17 10/29/21 21:56 BP 135/48 L 10/29/21 21:56 Pulse Ox 95 10/29/21 21:56 Oxygen Flow Rate 3 10/29/21 20:18 BMI result Body Mass Index 38.0 Appearance: Alert. Oriented X3. Moderate respiratory distress. Able to speak in short sentences. Eyes: Pupils equal, round and reactive to light. Sclera nonicteric. ENT: Pharynx normal. Moist mucous membranes. Neck: Normal inspection. Neck supple. CVS: Normal heart rate and rhythm. Pulses normal. Respiratory: Moderate respiratory distress. Decreased air flow to all lobes, inspiratory-expiratory wheezing noted. Abdomen: Soft and nontender. Obese. Skin: Skin warm and dry. Normal skin color. Normal skin turgor. Extremities: No lower extremity edema. Moves all extremities against resistance. Neuro: No motor deficit. No sensory deficit. Cranial nerves 2-12 intact Course Course Course Narrative: 70-year-old female presents via EMS for shortness of breath. It was noted that she was hypoxic at 85% on 2 L of O2 nasal cannula, EMS then placed her on non- rebreather which increased her O2 sat to 99%. Patient does have a known history of COPD, is not vaccinated, was COVID positive back on 08/16/2021. Patient is febrile at 102.5 oral. This is most likely viral, will treat with ceftriaxone for pneumonia, obtain cultures, labs, we will give gentle fluid resuscitation at 1 L. should labs indicate sepsis we will amend our plan at that time. Patient on Eliquis for AFib. Patient is also ventricularly paced. 21:32 COVID test is negative, white count 23, lactic 2.1 will resuscitate with 2 L of fluid to make ideal body weight, patient is morbidly obese, will add azithromycin. Troponin is negative. 21:44 discussion with hospitalist, plan of care is to admit for COPD exacerbation, pneumonia and hypoxia. Consultations Consultation #1: [place] Time: 21:45 MDM - SOB/Dyspnea MDM Narrative Medical decision making narrative: Viral syndrome Differential Diagnosis Differential diagnosis: Likely acute exacerbation of chronic obstructive airways disease, congestive heart failure, pneumonia, asthma with exacerbation and anemia Medical Records Attestation: I reviewed the patient's medical records. Lab Data Attestation: I reviewed the patient's lab results. Result diagrams: 10/29/21 20:54 10/29/21 20:53 Labs: Lab Results 10/29/21 10/29/21 10/29/21 Range/Units 20:53 20:53 20:53 WBC (4.8-10.8) X10*3/uL RBC (4.20-5.50) X10*6/uL Hgb (12.0-16.0) g/dl Hct (37.0-47.0) % MCV (80.0-98.0) fL MCH (27.0-33.0) pg MCHC (31.0-35.0) g/dl RDW (11.0-16.0) % Plt Count (160-400) X10*3/uL MPV (9.4-12.3) fL Immature Gran % (Auto) (0.0-0.4) % Neut % (Auto) (45-73) % Lymph % (Auto) (20-40) % Sunflower % (Auto) (2-11) % Eos % (Auto) (0-4) % Baso % (Auto) (0-2) % Lymph # (Auto) (1.2-4.9) X10*3/uL Sunflower # (Auto) (0.1-1.2) X10*3/uL Eos # (Auto) (0.0-0.4) X10*3/uL Baso # (Auto) (0.0-0.2) X10*3/uL Abs Immat Gran (auto) (0.00-0.03) X10*3/uL Absolute Neuts (auto) (2.0-8.3) x10*3/uL Absolute Nucleated RBC (0.0-0.012) X10*3/uL Nucleated RBC % (auto) (0.0-0.2) /100WBC Smear Tech's Comments PT 14.8 H (9.9-13.0) SEC INR 1.3 H (0.9-1.1) APTT 42.9 H (24.1-38.0) SEC Sodium 138 (135-145) mmol/L Potassium 4.6 (3.3-5.1) mmol/L Chloride 101 (96-108) mmol/L Carbon Dioxide 26 (22-29) mmol/L Anion Gap 16 (12-20) BUN 15 (9-16) mg/dL Creatinine 0.80 (0.5-1.4) mg/dL Estim Creat Clear Calc 88.1 Estimated GFR > 60 Random Glucose 137 H (60-115) mg/dL Lactic Acid (0.5-2.0) mmol/L Calcium 9.5 (8.4-10.2) mg/dL Magnesium 1.8 (1.6-2.6) mg/dL Total Bilirubin 0.3 (0.0-1.0) mg/dL Direct Bilirubin 0.2 (0.0-0.5) mg/dL AST 24 D (5-31) U/L ALT 17 (0-31) U/L Alkaline Phosphatase 103 (39-117) U/L Troponin I High Sens (<3.5-17.0) ng/L B-Natriuretic Peptide (<100) pg/mL Total Protein 7.6 (6.5-8.0) g/dL Albumin 4.0 (3.5-5.0) g/dL Lipase 13 (8-78) U/L COVID-19 (ROBERT) (Negative) COVID-19 Clin Com 10/29/21 10/29/21 10/29/21 Range/Units 20:53 20:53 20:54 WBC (4.8-10.8) X10*3/uL RBC (4.20-5.50) X10*6/uL Hgb (12.0-16.0) g/dl Hct (37.0-47.0) % MCV (80.0-98.0) fL MCH (27.0-33.0) pg MCHC (31.0-35.0) g/dl RDW (11.0-16.0) % Plt Count (160-400) X10*3/uL MPV (9.4-12.3) fL Immature Gran % (Auto) (0.0-0.4) % Neut % (Auto) (45-73) % Lymph % (Auto) (20-40) % Sunflower % (Auto) (2-11) % Eos % (Auto) (0-4) % Baso % (Auto) (0-2) % Lymph # (Auto) (1.2-4.9) X10*3/uL Sunflower # (Auto) (0.1-1.2) X10*3/uL Eos # (Auto) (0.0-0.4) X10*3/uL Baso # (Auto) (0.0-0.2) X10*3/uL Abs Immat Gran (auto) (0.00-0.03) X10*3/uL Absolute Neuts (auto) (2.0-8.3) x10*3/uL Absolute Nucleated RBC (0.0-0.012) X10*3/uL Nucleated RBC % (auto) (0.0-0.2) /100WBC Smear Tech's Comments PT (9.9-13.0) SEC INR (0.9-1.1) APTT (24.1-38.0) SEC Sodium (135-145) mmol/L Potassium (3.3-5.1) mmol/L Chloride (96-108) mmol/L Carbon Dioxide (22-29) mmol/L Anion Gap (12-20) BUN (9-16) mg/dL Creatinine (0.5-1.4) mg/dL Estim Creat Clear Calc Estimated GFR Random Glucose (60-115) mg/dL Lactic Acid 2.1 H* (0.5-2.0) mmol/L Calcium (8.4-10.2) mg/dL Magnesium (1.6-2.6) mg/dL Total Bilirubin (0.0-1.0) mg/dL Direct Bilirubin (0.0-0.5) mg/dL AST (5-31) U/L ALT (0-31) U/L Alkaline Phosphatase (39-117) U/L Troponin I High Sens 4.3 (<3.5-17.0) ng/L B-Natriuretic Peptide 122 H (<100) pg/mL Total Protein (6.5-8.0) g/dL Albumin (3.5-5.0) g/dL Lipase (8-78) U/L COVID-19 (ROBERT) Negative (Negative) COVID-19 Clin Com See Note 10/29/21 Range/Units 20:54 WBC 23.3 H (4.8-10.8) X10*3/uL RBC 4.79 (4.20-5.50) X10*6/uL Hgb 14.0 (12.0-16.0) g/dl Hct 42.1 (37.0-47.0) % MCV 87.9 (80.0-98.0) fL MCH 29.2 (27.0-33.0) pg MCHC 33.3 (31.0-35.0) g/dl RDW 12.8 (11.0-16.0) % Plt Count 332 (160-400) X10*3/uL MPV 9.5 (9.4-12.3) fL Immature Gran % (Auto) 0.6 H (0.0-0.4) % Neut % (Auto) 89.4 H (45-73) % Lymph % (Auto) 6.3 L (20-40) % Sunflower % (Auto) 3.3 (2-11) % Eos % (Auto) 0.2 (0-4) % Baso % (Auto) 0.2 (0-2) % Lymph # (Auto) 1.5 (1.2-4.9) X10*3/uL Sunflower # (Auto) 0.8 (0.1-1.2) X10*3/uL Eos # (Auto) 0.0 (0.0-0.4) X10*3/uL Baso # (Auto) 0.0 (0.0-0.2) X10*3/uL Abs Immat Gran (auto) 0.13 H (0.00-0.03) X10*3/uL Absolute Neuts (auto) 20.8 H (2.0-8.3) x10*3/uL Absolute Nucleated RBC 0.000 (0.0-0.012) X10*3/uL Nucleated RBC % (auto) 0.0 (0.0-0.2) /100WBC Smear Tech's Comments VERIFIED PT (9.9-13.0) SEC INR (0.9-1.1) APTT (24.1-38.0) SEC Sodium (135-145) mmol/L Potassium (3.3-5.1) mmol/L Chloride (96-108) mmol/L Carbon Dioxide (22-29) mmol/L Anion Gap (12-20) BUN (9-16) mg/dL Creatinine (0.5-1.4) mg/dL Estim Creat Clear Calc Estimated GFR Random Glucose (60-115) mg/dL Lactic Acid (0.5-2.0) mmol/L Calcium (8.4-10.2) mg/dL Magnesium (1.6-2.6) mg/dL Total Bilirubin (0.0-1.0) mg/dL Direct Bilirubin (0.0-0.5) mg/dL AST (5-31) U/L ALT (0-31) U/L Alkaline Phosphatase (39-117) U/L Troponin I High Sens (<3.5-17.0) ng/L B-Natriuretic Peptide (<100) pg/mL Total Protein (6.5-8.0) g/dL Albumin (3.5-5.0) g/dL Lipase (8-78) U/L COVID-19 (ROBERT) (Negative) COVID-19 Clin Com Imaging Data Chest x-ray: Attestation: I personally reviewed and interpreted this imaging study as follows: Radiologist's impression: EXAMINATION: XR CHEST CLINICAL INFORMATION: Shortness of breath. COMPARISON: Chest radiograph dated from 08/28/2020. TECHNIQUE: AP view of the chest was obtained. FINDINGS: Stable appearance of the cardiomediastinal silhouette. Left-sided pacer with leads in unchanged positioning. EKG wires overlie the patient. Questionable increase haziness in the periphery of the lungs, more noticeable in the left lung. No pleural effusion or pneumothorax. No acute osseous findings. XR/XR chest 1V IMPRESSION: Questionable hazy airspace opacities in the periphery of the lungs which could potentially be artifactual and related with shadowing from the soft tissues. Recommend clinical correlation for the presence of an atypical infectious or inflammatory process. ECG Data Attestation: I personally reviewed and interpreted this ECG as follows: ECG interpretation date: 10/29/21 ECG interpretation time: 21:10 Prior ECG tracings: available for review Interpretation: Vent. rate 71 BPM ID interval * ms QRS duration 154 ms QT/QTc 428/465 ms P-R-T axes * -37 -78 Ventricular-paced rhythm Abnormal ECG When compared with ECG of 28-AUG-2020 07:40, No significant change was found Pacemaker function: normal pacer function Critical Care Time Critical Care Time Critical Care Time: Yes Total Critical Care Time: 60 Attestation: I have personally provided critical care time exclusive of time spent on separately billable procedures. Time includes review of laboratory data, radiology results, discussion with consultants, and monitoring for potential decompensation. Interventions were performed as documented. Discharge Plan Discharge Clinical Impression: Acute exacerbation of chronic obstructive airways disease, Pneumonia, Hypoxia Patient Disposition: Admitted As Inpatient
[2021-10-29] MEDS: Albuterol Sulfate (0.083%) 2.5 MG/3 ML VIAL.NEB 10 MG INHALE (20:43)
[2021-10-29 20:44] VITALS: PULSE 69; RESP 29; O2SAT 96
[2021-10-29 21:01] LABS: Basophils Percent Auto 0.2 % (0-2); Eosinophils Percent Auto 0.2 % (0-4); Hematocrit 42.1 % (37.0-47.0); Imm Gran Abs Auto 0.13 X10*3/uL (0.00-0.03); Imm Gran Pct Auto 0.6 % (0.0-0.4); Lymphocytes Absolute Auto 1.5 X10*3/uL (1.2-4.9); Lymphocytes Percent Auto 6.3 % (20-40); MANUAL DIFF FLAG SCAN; Mean Corpuscular HGB Conc 33.3 g/dl (31.0-35.0); Mean Corpuscular Hemoglobin 29.2 pg (27.0-33.0); Mean Corpuscular Volume 87.9 fL (80.0-98.0); Mean Platelet Volume 9.5 fL (9.4-12.3); Monocytes Absolute Auto 0.8 X10*3/uL (0.1-1.2); Monocytes Percent Auto 3.3 % (2-11); Neutrophils Absolute Auto 20.8 x10*3/uL (2.0-8.3); Neutrophils Percent Auto 89.4 % (45-73); Platelet Count 332 X10*3/uL (160-400); Red Blood Count 4.79 X10*6/uL (4.20-5.50); Red Cell Distribution Width 12.8 % (11.0-16.0); SCAN SMEAR FLAG 1; White Blood Count 23.3 X10*3/uL (4.8-10.8)
[2021-10-29] MEDS: methylPREDNISolone Sod Succ 125 MG/2 ML VIAL IVPUSH (21:01)
[2021-10-29] MEDS: cefTRIAXone sodium 1 GM in 0.9 % Sodium Chloride 50 ML IV (21:01)
[2021-10-29] MEDS: Acetaminophen 325 MG TABLET 650 MG PO (21:02)
[2021-10-29 21:09] LABS: INTERNATIONAL NORM RATIO 1.3 (0.9-1.1); Prothrombin Time 14.8 SEC (9.9-13.0)
[2021-10-29 21:12] LABS: Partial Thromboplastin Time 42.9 SEC (24.1-38.0)
[2021-10-29 21:19] LABS: COVID-19 Test Negative (Negative)
[2021-10-29 21:19] LABS: Alanine Aminotransferase 17 U/L (0-31); Alkaline Phosphatase 103 U/L (39-117); Anion Gap 16 (12-20); Aspartate Amino Transferase 24 U/L (5-31); Bilirubin Direct 0.2 mg/dL (0.0-0.5); Bilirubin Total 0.3 mg/dL (0.0-1.0); Blood Urea Nitrogen 15 mg/dL (9-16); Calcium 9.5 mg/dL (8.4-10.2); Carbon Dioxide 26 mmol/L (22-29); Chloride 101 mmol/L (96-108); Creatinine Clr Calc Pharmacy 88.1; Estimated Glomerular Filt Rate > 60; Glucose Random 137 mg/dL (60-115); Lipase 13 U/L (8-78); Magnesium 1.8 mg/dL (1.6-2.6); Potassium 4.6 mmol/L (3.3-5.1); Sodium 138 mmol/L (135-145); Total Protein 7.6 g/dL (6.5-8.0)
[2021-10-29 21:21] LABS: Troponin-I High Sensitivity 4.3 ng/L (<3.5-17.0)
[2021-10-29 21:23] LABS: Lactic Acid 2.1 mmol/L (0.5-2.0)
[2021-10-29 21:26] LABS: SLIDE REVIEW VERIFIED
[2021-10-29 21:47] LABS: B Type Natriuretic Peptide 122 pg/mL (<100)
[2021-10-29] MEDS: 0.9 % Sodium Chloride 1,000 ML 999 ML IVCONT ×2 (21:48)
[2021-10-29] MEDS: Azithromycin 500 MG TABLET PO (21:49)
[2021-10-29 21:56] VITALS: BP 135/48; PULSE 71; RESP 17; TEMP 37; O2SAT 95
--- NOTE | 2021-10-29 22:51 | P.HPHOSP_ITS ---
History of Present Illness Date of Service: 10/29/21 Chief Complaint: SOB This 70-year-old female with past medical history of AFib, COPD, hyperlipidemia, anxiety and depression, who presents to the hospital with complaints of shortness of breath, cough, sputum production. Patient reports that her symptoms started 3-4 days ago, progressively worsening, associated with chest pain. She describes the chest pain as tight, stabbing midsternal pain, nonradiating, constant, no alleviating factors. Patient denies having any palpitations. No fever or chills. On arrival of EMS patient was found to be hypoxic satting in the mid 80s. Patient is complaining of diffuse abdominal pain, denies any nausea vomiting d iarrhea constipation no urinary symptoms. She denies any lower extremity edema. No orthopnea or PND. All other review of system negative on arrival to the ED patient found to be hemodynamically stable with a temp of 102.5 degrees Labs are significant for WBC of 23.3 lactic acid of 2.1, BNP of 122, UA positive for nitrites, leukocyte Estrace and WBC. Chest x-ray shows questionable hazy airspace opacities in the periphery of the lungs Patient will be admitted for further management Review of Systems Review of Systems: Yes all other systems are reviewed and are negative [facility] Medical History Afib Anxiety Aortic stenosis Asthma Closed right hip fracture Depression Fracture of hip GERD (gastroesophageal reflux disease) Myocardial infarction Normocytic anemia Osteoporosis Pacemaker Family History (Updated 10/30/21 @ 06:39 by Kelly Metz MD) Other No family history of coronary artery disease Surgical History H/O: hysterectomy Status post right knee replacement Social History Household Members: Family Housing: Apartment Do you presently have visiting nurse or other home services: No Alcohol intake: never Cigarette Packs Per Day: 0.25 Cigarettes Per Day: 4 Years Smoked: 55 Advance Directives: Yes Advance Directives on File: Yes Advance Directives Date on File: 08/28/20 service: No Current occupational status: retired Meds Allergies Allergy/AdvReac Type Severity Reaction Status Date / Time tramadol Allergy Vomiting Verified 10/29/21 23:19 Sulfa (Sulfonamide AdvReac Intermediate VOMITING Verified 05/07/21 08:12 Antibiotics) [SULFA(SULFONAMIDE ANTIBIOTICS)] Active Medications: Current Medications Acetaminophen (Acetaminophen 325 Mg Tablet) 650 mg PO Q6H PRN PRN Reason: Pain, Mild (Pain Scale 1-3) Albuterol/Ipratropium (Albuterol/Iprat 2.5/0.5mg 3 Ml Ampul.Neb) 3 ml INHALE RQ4H PRN PRN Reason: Shortness of Breath/Wheezing Albuterol/Ipratropium (Albuterol/Iprat 2.5/0.5mg 3 Ml Ampul.Neb) 3 ml INHALE RQ4H WHILE AWAKE RON Docusate Sodium (Docusate Sodium 100 Mg Capsule) 100 mg PO DAILY PRN PRN Reason: Constipation Ceftriaxone Sodium 1 gm/ (Sodium Chloride) 50 mls @ 100 mls/hr IV Q24H RON Azithromycin 500 mg/ Sodium (Chloride) 250 mls @ 125 mls/hr IV Q24H RON Methylprednisolone Sodium Succinate (Methylprednisolone Sod Succ 40 Mg/Ml Vial) 40 mg IVPUSH Q12H RON Ondansetron HCl (Ondansetron Hcl 4 Mg/2 Ml Vial) 4 mg IVPUSH Q8H PRN PRN Reason: Nausea and Vomiting Sodium Chloride (0.9 % Sodium Chloride Flush 3 Ml Syringe) 3 ml IVFLUSH QSHIFT RON Tramadol HCl (Tramadol Hcl 50 Mg Tablet) 50 mg PO ONCE ONE Stop: 10/29/21 22:44 Home Medications Medication Instructions Recorded Confirmed Last Taken Type apixaban 5 mg tablet 5 mg PO BID 07/21/20 10/29/21 08/27/20 History atorvastatin 10 mg tablet 10 mg PO DAILY 07/21/20 10/29/21 08/27/20 History cholecalciferol (vitamin D3) 10 10 mcg PO DAILY 07/21/20 10/29/21 08/27/20 History mcg (400 unit) capsule ferrous sulfate 325 mg (65 mg 325 mg PO DAILY 07/21/20 10/29/21 08/27/20 History iron) tablet melatonin 5 mg capsule 5 mg PO BEDTIME PRN 07/21/20 10/29/21 08/27/20 History metoprolol succinate 50 mg 100 mg PO DAILY 07/21/20 10/29/21 08/27/20 History tablet,extended release 24 hr multivitamin 1 tab PO DAILY 07/21/20 10/29/21 08/27/20 History calcium carbonate 500 mg-vitamin 1 tab PO BID 08/28/20 10/29/21 08/27/20 History D3 10 mcg (400 unit) tablet (Oystercal-D) clonazepam 1 mg tablet 1 mg PO BID PRN 08/28/20 10/29/21 08/27/20 History furosemide 40 mg tablet 40 mg PO DAILY 08/28/20 10/29/21 08/27/20 History paroxetine HCl 20 mg tablet 20 mg PO DAILY 08/28/20 10/29/21 08/27/20 History zinc 50 mg tablet 50 mg PO DAILY 08/28/20 10/29/21 08/27/20 History zolpidem 5 mg tablet 5 mg PO BEDTIME PRN 08/28/20 10/29/21 Unknown History albuterol sulfate 90 mcg/actuation 2 puff INHALATION Q4H PRN 10/29/21 10/29/21 Unknown History aerosol inhaler (Ventolin HFA) Physical Exam Vital Signs and Narrative: Vital Signs: Last Vital Signs Temp 98.6 F 10/29/21 21:56 Pulse 71 10/29/21 21:56 Resp 17 10/29/21 21:56 BP 135/48 L 10/29/21 21:56 Pulse Ox 95 10/29/21 21:56 Oxygen Flow Rate 3 10/29/21 20:18 BMI result Body Mass Index 38.0 Const: General: cooperative and no acute distress Orientation/consciousness: patient oriented x3 Eyes: General: appearance normal, both eyes and all related structures Resp: Other: Distant breath sounds Effort & Inspection: normal respiratory effort Cardio: Rate: regular rate Rhythm: regular rhythm GI: Palpation (GI): Soft to palpation Auscultation: normal bowel sounds Skin: General skin exam: no rashes or lesions noted Neuro: General: patient oriented x3 Cognition (Neuro): normal cognition Extrem: General: Yes normal to inspection and Yes no pedal edema Results Labs CBC and Chem 7: 10/29/21 20:54 10/29/21 20:53 Labs: Laboratory Results - last 24 hr 10/29/21 10/29/21 10/29/21 20:53 20:53 20:53 MCV MCH MCHC RDW Plt Count MPV Immature Gran % (Auto) Neut % (Auto) Lymph % (Auto) [place] % (Auto) Eos % (Auto) Baso % (Auto) Lymph # (Auto) [place] # (Auto) Eos # (Auto) Baso # (Auto) Abs Immat Gran (auto) Absolute Neuts (auto) Absolute Nucleated RBC Nucleated RBC % (auto) Smear Tech's Comments PT 14.8 H INR 1.3 H APTT 42.9 H Anion Gap 16 Estim Creat Clear Calc 88.1 Estimated GFR > 60 Random Glucose 137 H Lactic Acid Calcium 9.5 Magnesium 1.8 Total Bilirubin 0.3 Direct Bilirubin 0.2 AST 24 D ALT 17 Alkaline Phosphatase 103 B-Natriuretic Peptide Total Protein 7.6 Albumin 4.0 Lipase 13 COVID-19 (ROBERT) COVID-[place] 10/29/21 10/29/21 10/29/21 20:53 20:53 20:54 MCV MCH MCHC RDW Plt Count MPV Immature Gran % (Auto) Neut % (Auto) Lymph % (Auto) [place] % (Auto) Eos % (Auto) Baso % (Auto) Lymph # (Auto) [place] # (Auto) Eos # (Auto) Baso # (Auto) Abs Immat Gran (auto) Absolute Neuts (auto) Absolute Nucleated RBC Nucleated RBC % (auto) Smear Tech's Comments PT INR APTT Anion Gap Estim Creat Clear Calc Estimated GFR Random Glucose Lactic Acid 2.1 H* Calcium Magnesium Total Bilirubin Direct Bilirubin AST ALT Alkaline Phosphatase B-Natriuretic Peptide 122 H Total Protein Albumin Lipase COVID-19 (ROBERT) Negative COVID-19 Clin Com See Note 10/29/21 20:54 MCV 87.9 MCH 29.2 MCHC 33.3 RDW 12.8 Plt Count 332 MPV 9.5 Immature Gran % (Auto) 0.6 H Neut % (Auto) 89.4 H Lymph % (Auto) 6.3 L [place] % (Auto) 3.3 Eos % (Auto) 0.2 Baso % (Auto) 0.2 Lymph # (Auto) 1.5 [place] # (Auto) 0.8 Eos # (Auto) 0.0 Baso # (Auto) 0.0 Abs Immat Gran (auto) 0.13 H Absolute Neuts (auto) 20.8 H Absolute Nucleated RBC 0.000 Nucleated RBC % (auto) 0.0 Smear Tech's Comments VERIFIED PT INR APTT Anion Gap Estim Creat Clear Calc Estimated GFR Random Glucose Lactic Acid Calcium Magnesium Total Bilirubin Direct Bilirubin AST ALT Alkaline Phosphatase B-Natriuretic Peptide Total Protein Albumin Lipase COVID-19 (ROBERT) COVID-19 Clin Com Imaging Radiologist's Impressions: Impressions Chest X-Ray 10/29/21 21:02 IMPRESSION: Questionable hazy airspace opacities in the periphery of the lungs which could potentially be artifactual and related with shadowing from the soft tissues. Recommend clinical correlation for the presence of an atypical infectious or inflammatory process. Assessment and Plan (1) Sepsis: Status: Acute (2) Acute exacerbation of chronic obstructive airways disease: Status: Acute (3) Pneumonia: Status: Acute (4) Acute respiratory failure with hypoxia: Status: Acute Plan 70-year-old female with past medical history of COPD, AFib who presents to hospital with complaints of shortness of breath, cough, as well as sputum production found to have pneumonia # sepsis - 2/2 COPD exacerbation/pneumonia - will treat with IV antibiotics - Solu-Medrol, DuoNeb - follow cultures # acute hypoxic respiratory failure - likely acute secondary to COPD exacerbation versus pneumonia - patient does not use oxygen at baseline - found to have oxygen of made 80s on arrival of EMS - will treat with IV antibiotics, Solu-Medrol and breathing treatment - respiratory status # pneumonia - community-acquired - chest x-ray findings as above - COVID-19 negative - will treat with IV antibiotics - follow cultures # lactic acidosis - secondary to above - which treat with IV fluids - trend # AFib - continue apixaban, metoprolol # depression anxiety - continue mood medications DVT prophylaxis, apixaben Quality Stroke Does the patient have a stroke diagnosis?: No VTE Prior VTE?: No VTE Risk Level:: Medical - moderate - high VTE Device Contraindication: Treatment Not Indicated VTE Drug Contraindication: N/A - Med Ordered
[2021-10-29 22:57] LABS: Reflex Lactate? Lactic Acid Added
[2021-10-29] MEDS: Apixaban 5 MG TABLET PO (23:10)
--- NOTE | 2021-10-29 23:19 | PC.NURSE ---
Tramadol held as pt reports she thinks she has an allergy to it - Dr. Metz informed and med added to her allergy lis
[2021-10-29 23:46] VITALS: BP 105/60; PULSE 70; RESP 16; TEMP 36.9; O2SAT 94
[2021-10-30] VITALS (13 sets, daily range): BP systolic 95–119; BP diastolic 57–65; PULSE 69–75; RESP 14–20; TEMP 36.2–37.3; O2SAT 93–98
[2021-10-30 00:36] LABS: ~Lactic Acid-LAB USE ONLY 2.9 mmol/L (0.5-2.0)
[2021-10-30] MEDS: Ketorolac Tromethamine 15 MG/ML VIAL IVPUSH (01:14)
[2021-10-30 02:15] LABS: Reflex Lactate? 2 Y
[2021-10-30 03:19] LABS: ~Lactic Acid-LAB USE ONLY 2.5 mmol/L (0.5-2.0)
[2021-10-30 04:34] LABS: Appearance Urine CLOUDY; Color Urine YELLOW; Glucose Urine UA 100 MG/DL (NEG); Leukocyte Esterase Urine TRACE (NEG); Nitrite Urine POS (NEG); PH 5.5 (5.0-8.0); Specific Gravity - Urine >= 1.030 (1.005-1.025); UACC Culture Trigger YES; Urine Blood 1+ (NEG); Urine Ketones NEG (NEG); Urine Protein NEG (NEG-TRACE)
[2021-10-30 04:40] LABS: Bacteria Urine 3+ /LPF; Mucus Urine TRACE /LPF; RBC Urine 0-2 /HPF (0); Squamous Epithelial Cell Urine 3+ /LPF
[2021-10-30 07:33] LABS: Basophils Percent Auto 0.1 % (0-2); Hematocrit 36.9 % (37.0-47.0); Hemoglobin 12.2 g/dl (12.0-16.0); Imm Gran Abs Auto 0.12 X10*3/uL (0.00-0.03); Imm Gran Pct Auto 0.6 % (0.0-0.4); MANUAL DIFF FLAG SCAN; Mean Corpuscular HGB Conc 33.1 g/dl (31.0-35.0); Mean Corpuscular Volume 87.6 fL (80.0-98.0); Mean Platelet Volume 9.8 fL (9.4-12.3); Monocytes Absolute Auto 0.1 X10*3/uL (0.1-1.2); Monocytes Percent Auto 0.4 % (2-11); Neutrophils Percent Auto 93.9 % (45-73); Platelet Count 265 X10*3/uL (160-400); Red Blood Count 4.21 X10*6/uL (4.20-5.50); SCAN SMEAR FLAG 1; White Blood Count 20.2 X10*3/uL (4.8-10.8)
[2021-10-30 08:17] LABS: Anion Gap 13 (12-20); Blood Urea Nitrogen 19 mg/dL (9-16); Calcium 8.7 mg/dL (8.4-10.2); Carbon Dioxide 23 mmol/L (22-29); Chloride 105 mmol/L (96-108); Creatinine Clr Calc Pharmacy 90.4; Estimated Glomerular Filt Rate > 60; Glucose Random 195 mg/dL (60-115); Potassium 4.1 mmol/L (3.3-5.1); Sodium 137 mmol/L (135-145)
[2021-10-30 08:36] LABS: SLIDE REVIEW VERIFIED
[2021-10-30] MEDS: Albuterol/Iprat 2.5/0.5MG 3 ML AMPUL.NEB INHALE ×4 (08:46→20:23)
[2021-10-30] MEDS: Multivitamin TABLET 1 TAB PO (08:47)
[2021-10-30] MEDS: Ferrous Sulfate 324 MG TABLET.DR PO (08:47)
[2021-10-30] MEDS: Lactated Ringers 1,000 ML 100 ML IVCONT ×2 (08:47→18:44)
[2021-10-30] MEDS: Metoprolol Succinate ER 100 MG TAB.ER.24H PO (08:47)
[2021-10-30] MEDS: Atorvastatin Calcium 10 MG TABLET PO (08:47)
[2021-10-30] MEDS: methylPREDNISolone Sod Succ 40 MG/ML VIAL IVPUSH ×2 (08:47→22:06)
[2021-10-30] MEDS: Furosemide 40 MG TABLET PO (08:48)
[2021-10-30] MEDS: Calcium + Vitamin D 250 MG TABLET 500 MG PO ×2 (08:48→22:08)
[2021-10-30] MEDS: Apixaban 5 MG TABLET PO ×2 (08:48→22:08)
[2021-10-30] MEDS: 0.9 % Sodium Chloride Flush 3 ML SYRINGE IVFLUSH (08:49)
[2021-10-30] MEDS: Cholecalciferol (Vitamin D3) 10 MCG TABLET PO (10:38)
--- NOTE | 2021-10-30 11:41 | HO.PM.IMPN ---
Subjective Subjective Date of Service: 10/30/21 Interval History: No acute issues overnight Review of Systems Denies CP. SOB improved Denies N/V/D Physical Exam Vital Signs: Vital Signs: Last Vital Signs Temp 97.6 F 10/30/21 08:23 Pulse 70 10/30/21 10:33 Resp 14 10/30/21 10:33 BP 99/57 L 10/30/21 10:33 Pulse Ox 94 10/30/21 10:33 Oxygen Flow Rate 3 10/29/21 20:18 BMI result Body Mass Index 38.0 Const: Other: No acute distress Resp: Other: Left basilar crackles otherwise clear Cardio: Other: -S4 +s1/s2 -S3 MRG GI: Other: soft NABS x 4 quads Extrem: Other: no edema bilat Objective Data Active Medications Acetaminophen (Acetaminophen 325 Mg Tablet) 650 mg PO Q6H PRN PRN Reason: Pain, Mild (Pain Scale 1-3) Albuterol/Ipratropium (Albuterol/Iprat 2.5/0.5mg 3 Ml Ampul.Neb) 3 ml INHALE Q4H PRN PRN Reason: Shortness of Breath/Wheezing Albuterol/Ipratropium (Albuterol/Iprat 2.5/0.5mg 3 Ml Ampul.Neb) 3 ml INHALE RQ4H WHILE AWAKE [facility] Last Admin: 10/30/21 08:46 Dose: 3 ml Documented by: ELANA Apixaban (Apixaban 5 Mg Tablet) 5 mg PO BID [facility] Last Admin: 10/30/21 08:48 Dose: 5 mg Documented by: COURTNEY Atorvastatin Calcium (Atorvastatin Calcium 10 Mg Tablet) 10 mg PO DAILY [facility] Last Admin: 10/30/21 08:47 Dose: 10 mg Documented by: COURTNEY Calcium Carbonate/Cholecalciferol (Calcium + Vitamin D 250 Mg Tablet) 500 mg PO BID [facility] Last Admin: 10/30/21 08:48 Dose: 500 mg Documented by: COURTNEY Clonazepam (Clonazepam 1 Mg Tablet) 1 mg PO BID PRN PRN Reason: Anxiety Docusate Sodium (Docusate Sodium 100 Mg Capsule) 100 mg PO DAILY PRN PRN Reason: Constipation Ferrous Sulfate (Ferrous Sulfate 324 Mg Tablet.) 324 mg PO DAILY [facility] Last Admin: 10/30/21 08:47 Dose: 324 mg Documented by: COURTNEY Furosemide (Furosemide 40 Mg Tablet) 40 mg PO DAILY [facility]; Protocol Last Admin: 10/30/21 08:48 Dose: 40 mg Documented by: COURTNEY Ceftriaxone Sodium 1 gm/ (Sodium Chloride) 50 mls @ 100 mls/hr IV Q24H [facility] Azithromycin 500 mg/ Sodium (Chloride) 250 mls @ 125 mls/hr IV Q24H [facility] Lactated Ringer's (Lr) 1,000 mls @ 100 mls/hr IVCONT .Q10H [facility] Last Admin: 10/30/21 08:47 Dose: 100 mls/hr Documented by: COURTNEY Melatonin (Melatonin 3 Mg Tablet) 6 mg PO BEDTIME PRN PRN Reason: Sleep Methylprednisolone Sodium Succinate (Methylprednisolone Sod Succ 40 Mg/Ml Vial) 40 mg IVPUSH Q12H [facility] Last Admin: 10/30/21 08:47 Dose: 40 mg Documented by: COURTNEY Metoprolol Succinate (Metoprolol Succinate Er 100 Mg Tab.Er.24h) 100 mg PO DAILY [facility]; Protocol Last Admin: 10/30/21 08:47 Dose: 100 mg Documented by: COURTNEY Multivitamins/Vitamin C (Multivitamin Tablet) 1 tab PO DAILY [facility] Last Admin: 10/30/21 08:47 Dose: 1 tab Documented by: COURTNEY Ondansetron HCl (Ondansetron Hcl 4 Mg/2 Ml Vial) 4 mg IVPUSH Q8H PRN PRN Reason: Nausea and Vomiting Paroxetine HCl (Paroxetine Hcl 20 Mg Tablet) 20 mg PO DAILY [facility] Last Admin: 10/30/21 10:38 Dose: Not Given Documented by: COURTNEY Non-Admin Reason: Patient Refused Sodium Chloride (0.9 % Sodium Chloride Flush 3 Ml Syringe) 3 ml IVFLUSH QSHIFT [facility] Last Admin: 10/30/21 08:49 Dose: 3 ml Documented by: COURTNEY Vitamin D (Cholecalciferol (Vitamin D3) 10 Mcg Tablet) 10 mcg PO DAILY [facility] Last Admin: 10/30/21 10:38 Dose: 10 mcg Documented by: COURTNEY Zolpidem Tartrate (Zolpidem Tartrate 5 Mg Tablet) 5 mg PO BEDTIME PRN PRN Reason: Sleep Labs CBC & Chem 7: 10/30/21 07:22 10/30/21 07:22 Labs: Laboratory Results - last 24 hr 10/29/21 10/29/21 10/29/21 20:53 20:53 20:53 WBC MCV MCH MCHC RDW Plt Count MPV Immature Gran % (Auto) Neut % (Auto) Lymph % (Auto) [place] % (Auto) Eos % (Auto) Baso % (Auto) Lymph # (Auto) [place] # (Auto) Eos # (Auto) Baso # (Auto) Abs Immat Gran (auto) Absolute Neuts (auto) Absolute Nucleated RBC Nucleated RBC % (auto) Smear Tech's Comments PT 14.8 H INR 1.3 H APTT 42.9 H Anion Gap 16 Estim Creat Clear Calc 88.1 Estimated GFR > 60 Random Glucose 137 H Lactic Acid Lactic Acid F/U @ 2Hr Lactic Acid F/U @ 4Hr Calcium 9.5 Magnesium 1.8 Total Bilirubin 0.3 Direct Bilirubin 0.2 AST 24 D ALT 17 Alkaline Phosphatase 103 B-Natriuretic Peptide Total Protein 7.6 Albumin 4.0 Lipase 13 Urine Color Urine Appearance Urine pH Ur Specific [place] Urine Protein Urine Glucose (UA) Urine Ketones Urine Blood Urine Nitrite Ur Leukocyte Esterase Urine RBC Urine WBC Ur Squamous Epith Cells Urine Bacteria Urine Mucus COVID-19 ([facility]OBERT) COVID-19 Clin Com 10/29/21 10/29/21 10/29/21 20:53 20:53 20:54 WBC MCV MCH MCHC RDW Plt Count MPV Immature Gran % (Auto) Neut % (Auto) Lymph % (Auto) [place] % (Auto) Eos % (Auto) Baso % (Auto) Lymph # (Auto) [place] # (Auto) Eos # (Auto) Baso # (Auto) Abs Immat Gran (auto) Absolute Neuts (auto) Absolute Nucleated RBC Nucleated RBC % (auto) Smear Tech's Comments PT INR APTT Anion Gap Estim Creat Clear Calc Estimated GFR Random Glucose Lactic Acid 2.1 H* Lactic Acid F/U @ 2Hr Lactic Acid F/U @ 4Hr Calcium Magnesium Total Bilirubin Direct Bilirubin AST ALT Alkaline Phosphatase B-Natriuretic Peptide 122 H Total Protein Albumin Lipase Urine Color Urine Appearance Urine pH Ur Specific [place] Urine Protein Urine Glucose (UA) Urine Ketones Urine Blood Urine Nitrite Ur Leukocyte Esterase Urine RBC Urine WBC Ur Squamous Epith Cells Urine Bacteria Urine Mucus COVID-19 (ROBERT) Negative COVID-19 Clin Com See Note 10/29/21 10/30/21 10/30/21 20:54 00:06 02:51 WBC 23.3 H MCV 87.9 MCH 29.2 MCHC 33.3 RDW 12.8 Plt Count 332 MPV 9.5 Immature Gran % (Auto) 0.6 H Neut % (Auto) 89.4 H Lymph % (Auto) 6.3 L [place] % (Auto) 3.3 Eos % (Auto) 0.2 Baso % (Auto) 0.2 Lymph # (Auto) 1.5 [place] # (Auto) 0.8 Eos # (Auto) 0.0 Baso # (Auto) 0.0 Abs Immat Gran (auto) 0.13 H Absolute Neuts (auto) 20.8 H Absolute Nucleated RBC 0.000 Nucleated RBC % (auto) 0.0 Smear Tech's Comments VERIFIED PT INR APTT Anion Gap Estim Creat Clear Calc Estimated GFR Random Glucose Lactic Acid Lactic Acid F/U @ 2Hr 2.9 H* Lactic Acid F/U @ 4Hr 2.5 H* Calcium Magnesium Total Bilirubin Direct Bilirubin AST ALT Alkaline Phosphatase B-Natriuretic Peptide Total Protein Albumin Lipase Urine Color Urine Appearance Urine pH Ur Specific [place] Urine Protein Urine Glucose (UA) Urine Ketones Urine Blood Urine Nitrite Ur Leukocyte Esterase Urine RBC Urine WBC Ur Squamous Epith Cells Urine Bacteria Urine Mucus COVID-19 ([facility]OBERT) COVID-19 Clin Com 10/30/21 10/30/21 10/30/21 04:26 07:22 07:22 WBC 20.2 H MCV 87.6 MCH 29.0 MCHC 33.1 RDW 13.0 Plt Count 265 MPV 9.8 Immature Gran % (Auto) 0.6 H Neut % (Auto) 93.9 H Lymph % (Auto) 5.0 L [place] % (Auto) 0.4 L Eos % (Auto) 0.0 Baso % (Auto) 0.1 Lymph # (Auto) 1.0 L [place] # (Auto) 0.1 Eos # (Auto) 0.0 Baso # (Auto) 0.0 Abs Immat Gran (auto) 0.12 H Absolute Neuts (auto) 19.0 H Absolute Nucleated RBC 0.000 Nucleated RBC % (auto) 0.0 Smear Tech's Comments VERIFIED PT INR APTT Anion Gap 13 Estim Creat Clear Calc 90.4 Estimated GFR > 60 Random Glucose 195 H Lactic Acid Lactic Acid F/U @ 2Hr Lactic Acid F/U @ 4Hr Calcium 8.7 D Magnesium Total Bilirubin Direct Bilirubin AST ALT Alkaline Phosphatase B-Natriuretic Peptide Total Protein Albumin Lipase Urine Color YELLOW Urine Appearance CLOUDY Urine pH 5.5 Ur Specific [place] >= 1.030 H Urine Protein NEG Urine Glucose (UA) 100 H Urine Ketones NEG Urine Blood 1+ H Urine Nitrite POS H Ur Leukocyte Esterase TRACE H Urine RBC 0-2 Urine WBC 5-9 H Ur Squamous Epith Cells 3+ Urine Bacteria 3+ Urine Mucus TRACE COVID-19 ([facility]OBERT) COVID-19 Clin Com Assessment and Plan (1) Pneumonia: Status: Acute (2) Acute respiratory failure with hypoxia: Status: Acute (3) Afib: Status: Acute Plan 70-year-old female with past medical history of COPD, AFib who presents to hospital with complaints of shortness of breath, cough, as well as sputum production found to have pneumonia 1.COPD exacerbation/pneumonia(sepsis resolved) - IV CTX/Azithro (2) - Solu-Medrol q 6 hrs/duonebs - follow cultures 2.Acute hypoxic respiratory failure(secondary to 1) - treat as above 3. AFib(chronic) -rate control adequate;Pacer capturing - continue apixaban, metoprolol 4.Depression anxiety - continue mood medications DVT prophylaxis, apixaben Quality Stroke Does the patient have a stroke diagnosis?: No VTE Prior VTE?: No VTE Risk Level:: Medical - moderate - high VTE Device Contraindication: Treatment Not Indicated VTE Drug Contraindication: N/A - Med Ordered
[2021-10-30] MEDS: clonazePAM 1 MG TABLET PO ×2 (14:08→22:18)
[2021-10-30] MEDS: cefTRIAXone sodium 1 GM in 0.9 % Sodium Chloride 50 ML IV (22:07)
[2021-10-30] MEDS: Melatonin 3 MG TABLET 6 MG PO (22:19)
[2021-10-30] MEDS: Azithromycin 500 MG in 0.9 % Sodium Chloride 250 ML 125 MG IV (23:06)
[2021-10-31] VITALS (7 sets, daily range): BP systolic 108–180; BP diastolic 70–79; PULSE 66–78; RESP 14–24; TEMP 36.1–36.7; O2SAT 96–97
--- NOTE | 2021-10-31 00:32 | PC.NURSE ---
Addendum entered by Lee Flores RN 10/31/21 00:38: hold abx and LR at this time per dr. varela. Original Note: 0020 administration of Azithromycin has caused local diffuse reddness/irritation around the IV site. The iv was stopped and flushed and the IV works well. No chest pain, difficulty breathing, swelling of the mouth or lips. Dr. Varela was notifed and advised to hold the abx.
[2021-10-31] MEDS: Albuterol/Iprat 2.5/0.5MG 3 ML AMPUL.NEB INHALE ×3 (07:37→19:52)
[2021-10-31] MEDS: Atorvastatin Calcium 10 MG TABLET PO (08:51)
[2021-10-31] MEDS: Cholecalciferol (Vitamin D3) 10 MCG TABLET PO (08:51)
[2021-10-31] MEDS: Metoprolol Succinate ER 100 MG TAB.ER.24H PO (08:51)
[2021-10-31] MEDS: PARoxetine HCL 20 MG TABLET PO (08:52)
[2021-10-31] MEDS: methylPREDNISolone Sod Succ 40 MG/ML VIAL IVPUSH ×2 (08:52→19:55)
[2021-10-31] MEDS: Multivitamin TABLET 1 TAB PO (08:52)
[2021-10-31] MEDS: Ferrous Sulfate 324 MG TABLET.DR PO (08:52)
[2021-10-31] MEDS: Apixaban 5 MG TABLET PO ×2 (08:52→19:54)
[2021-10-31] MEDS: Calcium + Vitamin D 250 MG TABLET 500 MG PO ×2 (08:52→19:55)
[2021-10-31] MEDS: Furosemide 40 MG TABLET PO (08:52)
[2021-10-31] MEDS: 0.9 % Sodium Chloride Flush 3 ML SYRINGE IVFLUSH ×2 (08:55→19:55)
--- NOTE | 2021-10-31 14:19 | HO.PM.IMPN ---
Subjective Subjective Date of Service: 10/31/21 Interval History: No acute issues overnight Review of Systems Denies CP. SOB improved Denies N/V/D Physical Exam Vital Signs: Vital Signs: Last Vital Signs Temp 98.1 F 10/31/21 01:43 Pulse 75 10/31/21 08:59 Resp 20 10/31/21 08:59 BP 121/73 10/31/21 08:59 Pulse Ox 97 10/31/21 08:59 Oxygen Flow Rate 3 10/29/21 20:18 BMI result Body Mass Index 38.0 Const: Other: No acute distress Resp: Other: Left basilar crackles otherwise clear Cardio: Other: -S4 +s1/s2 -S3 MRG GI: Other: soft NABS x 4 quads Extrem: Other: no edema bilat Objective Data Active Medications Acetaminophen (Acetaminophen 325 Mg Tablet) 650 mg PO Q6H PRN PRN Reason: Pain, Mild (Pain Scale 1-3) Albuterol/Ipratropium (Albuterol/Iprat 2.5/0.5mg 3 Ml Ampul.Neb) 3 ml INHALE Q4H PRN PRN Reason: Shortness of Breath/Wheezing Albuterol/Ipratropium (Albuterol/Iprat 2.5/0.5mg 3 Ml Ampul.Neb) 3 ml INHALE RQ4H WHILE AWAKE [facility] Last Admin: 10/31/21 11:34 Dose: Not Given Documented by: ELANA Non-Admin Reason: Patient Refused Apixaban (Apixaban 5 Mg Tablet) 5 mg PO BID [facility] Last Admin: 10/31/21 08:52 Dose: 5 mg Documented by: FANNY Atorvastatin Calcium (Atorvastatin Calcium 10 Mg Tablet) 10 mg PO DAILY [facility] Last Admin: 10/31/21 08:51 Dose: 10 mg Documented by: FANNY Calcium Carbonate/Cholecalciferol (Calcium + Vitamin D 250 Mg Tablet) 500 mg PO BID [facility] Last Admin: 10/31/21 08:52 Dose: 500 mg Documented by: FANNY Clonazepam (Clonazepam 1 Mg Tablet) 1 mg PO BID PRN PRN Reason: Anxiety Last Admin: 10/30/21 22:18 Dose: 1 mg Documented by: SUMANTH Docusate Sodium (Docusate Sodium 100 Mg Capsule) 100 mg PO DAILY PRN PRN Reason: Constipation Ferrous Sulfate (Ferrous Sulfate 324 Mg Tablet.) 324 mg PO DAILY [facility] Last Admin: 10/31/21 08:52 Dose: 324 mg Documented by: FANNY Furosemide (Furosemide 40 Mg Tablet) 40 mg PO DAILY [facility]; Protocol Last Admin: 10/31/21 08:52 Dose: 40 mg Documented by: FANNY Ceftriaxone Sodium 1 gm/ (Sodium Chloride) 50 mls @ 100 mls/hr IV Q24H [facility] Last Infusion: 10/30/21 22:40 Dose: 0 mls/hr Documented by: SUMANTH Azithromycin 500 mg/ Sodium (Chloride) 250 mls @ 125 mls/hr IV Q24H [facility] Last Infusion: 10/31/21 00:15 Dose: 0 mls/hr Documented by: SUMANTH Melatonin (Melatonin 3 Mg Tablet) 6 mg PO BEDTIME PRN PRN Reason: Sleep Last Admin: 10/30/21 22:19 Dose: 6 mg Documented by: SUMANTH Methylprednisolone Sodium Succinate (Methylprednisolone Sod Succ 40 Mg/Ml Vial) 40 mg IVPUSH Q12H [facility] Last Admin: 10/31/21 08:52 Dose: 40 mg Documented by: FANNY Metoprolol Succinate (Metoprolol Succinate Er 100 Mg Tab.Er.24h) 100 mg PO DAILY [facility]; Protocol Last Admin: 10/31/21 08:51 Dose: 100 mg Documented by: FANNY Multivitamins/Vitamin C (Multivitamin Tablet) 1 tab PO DAILY [facility] Last Admin: 10/31/21 08:52 Dose: 1 tab Documented by: FANNY Ondansetron HCl (Ondansetron Hcl 4 Mg/2 Ml Vial) 4 mg IVPUSH Q8H PRN PRN Reason: Nausea and Vomiting Paroxetine HCl (Paroxetine Hcl 20 Mg Tablet) 20 mg PO DAILY [facility] Last Admin: 10/31/21 08:52 Dose: 20 mg Documented by: FANNY Sodium Chloride (0.9 % Sodium Chloride Flush 3 Ml Syringe) 3 ml IVFLUSH QSHIFT [facility] Last Admin: 10/31/21 08:55 Dose: 3 ml Documented by: FANNY Vitamin D (Cholecalciferol (Vitamin D3) 10 Mcg Tablet) 10 mcg PO DAILY [facility] Last Admin: 10/31/21 08:51 Dose: 10 mcg Documented by: FANNY Zolpidem Tartrate (Zolpidem Tartrate 5 Mg Tablet) 5 mg PO BEDTIME PRN PRN Reason: Sleep Labs CBC & Chem 7: 10/30/21 07:22 10/30/21 07:22 Microbiology Microbiology Results: Microbiology 10/30/21 Unknown Urine Culture - Preliminary Urine clean catch - Clean Catch Midstream Culture in progress. 10/29/21 21:40 Blood Culture - Preliminary Blood - Venous No growth after 24 hours. 10/29/21 20:52 Blood Culture - Preliminary Blood - Venous No growth after 24 hours. Assessment and Plan (1) Acute exacerbation of chronic obstructive airways disease: Status: Acute (2) Acute respiratory failure with hypoxia: Status: Acute (3) Afib: Status: Acute Plan 70-year-old female with past medical history of COPD, AFib who presents to hospital with complaints of shortness of breath, cough, as well as sputum production found to have pneumonia 1.COPD exacerbation/pneumonia(sepsis resolved) - IV CTX/Azithro (3) - Solu-Medrol q 6 hrs/duonebs - follow cultures 2.Acute hypoxic respiratory failure(secondary to 1) - treat as above 3. AFib(chronic) -rate control adequate;Pacer capturing - continue apixaban, metoprolol 4.Depression anxiety - continue mood medications DVT prophylaxis, apixaben Quality Stroke Does the patient have a stroke diagnosis?: No VTE Prior VTE?: No VTE Risk Level:: Medical - moderate - high VTE Device Contraindication: Treatment Not Indicated VTE Drug Contraindication: N/A - Med Ordered
--- NOTE | 2021-10-31 15:17 | MHC.CM.PN ---
Addendum entered by Hanna Aguilar 11/01/21 11:20: CM RECEIVED A CALL FROM PTS DAUGHTER, NENO, WHO REPORTS SHE IS STILL THE PTS24/7 CAREGIVER. SHE REPORTS THE PT HAS A CANE, WALKER, RAISED TOILET, GRAB BARS, SHOWER CHAIR AND STAIR LIFT AT HOME. PTS PCP IS DR BURRIS FROM [facility] IN [place]. NENO REPORTS THE PT HAS NOT HAD ANY COVID VACCINES DUE TO HER HEART PROBLEMS. SHE IS AWARE THE PT MAY BE CLEARED TO DC HOME TOMORROW AND THAT SHE WILL BE CONTACTED ONCE THAT IS CONFIRMED. NENO DID INQUIRE ABOUT THE POSSIBILITY OF PT NEEDING STR HOWEVER CM DID EXPLAIN THE BARRIERS TO OBTAINING A BED AT A PREFERRED FACILITY DUE TO PT NOT HAVING THE COVID VACCINES. CM ALSO EXPLAINED THAT SINCE THIS HAS NOT BEEN AN EXTENDED ADMISSION, PT IS LESS LIKELY TO BE DECONDITIONED. CM DID OFFER A VNA REFERRAL FOR HOME PT HOWEVER NENO REPORTS THE PT USUALLY DECLINES. PER NENO, PT DOES GO TO [facility] HOWEVER AND THEY WILL DO ACTIVITIES WITH HER IF NENO BRINGS IN THE DC PAPERWORK. CURRENT DC PLAN IS HOME WITH RESUMPTION OF 24/7 HOME CARE AND [facility] DAUGHTER TO TRANSPORT Original Note: CM LEFT A VM FOR PTS DAUGHTER/CAREGIVER, NENO ([phone]) INFORMING HER OF PTS MEDICARE RIGHTS AND REQUESTING A RETURN CALL. [employer]IC COMPLETED USING EMR. PT LIVES WITH HER DAUGHTER WHO IS HER FT CAREGIVER. PT HAS A HCP ON FILE BUT NO PCP. MORE INFORMATION WILL BE OBTAINED WHEN DAUGHTER IS CONTACTED. CURRENT DC PLAN IS HOME WITH RESUMPTION OF [facility] [facility] DAUGHTER TYPICALLY TRANSPORTS
--- NOTE | 2021-10-31 15:29 | PC.NURSE ---
Pt received mid shift: Pt AOX4 and offers no current complaints. Heart sounds irregular due to hx of AFib and lungs dimished at bases. Pt continues to receive scheduled albuterol treatments. And pt remains on 3L N/C: O2 saturation within normal limits. Pt abd soft and non-tender. Pt abd to pivot herself on and off bedside commode.
[2021-10-31] MEDS: clonazePAM 1 MG TABLET PO (17:22)
[2021-10-31] MEDS: Melatonin 3 MG TABLET 6 MG PO (19:54)
[2021-10-31] MEDS: cefTRIAXone sodium 1 GM in 0.9 % Sodium Chloride 50 ML IV (19:55)
[2021-10-31] MEDS: Azithromycin 500 MG in 0.9 % Sodium Chloride 250 ML 125 MG IV (22:42)
[2021-11-01] VITALS (7 sets, daily range): BP systolic 118–149; BP diastolic 66–89; PULSE 70–85; RESP 12–20; TEMP 36.3–36.6; O2SAT 94–99
[2021-11-01 06:59] LABS: Basophils Percent Auto 0.1 % (0-2); Hematocrit 37.7 % (37.0-47.0); Hemoglobin 12.5 g/dl (12.0-16.0); Imm Gran Pct Auto 0.9 % (0.0-0.4); Lymphocytes Absolute Auto 1.1 X10*3/uL (1.2-4.9); Lymphocytes Percent Auto 4.9 % (20-40); MANUAL DIFF FLAG SCAN; Mean Corpuscular HGB Conc 33.2 g/dl (31.0-35.0); Mean Corpuscular Hemoglobin 29.2 pg (27.0-33.0); Mean Corpuscular Volume 88.1 fL (80.0-98.0); Mean Platelet Volume 9.7 fL (9.4-12.3); Monocytes Absolute Auto 0.5 X10*3/uL (0.1-1.2); Monocytes Percent Auto 2.2 % (2-11); Neutrophils Absolute Auto 19.9 x10*3/uL (2.0-8.3); Neutrophils Percent Auto 91.9 % (45-73); Platelet Count 316 X10*3/uL (160-400); Red Blood Count 4.28 X10*6/uL (4.20-5.50); Red Cell Distribution Width 13.3 % (11.0-16.0); SCAN SMEAR FLAG 1; White Blood Count 21.6 X10*3/uL (4.8-10.8)
[2021-11-01 07:19] LABS: Alanine Aminotransferase 17 U/L (0-31); Albumin Level 3.6 g/dL (3.5-5.0); Alkaline Phosphatase 76 U/L (39-117); Anion Gap 12 (12-20); Aspartate Amino Transferase 13 U/L (5-31); Bilirubin Total 0.2 mg/dL (0.0-1.0); Blood Urea Nitrogen 22 mg/dL (9-16); Calcium 9.1 mg/dL (8.4-10.2); Carbon Dioxide 27 mmol/L (22-29); Chloride 104 mmol/L (96-108); Creatinine Clr Calc Pharmacy 103.6; Estimated Glomerular Filt Rate > 60; Glucose Fasting 159 mg/dL (60-99); Potassium 4.6 mmol/L (3.3-5.1); Sodium 138 mmol/L (135-145); Total Protein 6.7 g/dL (6.5-8.0)
--- NOTE | 2021-11-01 07:25 | PC.NURSE ---
Pt received from weight shifter: Pt AOx4 and offers mild complaints of anxiety. Heart sounds normal and lungs diminished. Pt remains on 3L N/C. Pt abd soft and non-tender. Pt able to place herself on and off bedside commode.
[2021-11-01 07:39] LABS: SLIDE REVIEW VERIFIED
[2021-11-01] MEDS: Albuterol/Iprat 2.5/0.5MG 3 ML AMPUL.NEB INHALE ×2 (07:52→16:00)
[2021-11-01] MEDS: Apixaban 5 MG TABLET PO ×2 (10:19→21:59)
[2021-11-01] MEDS: Cholecalciferol (Vitamin D3) 10 MCG TABLET PO (10:19)
[2021-11-01] MEDS: Atorvastatin Calcium 10 MG TABLET PO (10:19)
[2021-11-01] MEDS: Calcium + Vitamin D 250 MG TABLET 500 MG PO ×2 (10:19→21:59)
[2021-11-01] MEDS: Ferrous Sulfate 324 MG TABLET.DR PO (10:20)
[2021-11-01] MEDS: Metoprolol Succinate ER 100 MG TAB.ER.24H PO (10:21)
[2021-11-01] MEDS: Furosemide 40 MG TABLET PO (10:21)
[2021-11-01] MEDS: Multivitamin TABLET 1 TAB PO (10:21)
[2021-11-01] MEDS: methylPREDNISolone Sod Succ 40 MG/ML VIAL IVPUSH ×2 (10:21→21:59)
--- NOTE | 2021-11-01 10:43 | PC.NURSE ---
Pt's update status given to pt's daughter Roberta: [phone]
--- NOTE | 2021-11-01 13:35 | HO.PM.IMPN ---
Subjective Subjective Date of Service: 11/01/21 Interval History: No acute issues overnight Review of Systems Denies CP. SOB improved Denies N/V/D Physical Exam Vital Signs: Vital Signs: Last Vital Signs Temp 97.9 F 11/01/21 08:08 Pulse 85 11/01/21 08:08 Resp 18 11/01/21 08:08 BP 124/66 11/01/21 08:08 Pulse Ox 99 11/01/21 08:08 Oxygen Flow Rate 3 10/29/21 20:18 BMI result Body Mass Index 38.0 Const: Other: No acute distress Resp: Other: Left basilar crackles otherwise clear Cardio: Other: -S4 +s1/s2 -S3 MRG GI: Other: soft NABS x 4 quads Extrem: Other: no edema bilat Objective Data Active Medications Acetaminophen (Acetaminophen 325 Mg Tablet) 650 mg PO Q6H PRN PRN Reason: Pain, Mild (Pain Scale 1-3) Albuterol/Ipratropium (Albuterol/Iprat 2.5/0.5mg 3 Ml Ampul.Neb) 3 ml INHALE Q4H PRN PRN Reason: Shortness of Breath/Wheezing Albuterol/Ipratropium (Albuterol/Iprat 2.5/0.5mg 3 Ml Ampul.Neb) 3 ml INHALE RQ4H WHILE AWAKE [facility] Last Admin: 11/01/21 11:27 Dose: Not Given Documented by: ELANA Non-Admin Reason: Patient Refused Apixaban (Apixaban 5 Mg Tablet) 5 mg PO BID [facility] Last Admin: 11/01/21 10:19 Dose: 5 mg Documented by: FRANCHESKA Atorvastatin Calcium (Atorvastatin Calcium 10 Mg Tablet) 10 mg PO DAILY [facility] Last Admin: 11/01/21 10:19 Dose: 10 mg Documented by: FRANCHESKA Calcium Carbonate/Cholecalciferol (Calcium + Vitamin D 250 Mg Tablet) 500 mg PO BID [facility] Last Admin: 11/01/21 10:19 Dose: 500 mg Documented by: FRANCHESKA Clonazepam (Clonazepam 1 Mg Tablet) 1 mg PO BID PRN PRN Reason: Anxiety Last Admin: 10/31/21 17:22 Dose: 1 mg Documented by: FRANCHESKA Docusate Sodium (Docusate Sodium 100 Mg Capsule) 100 mg PO DAILY PRN PRN Reason: Constipation Ferrous Sulfate (Ferrous Sulfate 324 Mg Tablet.Dr) 324 mg PO DAILY [facility] Last Admin: 11/01/21 10:20 Dose: 324 mg Documented by: FRANCHESKA Furosemide (Furosemide 40 Mg Tablet) 40 mg PO DAILY [facility]; Protocol Last Admin: 11/01/21 10:21 Dose: 40 mg Documented by: FRANCHESKA Ceftriaxone Sodium 1 gm/ (Sodium Chloride) 50 mls @ 100 mls/hr IV Q24H [facility] Last Infusion: 10/31/21 21:30 Dose: 0 mls/hr Documented by: ANNA Azithromycin 500 mg/ Sodium (Chloride) 250 mls @ 125 mls/hr IV Q24H [facility] Last Infusion: 11/01/21 10:18 Dose: 0 mls/hr Documented by: FRANCHESKA Melatonin (Melatonin 3 Mg Tablet) 6 mg PO BEDTIME PRN PRN Reason: Sleep Last Admin: 10/31/21 19:54 Dose: 6 mg Documented by: ANNA Methylprednisolone Sodium Succinate (Methylprednisolone Sod Succ 40 Mg/Ml Vial) 40 mg IVPUSH Q12H [facility] Last Admin: 11/01/21 10:21 Dose: 40 mg Documented by: FRANCHESKA Metoprolol Succinate (Metoprolol Succinate Er 100 Mg Tab.Er.24h) 100 mg PO DAILY [facility]; Protocol Last Admin: 11/01/21 10:21 Dose: 100 mg Documented by: FRANCHESKA Multivitamins/Vitamin C (Multivitamin Tablet) 1 tab PO DAILY [facility] Last Admin: 11/01/21 10:21 Dose: 1 tab Documented by: FRANCHESKA Ondansetron HCl (Ondansetron Hcl 4 Mg/2 Ml Vial) 4 mg IVPUSH Q8H PRN PRN Reason: Nausea and Vomiting Paroxetine HCl (Paroxetine Hcl 20 Mg Tablet) 20 mg PO DAILY [facility] Last Admin: 11/01/21 10:21 Dose: Not Given Documented by: FRANCHESKA Non-Admin Reason: Patient Refused Sodium Chloride (0.9 % Sodium Chloride Flush 3 Ml Syringe) 3 ml IVFLUSH QSHIFT [facility] Last Admin: 11/01/21 07:28 Dose: Not Given Documented by: FRANCHESKA Non-Admin Reason: Med Not Available Vitamin D (Cholecalciferol (Vitamin D3) 10 Mcg Tablet) 10 mcg PO DAILY [facility] Last Admin: 11/01/21 10:19 Dose: 10 mcg Documented by: FRANCHESKA Zolpidem Tartrate (Zolpidem Tartrate 5 Mg Tablet) 5 mg PO BEDTIME PRN PRN Reason: Sleep Labs CBC & Chem 7: 11/01/21 06:49 11/01/21 06:49 Labs: Laboratory Results - last 24 hr 10/29/21 10/30/21 11/01/21 20:54 07:22 06:49 WBC 23.3 H 20.2 H 21.6 H MCV 88.1 MCH 29.2 MCHC 33.2 RDW 13.3 Plt Count 316 MPV 9.7 Immature Gran % (Auto) 0.9 H Neut % (Auto) 91.9 H Lymph % (Auto) 4.9 L [place] % (Auto) 2.2 Eos % (Auto) 0.0 Baso % (Auto) 0.1 Lymph # (Auto) 1.1 L [place] # (Auto) 0.5 Eos # (Auto) 0.0 Baso # (Auto) 0.0 Abs Immat Gran (auto) 0.20 H Absolute Neuts (auto) 19.9 H Absolute Nucleated RBC 0.000 Nucleated RBC % (auto) 0.0 Smear Tech's Comments VERIFIED Anion Gap Estim Creat Clear Calc Estimated GFR Fasting Glucose Calcium Total Bilirubin AST ALT Alkaline Phosphatase Total Protein Albumin 11/01/21 06:49 WBC MCV MCH MCHC RDW Plt Count MPV Immature Gran % (Auto) Neut % (Auto) Lymph % (Auto) [place] % (Auto) Eos % (Auto) Baso % (Auto) Lymph # (Auto) [place] # (Auto) Eos # (Auto) Baso # (Auto) Abs Immat Gran (auto) Absolute Neuts (auto) Absolute Nucleated RBC Nucleated RBC % (auto) Smear Tech's Comments Anion Gap 12 Estim Creat Clear Calc 103.6 Estimated GFR > 60 Fasting Glucose 159 H Calcium 9.1 Total Bilirubin 0.2 AST 13 D ALT 17 Alkaline Phosphatase 76 D Total Protein 6.7 Albumin 3.6 Microbiology Microbiology Results: Microbiology 10/30/21 Unknown Urine Culture - Final Urine clean catch - Clean Catch Midstream 10/29/21 21:40 Blood Culture - Preliminary Blood - Venous No growth after 48 hours. 10/29/21 20:52 Blood Culture - Preliminary Blood - Venous No growth after 48 hours. Assessment and Plan (1) Acute exacerbation of chronic obstructive airways disease: Status: Acute (2) Afib: Status: Acute Plan 70-year-old female with past medical history of COPD, AFib who presents to hospital with complaints of shortness of breath, cough, as well as sputum production found to have pneumonia 1.COPD exacerbation/pneumonia(sepsis resolved) - IV CTX/Azithro (4) - Solu-Medrol q 6 hrs/duonebs - titrate O2 as tolerated 2.Acute hypoxic respiratory failure(secondary to 1) - treat as above 3. AFib(chronic) -rate control adequate;Pacer capturing - continue apixaban, metoprolol 4.Depression anxiety - continue mood medications DVT prophylaxis, apixaben Quality Stroke Does the patient have a stroke diagnosis?: No VTE Prior VTE?: No VTE Risk Level:: Medical - moderate - high VTE Device Contraindication: Treatment Not Indicated VTE Drug Contraindication: N/A - Med Ordered
[2021-11-01] MEDS: clonazePAM 1 MG TABLET PO (15:07)
--- NOTE | 2021-11-01 17:32 | PC.NURSE ---
Pt taken off N/C earlier this morning and has been tolerating well. Repeat vitals within normal range. Pt OOB and into recliner chair as per Dr Rome- pt sat in chair for about 1-1.5 hours and then wanted to go back to bed.
[2021-11-01] MEDS: cefTRIAXone sodium 1 GM in 0.9 % Sodium Chloride 50 ML IV (21:59)
[2021-11-01] MEDS: Azithromycin 500 MG in 0.9 % Sodium Chloride 250 ML 125 MG IV (22:00)
[2021-11-02] MEDS: 0.9 % Sodium Chloride Flush 3 ML SYRINGE IVFLUSH ×2 (00:16→09:26)
[2021-11-02] MEDS: Melatonin 3 MG TABLET 6 MG PO (00:20)
[2021-11-02] MEDS: Acetaminophen 325 MG TABLET 650 MG PO (00:20)
[2021-11-02 00:56] VITALS: BP 112/60; PULSE 71; RESP 18; O2SAT 95
--- NOTE | 2021-11-02 06:26 | PC.NURSE ---
Patient complained of IV site pain, found to have infiltrated line. This RN removed that line and placed a 20g IV in the right wrist, flushes with no complications.
[2021-11-02] MEDS: Apixaban 5 MG TABLET PO (09:25)
[2021-11-02] MEDS: Calcium + Vitamin D 250 MG TABLET 500 MG PO (09:25)
[2021-11-02] MEDS: Atorvastatin Calcium 10 MG TABLET PO (09:25)
[2021-11-02] MEDS: PARoxetine HCL 20 MG TABLET PO (09:25)
[2021-11-02] MEDS: Ferrous Sulfate 324 MG TABLET.DR PO (09:25)
[2021-11-02] MEDS: Multivitamin TABLET 1 TAB PO (09:25)
[2021-11-02] MEDS: Cholecalciferol (Vitamin D3) 10 MCG TABLET PO (09:25)
[2021-11-02] MEDS: Metoprolol Succinate ER 100 MG TAB.ER.24H PO (09:25)
[2021-11-02] MEDS: Furosemide 40 MG TABLET PO (09:25)
[2021-11-02] MEDS: methylPREDNISolone Sod Succ 40 MG/ML VIAL IVPUSH (09:26)
[2021-11-02 10:20] VITALS: BP 112/60; PULSE 71; O2SAT 95
--- NOTE | 2021-11-02 12:21 | P.DS_ITS ---
DS: Providers Provider Date of Service: 11/02/21 Date of admission: 10/29/21 22:43 Date of discharge: 11/02/21 Primary care physician: David Elizabeth MD DS: Diagnosis Discharge Diagnosis (1) Acute exacerbation of chronic obstructive airways disease: Status: Acute (2) Afib: Status: Acute DS: Summary Hospital Course Hospital Course: This 70-year-old female with past medical history of AFib, COPD, hyperlipidemia, anxiety and depression, who presents to the hospital with complaints of shortness of breath, cough, sputum production.? Patient reports that her symptoms started 3-4 days ago, progressively worsening, associated with chest pain.? She describes the chest pain as tight, stabbing midsternal pain, nonradiating, constant, no alleviating factors.? Patient denies having any palpitations.? No fever or chills.? On arrival of EMS patient was found to be hypoxic satting in the mid 80s. ?Patient is complaining of diffuse abdominal pain, denies any nausea vomiting diarrhea constipation no urinary symptoms.? She denies any lower extremity edema.? No orthopnea or PND. All other review of system negative Hospital Course Admitted and treated forCAP with CTX/Azithro and steroid taper. Over the next 72 hrs, markedly improved...O2 tapered off. Seen by PT who recommend home PT; will ask nursing to see to monitor pulmonary status Time Spent with Patient Time attestation: Total time spent providing and/or coordinating discharge services: Discharge coordination time: Greater than 30 minutes Quality: Stroke Does the patient have a stroke diagnosis?: No Physical Exam Vital Signs: Vital Signs: Last Vital Signs Temp 97.6 F 11/01/21 21:31 Pulse 71 11/02/21 10:20 Resp 18 11/02/21 00:56 BP 112/60 11/02/21 10:20 Pulse Ox 95 11/02/21 10:20 Oxygen Flow Rate 3 10/29/21 20:18 BMI result Body Mass Index 38.0 Const: Other: No acute distress Resp: Other: Left basilar crackles otherwise clear Cardio: Other: -S4 +s1/s2 -S3 MRG GI: Other: soft NABS x 4 quads Extrem: Other: no edema bilat DS: Data Data Completed and Pending Completed studies during hospitalization [Text1]: Procedures Reposition Right Upper Femur with Intramedullary Internal Fixation Device, Percutaneous Approach (08/28/20) Labs on day of discharge: Preliminary micro results at discharge 10/29/21 21:40 Blood Culture - Preliminary Blood - Venous No growth after 48 hours. 10/29/21 20:52 Blood Culture - Preliminary Blood - Venous No growth after 48 hours. Discharge Plan Discharge Patient Disposition: Home, Self-Care Discharge Diagnosis: COPD exacerbation secondary to pneulmonia Referrals: [facility] [Outside] - 1 Week (This agency [facility] provide [place]. They will call you to arrange a visit. ) David Elizabeth MD [Primary Care Provider] - 1 Week Discharge Medications: New doxycycline hyclate 100 mg capsule 100 mg PO BID Qty: 20 0RF prednisone 10 mg tablet See Rx Instructions .Route .COMPLEX Qty: 45 0RF Rx Instructions: 10 mg orally; 5 tabs p.o. daily x3 days; 4 tabs p.o. daily x3 days; 3 tabs daily x3 days; 2 tabs daily x3 days; 1 tab daily x3 days Continued furosemide 40 mg tablet 40 mg PO DAILY 0RF clonazepam 1 mg tablet 1 mg PO BID PRN (Reason: Anxiety) 0RF paroxetine HCl 20 mg tablet 20 mg PO DAILY 0RF zolpidem 5 mg tablet 5 mg PO BEDTIME PRN (Reason: Sleep) 0RF calcium carbonate-vitamin D3 [Oystercal-D] 500 mg(1,250mg) -400 unit tablet 1 tab PO BID 0RF zinc 50 mg Tablet 50 mg PO DAILY 0RF albuterol sulfate [Ventolin HFA] 90 mcg/actuation HFA aerosol inhaler 2 puff inhalation Q4H PRN (Reason: Wheezing) 0RF multivitamin Tablet 1 tab PO DAILY 0RF metoprolol succinate 50 mg tablet extended release 24 hr 100 mg PO DAILY 0RF Rx Instructions: IN THE MORNING melatonin 5 mg capsule 5 mg PO BEDTIME PRN (Reason: Sleep) 0RF apixaban 5 mg tablet 5 mg PO BID 0RF atorvastatin 10 mg tablet 10 mg PO DAILY 0RF ferrous sulfate 325 mg (65 mg iron) tablet 325 mg PO DAILY 0RF cholecalciferol (vitamin D3) 10 mcg (400 unit) capsule 10 mcg PO DAILY 0RF Prolia 60 mg/mL syringe 60 mg subcut [id number] Qty: 1 1RF (DME) Wheelchair See Rx Instructions .ROUTE .MEDSULY Qty: 1 0RF Rx Instructions: with larger than standard size wheels Discharge Orders: Discharge Order (Routine); Ordered 11/02/21 Ordered By: Robert Rome Diet: advance to usual diet Activity on Discharge: As tolerated Stand Alone Forms: Patient Portal Discharge page Care Plan Goals: COmplete course of Doxycycline along with prednisone taper Health Concerns: Maintain highest level of function. Plan of Treatment: Antibiotic as ordered. Prednisone taper with foot Assessment: see DC summary
--- NOTE | 2021-11-02 12:29 | PC.NURSE ---
Pt A&Ox3, no complaints of pain, medicated as per MAR orders, VSS, OOB to commode independtly with stand and pivot. PT worked with Pt this morning, plan for DC this afternoon, LCA, No edema noted, +CMS and good color. BM this am. Call hernández within reach, will continue to monitor.
--- NOTE | 2021-11-02 12:30 | MHC.CM.PN ---
Addendum entered by Dena Farah 11/02/21 12:43: Per Josette, physical therapy can be referred to [facility] as well. Original Note: Received notification from Dr Rome that patient will be discharged today. Physical therapy eval completed. Home therapy is recommended. Patient is active with [facility]. Per Josette at [facility], referral for custodial can be made to [facility]. Josette will check with the physical therapy team to see if they can provide those services. Referral made via [facility]. Continue to monitor for d/c needs.
--- NOTE | 2021-11-02 12:37 | P.F2F_ITS ---
Service Date Service Date: 11/02/21 Encounter Date of encounter: 11/02/21 Encounter: Inpatient setting Reasons for Services Signs and symptoms assessed: COPD exacerbation secondary to pneumonia Reason for residential: medication management and other Reason for physical therapy: home safety and mobility, therapeutic exercises and gait/transfer training Homebound: Leaving the home is medically contraindicated at this time without the asist of a device and/or another person due th the listed conditions above and below. Reason homebound: unable to drive Certification: Based on the above findings, I certify that this patient is confined to the home and needs intermittent residential care, physical therapy and/or speech therapy, or continues to need occupational therapy. The patient is under my care, and I have initiated the establishment of the plan of care. The patient will be followed by a physician who will periodically review the plan of care.
[2021-11-02 14:19] LABS: MANUAL DIFF FLAG NO
[2021-11-02 14:21] LABS: Basophils Percent Auto 0.2 % (0-2); Hematocrit 39.8 % (37.0-47.0); Hemoglobin 13.5 g/dl (12.0-16.0); Imm Gran Abs Auto 0.42 X10*3/uL (0.00-0.03); Imm Gran Pct Auto 2.5 % (0.0-0.4); Lymphocytes Absolute Auto 1.1 X10*3/uL (1.2-4.9); Lymphocytes Percent Auto 6.5 % (20-40); Mean Corpuscular HGB Conc 33.9 g/dl (31.0-35.0); Mean Corpuscular Hemoglobin 29.5 pg (27.0-33.0); Mean Corpuscular Volume 87.1 fL (80.0-98.0); Mean Platelet Volume 9.5 fL (9.4-12.3); Monocytes Absolute Auto 0.3 X10*3/uL (0.1-1.2); Monocytes Percent Auto 1.9 % (2-11); Neutrophils Percent Auto 88.9 % (45-73); Platelet Count 343 X10*3/uL (160-400); Red Blood Count 4.57 X10*6/uL (4.20-5.50); Red Cell Distribution Width 13.1 % (11.0-16.0); White Blood Count 16.9 X10*3/uL (4.8-10.8)
[2021-11-02 14:44] LABS: Alanine Aminotransferase 18 U/L (0-31); Albumin Level 3.6 g/dL (3.5-5.0); Alkaline Phosphatase 75 U/L (39-117); Anion Gap 13 (12-20); Aspartate Amino Transferase 14 U/L (5-31); Bilirubin Total 0.4 mg/dL (0.0-1.0); Blood Urea Nitrogen 27 mg/dL (9-16); Calcium 9.3 mg/dL (8.4-10.2); Carbon Dioxide 27 mmol/L (22-29); Chloride 100 mmol/L (96-108); Creatinine Clr Calc Pharmacy 78.3; Estimated Glomerular Filt Rate > 60; Glucose Fasting 244 mg/dL (60-99); Potassium 4.1 mmol/L (3.3-5.1); Sodium 136 mmol/L (135-145); Total Protein 6.8 g/dL (6.5-8.0)
[2021-11-02 15:29] VITALS: BP 107/62; PULSE 70; RESP 16; TEMP 36.8; O2SAT 95
--- NOTE | 2021-11-11 07:19 | P.CDIR_ITS ---
Documented by User: Flora Sullivan CCS, CDIS 11/11/21 07:25 Retrospective Query PHYSICIAN'S DOCUMENTATION REQUEST Date of Query: 11/11/21718 Patient Name: Sari Mccarthy Admit Date: 10/29/21 Dear Doctor, A review of the medical record indicates additional documentation may be needed. Please review below and update the documentation accordingly. Consistency of documentation within the medical record: Risk Factors/Clinical Indicators/Treatments PN:10/29 & 10/31 - Sepsis due to COPD exac/Pneumonia ( Sepsis resolved) WBC 23.3 Temp 102.5 LA 2.1 hypoxic satting in mid 80's w RR 24 placed on oxygen. IV Antibiotics Please clarify which of the following most accurately describes the above abnormalities: * Sepsis due to COPD exacerbation/Pneumonia POA, resolved * Systemic manifestations of infection, with 2 or more SIRS criteria which include: -Fever > 100.4F or hypothermia < 96.8 F -Leukocytosis - WBC > 12,000 or leukopenia, WBC < 4,000 or > 10% bands -Tachycardia > 90 beats/minute -Tachypnea - RR > 20 breaths/minute or PaCO2 < 32mmHg * Other * Unable to determine Use of terms such as suspected, likely, concern for, or probable (associated with a specific diagnosis that is being evaluated, monitored, or treated as if it exists) are acceptable and can be coded in the inpatient setting, when documented at the time of discharge. Thank you, Flora Sullivna CCS, CDIS Extension:[phone] Please use your independent medical judgment in providing your response. THIS QUERY IS PART OF THE PERMANENT MEDICAL RECORD Documented by User: Robert Rome DO 12/01/21 17:56 Retrospective Query Provider Response: Other
== END 2021-11-02 17:02 | disposition home or self-care (01) | DRG 871 ==
LOC: HO.ED 22:31 → HO.EDOVER 23:25
PROVIDERS: Nurse Practitioner Family; Admitting Provider Internal Medicine; Emergency Provider Emergency Medicine; PCP Internal Medicine; Visit Provider Hospitalist
DX: A41.9 Sepsis, unspecified organism (principal); J96.01 Acute respiratory failure with hypoxia; J18.9 Pneumonia, unspecified organism; J44.1 Chronic obstructive pulmonary disease with (acute) exacerbation; J44.0 Chronic obstructive pulmonary disease with (acute) lower respiratory infection; E87.2 Acidosis; I48.20 Chronic atrial fibrillation, unspecified; K21.9 Gastro-esophageal reflux disease without esophagitis; Z96.651 Presence of right artificial knee joint; F17.210 Nicotine dependence, cigarettes, uncomplicated; Z71.6 Tobacco abuse counseling; E78.5 Hyperlipidemia, unspecified; F41.9 Anxiety disorder, unspecified; F32.A Depression, unspecified; Z20.822 Contact with and (suspected) exposure to COVID-19; Z88.2 Allergy status to sulfonamides; Z88.5 Allergy status to narcotic agent; Z79.01 Long term (current) use of anticoagulants; Z79.899 Other long term (current) drug therapy
CPT/HCPCS: 36415; 71045; 74018; 80048; 80053; 80076; 81001; 83605; 83690; 83735; 83880; 84484; 85025; 85610; 85730; 87040; 87086; 87635; 93005; 94640; 94644; 96361; 96365; 96375; 97162; 99285; 99291; J0456; J0696; J1885; J2920; J2930

== ENCOUNTER 2021-11-07 05:04 | Inpatient (IN) | payer MEDICARE, SELFPAY ==
--- NOTE | ~2021-11-07 | CT_ITS ---
EXAMINATION: CT ABDOMEN AND PELVIS WITH AND WITHOUT CONTRAST CLINICAL INFORMATION: GI bleed COMPARISON: None TECHNIQUE: Axial images through the abdomen and pelvis with and without IV contrast. Sagittal and coronal reconstructions on the technologist workstation were performed. Patient dose 313 4 mg/cm. This CT examination was performed using dose optimization techniques as appropriate, variously including the following: *Automated exposure control *Adjustment of mA and/or kV according to patient size (this includes techniques or standardized protocols for targeted exams where dose is matched to indication/reason for exam; i.e. extremities or head) *Use of iterative reconstruction technique FINDINGS: There is no evidence of active GI bleeding. There is atherosclerotic disease of the thumb aorta. No aneurysm is seen. The celiac axis SMA and LV are patent. There are single patent renal arteries. The common, internal and external iliac and common femoral arteries and bilateral femoral bifurcations are patent There is mild diverticulosis of the colon. No evidence of diverticulitis is seen. There is question of mild colitis of the distal colon. The small and large bowel are otherwise unremarkable. The stomach and esophagus distended and fluid-filled. There is an esophageal hernia. The GE junction appears to be below the diaphragm and this may represent a paraesophageal hernia containing the distal stomach. The appendix is not seen. . There is atelectasis in the right lower lobe adjacent to the hernia and inferior lingula.. The lung bases are otherwise clear. The liver is low in attenuation suggestive of fatty infiltration. The liver and gallbladder are otherwise normal. There is a 1 cm low-attenuation lesion in the spleen probably representing a cyst. The pancreas is normal. There is a small 1 cm left adrenal nodule. The right adrenal gland is normal.. There is a 2 cm low-attenuation right renal lesion probably represents a cyst. The bladder is normal. The uterus appears to have been removed. No pelvic mass is seen. No hernia is seen. No ascites or adenopathy is seen. There is evidence of atherosclerotic disease. There is orthopedic hardware with 2 screws in the right proximal femur. There is arthritis of the spine and hip joints. CT/CT gi bleed abd pel wo/w con IMPRESSION: No evidence of active GI bleeding. Diverticulosis of the colon. No evidence of diverticulitis. Question mild wall thickening or colitis of the distal colon. Fluid-filled distended stomach and esophagus. Large esophageal hernia which appears to represent a paraesophageal hernia containing the distal stomach. Fatty liver. Spleen and right renal cysts.
[2021-11-07 05:13] VITALS: BP 124/82; BP 138/90; PULSE 73; PULSE 98; RESP 22; TEMP 36.7; O2SAT 94; BMI 37.7
--- NOTE | 2021-11-07 05:41 | ECG_ITS ---
Test Reason : GI BLEED Blood Pressure : / mmHG Vent. Rate : 072 BPM Atrial Rate : 073 BPM P-R Int : 000 ms QRS Dur : 142 ms QT Int : 454 ms P-R-T Axes : 000 -34 -87 degrees QTc Int : 497 ms Poor data quality, interpretation may be adversely affected Ventricular-paced rhythm Abnormal ECG When compared with ECG of 29-OCT-2021 21:10, No significant change was found Referred By: Torie Garcia Electronically Signed By:MAGDIEL CHAIREZ MD
--- NOTE | 2021-11-07 05:42 | ED.NAVMDI ---
HPI - Nausea/Vomiting/Diarrhea General Chief complaint: GI Bleed Stated complaint: vomiting Time Seen by Provider: 11/07/21 05:29 Source: patient Mode of arrival: EMS History of Present Illness HPI Narrative: 70-year-old female not on anticoagulation who presents via ambulance after experiencing multiple episodes of nausea and vomiting over the past 24 hours that turn towards coffee-ground and black in nature last evening. Patient states that she kept thinking that it would improve and it did not and she states that she began feeling weak and describes epigastric abdominal pain. Otherwise, she denies any shortness of breath/chest pain/palpitations or urinary pain/burning/frequency. Related Data Home Medications Medication Instructions Recorded Confirmed apixaban 5 mg tablet 5 mg PO BID 07/21/20 10/29/21 atorvastatin 10 mg tablet 10 mg PO DAILY 07/21/20 10/29/21 cholecalciferol (vitamin D3) 10 10 mcg PO DAILY 07/21/20 10/29/21 mcg (400 unit) capsule ferrous sulfate 325 mg (65 mg 325 mg PO DAILY 07/21/20 10/29/21 iron) tablet melatonin 5 mg capsule 5 mg PO BEDTIME PRN 07/21/20 10/29/21 metoprolol succinate 50 mg 100 mg PO DAILY 07/21/20 10/29/21 tablet,extended release 24 hr multivitamin 1 tab PO DAILY 07/21/20 10/29/21 calcium carbonate 500 mg-vitamin 1 tab PO BID 08/28/20 10/29/21 D3 10 mcg (400 unit) tablet (Oystercal-D) clonazepam 1 mg tablet 1 mg PO BID PRN 08/28/20 10/29/21 furosemide 40 mg tablet 40 mg PO DAILY 08/28/20 10/29/21 paroxetine HCl 20 mg tablet 20 mg PO DAILY 08/28/20 10/29/21 zinc 50 mg tablet 50 mg PO DAILY 08/28/20 10/29/21 zolpidem 5 mg tablet 5 mg PO BEDTIME PRN 08/28/20 10/29/21 albuterol sulfate 90 mcg/actuation 2 puff INHALATION Q4H PRN 10/29/21 10/29/21 aerosol inhaler (Ventolin HFA) Previous Rx's Medication Instructions Recorded Wheelchair #1 ea 10/06/20 denosumab 60 mg/mL subcutaneous 60 mg SUBCUT [id number] #1 ml 08/20/21 syringe (Prolia) doxycycline hyclate 100 mg capsule 100 mg PO BID #20 cap 11/02/21 prednisone 10 mg tablet See Rx Instructions .ROUTE 11/02/21 .COMPLEX #45 tab Allergies Allergy/AdvReac Type Severity Reaction Status Date / Time azithromycin Allergy Rash Verified 10/31/21 07:27 tramadol Allergy Vomiting Verified 10/29/21 23:19 Sulfa (Sulfonamide AdvReac Intermediate VOMITING Verified 05/07/21 08:12 Antibiotics) [SULFA(SULFONAMIDE ANTIBIOTICS)] Review of Systems Review of Systems: Pertinent positives and negatives as stated in HPI 10 point review of systems is otherwise negative. [facility] Past Medical History Source: nursing notes reviewed Medical History Afib Anxiety Aortic stenosis Asthma Closed right hip fracture Depression Fracture of hip GERD (gastroesophageal reflux disease) Myocardial infarction Normocytic anemia Osteoporosis Pacemaker Surgical History H/O: hysterectomy Status post right knee replacement Family History Family History Other No family history of coronary artery disease Social History Social History Household Members: Family Housing: Apartment Do you presently have visiting nurse or other home services: No Alcohol intake: never Patient Tobacco Use Status: Current everyday Tobacco user Cigarette Packs Per Day: 0.25 Cigarettes Per Day: 4 Years Smoked: 55 Advance Directives: Yes Advance Directives on File: Yes Advance Directives Date on File: 08/28/20 service: No Current occupational status: retired Physical Exam Vital Signs: Vital Signs: Last Vital Signs Temp 98.0 F 11/07/21 05:13 Pulse 73 11/07/21 05:13 Resp 22 H 11/07/21 05:13 BP 124/82 11/07/21 05:13 Pulse Ox 94 11/07/21 05:13 BMI result Body Mass Index 37.7 VITAL SIGNS: Reviewed. GENERAL: Well developed, well nourished, in no acute distress. HEAD: Normocephalic/atraumatic EYES: PERRLA, EOMI OROPHARYNX: no oral lesions noted, posterior pharynx clear, dry mucosa and stigmata hematemesis NECK: Supple, no adenopathy LUNGS: Normal breath sounds. No adventitious sounds or accessory muscle use. SpO2<94> CARDIOVASCULAR: Regular rate and rhythm without noted murmurs, no JVD or lower extremity edema. ABDOMEN: Soft, tenderness at epigastrium without rebound, non-distended with bowel sounds. RYANN: Noninflamed external hemorrhoids noted, soft brown stool in the rectal vault, good rectal tone MUSCULOSKELETAL: No tenderness, deformities, or effusions noted on gross inspection. EXTREMITIES: No cyanosis, clubbing or edema. SKIN: Inspection of the skin reveals no rashes NEUROLOGIC: Alert and oriented x 4. Strength and sensation to light touch were grossly intact x 4. Course Course Course Narrative: 70-year-old female with history and clinical presentation suggestive of possible gastroenteritis which has led to gastritis and hematemesis. He has received 1 L of IV fluids, 40 mg of Protonix, antibiotics. She has remained hemodynamically stable. Urosepsis after review of all investigations. Signed out to Dr Martinez: f/u CT scan, needs admission. MDM - Nausea/Vomiting/Diarrhea Lab Data Result diagrams: 11/07/21 06:22 11/07/21 06:22 Labs: Lab Results 11/07/21 11/07/21 11/07/21 Range/Units 06:22 06:22 06:22 WBC 22.9 H (4.8-10.8) X10*3/uL RBC 5.07 (4.20-5.50) X10*6/uL Hgb 14.6 (12.0-16.0) g/dl Hct 44.6 (37.0-47.0) % MCV 88.0 (80.0-98.0) fL MCH 28.8 (27.0-33.0) pg MCHC 32.7 (31.0-35.0) g/dl RDW 13.2 (11.0-16.0) % Plt Count 350 (160-400) X10*3/uL MPV 9.2 L (9.4-12.3) fL Immature Gran % (Auto) 1.1 H (0.0-0.4) % Neut % (Auto) 82.6 H (45-73) % Lymph % (Auto) 10.0 L (20-40) % [place] % (Auto) 6.2 (2-11) % Eos % (Auto) 0.0 (0-4) % Baso % (Auto) 0.1 (0-2) % Lymph # (Auto) 2.3 (1.2-4.9) X10*3/uL [place] # (Auto) 1.4 H (0.1-1.2) X10*3/uL Eos # (Auto) 0.0 (0.0-0.4) X10*3/uL Baso # (Auto) 0.0 (0.0-0.2) X10*3/uL Abs Immat Gran (auto) 0.26 H (0.00-0.03) X10*3/uL Absolute Neuts (auto) 18.9 H (2.0-8.3) x10*3/uL Absolute Nucleated RBC 0.000 (0.0-0.012) X10*3/uL Nucleated RBC % (auto) 0.0 (0.0-0.2) /100WBC PT 13.3 H (9.9-13.0) SEC INR 1.2 H (0.9-1.1) Sodium 141 (135-145) mmol/L Potassium 5.1 D (3.3-5.1) mmol/L Chloride 95 L (96-108) mmol/L Carbon Dioxide 32 H (22-29) mmol/L Anion Gap 19 (12-20) BUN 28 H (9-16) mg/dL Creatinine 0.82 (0.5-1.4) mg/dL Estim Creat Clear Calc 85.4 Estimated GFR > 60 POC Glucose (60-115) mg/dL Random Glucose 157 H (60-115) mg/dL Lactic Acid (0.5-2.0) mmol/L Calcium 9.0 (8.4-10.2) mg/dL Total Bilirubin 0.9 (0.0-1.0) mg/dL Direct Bilirubin 0.3 (0.0-0.5) mg/dL AST 30 D (5-31) U/L ALT 28 (0-31) U/L Alkaline Phosphatase 70 (39-117) U/L Total Protein 7.2 (6.5-8.0) g/dL Albumin 3.7 (3.5-5.0) g/dL Lipase 8 (8-78) U/L Stool Occult Blood (NEGATIVE) 11/07/21 11/07/21 11/07/21 Range/Units 06:22 06:22 07:06 WBC (4.8-10.8) X10*3/uL RBC (4.20-5.50) X10*6/uL Hgb (12.0-16.0) g/dl Hct (37.0-47.0) % MCV (80.0-98.0) fL MCH (27.0-33.0) pg MCHC (31.0-35.0) g/dl RDW (11.0-16.0) % Plt Count (160-400) X10*3/uL MPV (9.4-12.3) fL Immature Gran % (Auto) (0.0-0.4) % Neut % (Auto) (45-73) % Lymph % (Auto) (20-40) % [place] % (Auto) (2-11) % Eos % (Auto) (0-4) % Baso % (Auto) (0-2) % Lymph # (Auto) (1.2-4.9) X10*3/uL [place] # (Auto) (0.1-1.2) X10*3/uL Eos # (Auto) (0.0-0.4) X10*3/uL Baso # (Auto) (0.0-0.2) X10*3/uL Abs Immat Gran (auto) (0.00-0.03) X10*3/uL Absolute Neuts (auto) (2.0-8.3) x10*3/uL Absolute Nucleated RBC (0.0-0.012) X10*3/uL Nucleated RBC % (auto) (0.0-0.2) /100WBC PT (9.9-13.0) SEC INR (0.9-1.1) Sodium (135-145) mmol/L Potassium (3.3-5.1) mmol/L Chloride (96-108) mmol/L Carbon Dioxide (22-29) mmol/L Anion Gap (12-20) BUN (9-16) mg/dL Creatinine (0.5-1.4) mg/dL Estim Creat Clear Calc Estimated GFR POC Glucose 152 H (60-115) mg/dL Random Glucose (60-115) mg/dL Lactic Acid 2.4 H* (0.5-2.0) mmol/L Calcium (8.4-10.2) mg/dL Total Bilirubin (0.0-1.0) mg/dL Direct Bilirubin (0.0-0.5) mg/dL AST (5-31) U/L ALT (0-31) U/L Alkaline Phosphatase (39-117) U/L Total Protein (6.5-8.0) g/dL Albumin (3.5-5.0) g/dL Lipase (8-78) U/L Stool Occult Blood POSITIVE (NEGATIVE) ECG Data Attestation: I personally reviewed and interpreted this ECG as follows: Prior ECG tracings: available for review Interpretation: Ventricular paced rhythm, HR-71, no STEMI, no acute changes when compared to prior on 10/29/2021 Discharge Plan Discharge Clinical Impression: GI bleed, Sepsis, Acute UTI, Abdominal pain Patient Disposition: Still a Patient Prescriptions: No Action furosemide 40 mg tablet 40 mg PO DAILY 0RF clonazepam 1 mg tablet 1 mg PO BID PRN (Reason: Anxiety) 0RF paroxetine HCl 20 mg tablet 20 mg PO DAILY 0RF zolpidem 5 mg tablet 5 mg PO BEDTIME PRN (Reason: Sleep) 0RF calcium carbonate-vitamin D3 [Oystercal-D] 500 mg(1,250mg) -400 unit tablet 1 tab PO BID 0RF zinc 50 mg Tablet 50 mg PO DAILY 0RF albuterol sulfate [Ventolin HFA] 90 mcg/actuation HFA aerosol inhaler 2 puff inhalation Q4H PRN (Reason: Wheezing) 0RF doxycycline hyclate 100 mg capsule 100 mg PO BID Qty: 20 0RF prednisone 10 mg tablet See Rx Instructions .Route .COMPLEX Qty: 45 0RF Rx Instructions: 10 mg orally; 5 tabs p.o. daily x3 days; 4 tabs p.o. daily x3 days; 3 tabs daily x3 days; 2 tabs daily x3 days; 1 tab daily x3 days multivitamin Tablet 1 tab PO DAILY 0RF metoprolol succinate 50 mg tablet extended release 24 hr 100 mg PO DAILY 0RF Rx Instructions: IN THE MORNING melatonin 5 mg capsule 5 mg PO BEDTIME PRN (Reason: Sleep) 0RF apixaban 5 mg tablet 5 mg PO BID 0RF atorvastatin 10 mg tablet 10 mg PO DAILY 0RF ferrous sulfate 325 mg (65 mg iron) tablet 325 mg PO DAILY 0RF cholecalciferol (vitamin D3) 10 mcg (400 unit) capsule 10 mcg PO DAILY 0RF Prolia 60 mg/mL syringe 60 mg subcut [id number] Qty: 1 1RF (DME) Wheelchair See Rx Instructions .ROUTE .MEDSUPPLY Qty: 1 0RF Rx Instructions: with larger than standard size wheels
[2021-11-07] MEDS: ondansetron HCL 4 MG/2 ML VIAL IVPUSH ×4 (06:30→20:09)
[2021-11-07 06:31] LABS: MANUAL DIFF FLAG NO
[2021-11-07 06:32] LABS: Basophils Percent Auto 0.1 % (0-2); Hematocrit 44.6 % (37.0-47.0); Hemoglobin 14.6 g/dl (12.0-16.0); Imm Gran Abs Auto 0.26 X10*3/uL (0.00-0.03); Imm Gran Pct Auto 1.1 % (0.0-0.4); Lymphocytes Absolute Auto 2.3 X10*3/uL (1.2-4.9); Mean Corpuscular HGB Conc 32.7 g/dl (31.0-35.0); Mean Corpuscular Hemoglobin 28.8 pg (27.0-33.0); Mean Platelet Volume 9.2 fL (9.4-12.3); Monocytes Absolute Auto 1.4 X10*3/uL (0.1-1.2); Monocytes Percent Auto 6.2 % (2-11); Neutrophils Absolute Auto 18.9 x10*3/uL (2.0-8.3); Neutrophils Percent Auto 82.6 % (45-73); Platelet Count 350 X10*3/uL (160-400); Red Blood Count 5.07 X10*6/uL (4.20-5.50); Red Cell Distribution Width 13.2 % (11.0-16.0); White Blood Count 22.9 X10*3/uL (4.8-10.8)
[2021-11-07 06:34] LABS: OBS Int Ctl Valid YES; OBS1 POSITIVE (NEGATIVE)
[2021-11-07 06:40] LABS: INTERNATIONAL NORM RATIO 1.2 (0.9-1.1); Prothrombin Time 13.3 SEC (9.9-13.0)
[2021-11-07 06:49] LABS: Lactic Acid 2.4 mmol/L (0.5-2.0)
[2021-11-07 06:52] LABS: Alanine Aminotransferase 28 U/L (0-31); Albumin Level 3.7 g/dL (3.5-5.0); Alkaline Phosphatase 70 U/L (39-117); Anion Gap 19 (12-20); Aspartate Amino Transferase 30 U/L (5-31); Bilirubin Direct 0.3 mg/dL (0.0-0.5); Bilirubin Total 0.9 mg/dL (0.0-1.0); Blood Urea Nitrogen 28 mg/dL (9-16); Carbon Dioxide 32 mmol/L (22-29); Chloride 95 mmol/L (96-108); Creatinine Clr Calc Pharmacy 85.4; Estimated Glomerular Filt Rate > 60; Glucose Random 157 mg/dL (60-115); Lipase 8 U/L (8-78); Potassium 5.1 mmol/L (3.3-5.1); Sodium 141 mmol/L (135-145); Total Protein 7.2 g/dL (6.5-8.0)
--- NOTE | 2021-11-07 07:08 | PC.NURSE ---
RN aware of POC 152
[2021-11-07 07:22] LABS: Glucose, Whole Blood 152 mg/dL (60-115)
[2021-11-07 07:49] LABS: Magnesium 2.4 mg/dL (1.6-2.6)
[2021-11-07 08:00] VITALS: BP 131/70; PULSE 70; RESP 14; TEMP 36.8; O2SAT 95
[2021-11-07] MEDS: 0.9 % Sodium Chloride 1,000 ML 999 ML IV (08:01)
[2021-11-07] MEDS: Pantoprazole Sodium 40 MG/10 ML VIAL IVPUSH (08:02)
[2021-11-07] MEDS: iohexoL 350 MG/ML 100 ML INFUS..BTL IV (08:04)
[2021-11-07] MEDS: Piperacillin Sodium/Tazobactam 3.375 GM in 0.9 % Sodium Chloride 50 ML IV ×3 (08:26→21:33)
[2021-11-07 08:28] LABS: Reflex Lactate? Lactic Acid Added
--- NOTE | 2021-11-07 08:39 | PHA.MEDREC ---
Pharmacy Consult ? Medication Reconciliation Pharmacy has completed the medication reconciliation. Spoke to pt' daughter Soheila, no remarkable issues. Purnima Dutta, JonD
[2021-11-07] MEDS: Morphine Sulfate 2 MG/ML CARTRIDGE 1 MG IVPUSH (08:55)
[2021-11-07 08:58] LABS: COVID-19 Test Negative (Negative)
[2021-11-07 09:14] LABS: Appearance Urine CLOUDY; Color Urine YELLOW; Glucose Urine UA NEG (NEG); Leukocyte Esterase Urine NEG (NEG); Nitrite Urine NEG (NEG); Urine Blood NEG (NEG); Urine Ketones NEG (NEG); Urine Protein NEG (NEG-TRACE)
[2021-11-07 09:22] LABS: ~Lactic Acid-LAB USE ONLY 1.6 mmol/L (0.5-2.0)
[2021-11-07 09:59] VITALS: BP 141/90; PULSE 69; RESP 16; TEMP 37.1; O2SAT 96
[2021-11-07] MEDS: cefTRIAXone sodium 1 GM in 0.9 % Sodium Chloride 50 ML IV (10:09)
[2021-11-07] MEDS: Morphine Sulfate 2 MG/ML CARTRIDGE IVPUSH (10:32)
[2021-11-07] MEDS: Dextrose 5 % and 0.45 % NaCl 1,000 ML 100 ML IVCONT ×2 (11:42→19:57)
--- NOTE | 2021-11-07 15:02 | PM.IMHP ---
History of Present Illness Date of Service: 11/07/21 Chief Complaint: abdominal pain 70-year-old female recently admitted t0 [facility] 10/29/21 through 11/02/2021 for COPD exacerbation presents today with approximately 24-36 hours of persistent vomiting accompanied by left lower quadrant abdominal pain. She states she questioned whether some of the vomitus contained blood. She denies fever chills. States breathing is back to baseline Review of Systems Review of Systems: Denies chest pain States shortness of breath has improved Admits to left lower quadrant abdominal pain worse with vomiting Denies diarrhea PMFSH Medical History Afib Anxiety Aortic stenosis Asthma Closed right hip fracture Depression Fracture of hip GERD (gastroesophageal reflux disease) Myocardial infarction Normocytic anemia Osteoporosis Pacemaker Family History Other No family history of coronary artery disease Surgical History H/O: hysterectomy Status post right knee replacement Social History Household Members: Family Housing: Apartment Do you presently have visiting nurse or other home services: No Alcohol intake: never Patient Tobacco Use Status: Current everyday Tobacco user Cigarette Packs Per Day: 0.25 Cigarettes Per Day: 4 Years Smoked: 55 Advance Directives: Yes Advance Directives on File: Yes Advance Directives Date on File: 08/28/20 service: No Current occupational status: retired Meds Allergies Allergy/AdvReac Type Severity Reaction Status Date / Time azithromycin Allergy Rash Verified 10/31/21 07:27 tramadol Allergy Vomiting Verified 10/29/21 23:19 Sulfa (Sulfonamide AdvReac Intermediate VOMITING Verified 05/07/21 08:12 Antibiotics) [SULFA(SULFONAMIDE ANTIBIOTICS)] Active Medications: Current Medications Albuterol Sulfate (Albuterol Sulfate 90 Mcg 8 Gm Inhaler) 2 puff INHALE Q4H PRN PRN Reason: Wheezing Apixaban (Apixaban 5 Mg Tablet) 5 mg PO BID RON Atorvastatin Calcium (Atorvastatin Calcium 10 Mg Tablet) 10 mg PO DAILY RON Calcium Carbonate/Cholecalciferol (Calcium + Vitamin D 250 Mg Tablet) 500 mg PO BID RON Clonazepam (Clonazepam 1 Mg Tablet) 1 mg PO BID PRN PRN Reason: Anxiety Ferrous Sulfate (Ferrous Sulfate 324 Mg Tablet.Dr) 324 mg PO DAILY RON Furosemide (Furosemide 40 Mg Tablet) 40 mg PO DAILY RON; Protocol Dextrose/Sodium Chloride (D51/2ns) 1,000 mls @ 100 mls/hr IVCONT .Q10H RON Last Admin: 11/07/21 11:42 Dose: 100 mls/hr Documented by: Piperacillin Sod/Tazobactam (Sod 3.375 gm/ Sodium Chloride) 50 mls @ 100 mls/hr IV Q6H RON Melatonin (Melatonin 3 Mg Tablet) 6 mg PO BEDTIME PRN PRN Reason: Sleep Metoprolol Succinate (Metoprolol Succinate Er 100 Mg Tab.Er.24h) 100 mg PO DAILY RON; Protocol Multivitamins/Vitamin C (Multivitamin Tablet) 1 tab PO DAILY [facility] Ondansetron HCl (Ondansetron Hcl 4 Mg/2 Ml Vial) 4 mg IVPUSH Q4H PRN PRN Reason: Nausea and Vomiting Last Admin: 11/07/21 10:32 Dose: 4 mg Documented by: Paroxetine HCl (Paroxetine Hcl 20 Mg Tablet) 20 mg PO DAILY [facility] Pharmacy Consult (Consult Rx Perform Med Rec) 1 each MISCELLANE ONCE PRN PRN Reason: Consult order Pharmacy Consult (Consult Rx Perform Med Rec) 1 each MISCELLANE ONCE PRN PRN Reason: Consult order Sodium Chloride (0.9 % Sodium Chloride Flush 3 Ml Syringe) 3 ml IVFLUSH QSHIFT [facility] Zolpidem Tartrate (Zolpidem Tartrate 5 Mg Tablet) 5 mg PO BEDTIME PRN PRN Reason: Sleep Home Medications Medication Instructions Recorded Confirmed Last Taken Type apixaban 5 mg tablet 5 mg PO BID 07/21/20 11/07/21 11/06/21 History atorvastatin 10 mg tablet 10 mg PO DAILY 07/21/20 11/07/21 11/06/21 History ferrous sulfate 325 mg (65 mg 325 mg PO DAILY 07/21/20 11/07/21 11/06/21 History iron) tablet melatonin 5 mg capsule 5 mg PO BEDTIME PRN 07/21/20 11/07/21 08/27/20 History metoprolol succinate 50 mg 100 mg PO DAILY 07/21/20 11/07/21 08/27/20 History tablet,extended release 24 hr multivitamin 1 tab PO DAILY 07/21/20 11/07/21 11/06/21 History calcium carbonate 500 mg-vitamin 1 tab PO BID 08/28/20 11/07/21 11/06/21 History D3 10 mcg (400 unit) tablet (Oystercal-D) clonazepam 1 mg tablet 1 mg PO BID PRN 08/28/20 11/07/21 08/27/20 History furosemide 40 mg tablet 40 mg PO DAILY 08/28/20 11/07/21 11/06/21 History paroxetine HCl 20 mg tablet 20 mg PO DAILY 08/28/20 11/07/21 11/06/21 History zinc 50 mg tablet 50 mg PO DAILY 08/28/20 11/07/21 11/06/21 History zolpidem 5 mg tablet 5 mg PO BEDTIME PRN 08/28/20 11/07/21 Unknown History albuterol sulfate 90 mcg/actuation 2 puff INHALATION Q4H PRN 10/29/21 11/07/21 Unknown History aerosol inhaler (Ventolin HFA) denosumab 60 mg/mL subcutaneous 1 ml SUBCUT Q6M 11/07/21 11/07/21 05/12/21 History syringe (Prolia) Physical Exam Vital Signs and Narrative: Vital Signs: Last Vital Signs Temp 98.8 F 11/07/21 09:59 Pulse 69 11/07/21 09:59 Resp 16 11/07/21 09:59 BP 141/90 H 11/07/21 09:59 Pulse Ox 96 11/07/21 09:59 BMI result Body Mass Index 37.7 Const: Other: Ill-appearing female in no acute distress HENMT: Other: Membranes dry Resp: Other: Clear to auscultation bilaterally. No rales rhonchi or wheezes Cardio: Other: No S4; positive S1-S2; no S3 murmurs or gallops GI: Other: Soft/tender left lower quadrant; mild guarding no rebound. Bowel sounds quiet Neuro: Other: Cranial nerves 2-12 grossly intact as tested. Motor is 5/5 all extremities. Sensation intact. Cognition appropriate Extrem: Other: No edema bilaterally Results Labs CBC and Chem 7: 11/07/21 06:22 11/07/21 06:22 Labs: Laboratory Results - last 24 hr 11/07/21 11/07/21 11/07/21 06:22 06:22 06:22 MCV 88.0 MCH 28.8 MCHC 32.7 RDW 13.2 Plt Count 350 MPV 9.2 L Immature Gran % (Auto) 1.1 H Neut % (Auto) 82.6 H Lymph % (Auto) 10.0 L Lake % (Auto) 6.2 Eos % (Auto) 0.0 Baso % (Auto) 0.1 Lymph # (Auto) 2.3 Lake # (Auto) 1.4 H Eos # (Auto) 0.0 Baso # (Auto) 0.0 Abs Immat Gran (auto) 0.26 H Absolute Neuts (auto) 18.9 H Absolute Nucleated RBC 0.000 Nucleated RBC % (auto) 0.0 PT 13.3 H INR 1.2 H Anion Gap 19 Estim Creat Clear Calc 85.4 Estimated GFR > 60 POC Glucose Random Glucose 157 H Lactic Acid Lactic Acid F/U @ 2Hr Calcium 9.0 Magnesium 2.4 Total Bilirubin 0.9 Direct Bilirubin 0.3 AST 30 D ALT 28 Alkaline Phosphatase 70 Total Protein 7.2 Albumin 3.7 Lipase 8 Urine Color Urine Appearance Urine pH Ur Specific [place] Urine Protein Urine Glucose (UA) Urine Ketones Urine Blood Urine Nitrite Ur Leukocyte Esterase Stool Occult Blood COVID-19 (ROBERT) COVID-19 [place] Com Blood Type Antibody Screen 11/07/21 11/07/21 11/07/21 06:22 06:22 06:24 MCV MCH MCHC RDW Plt Count MPV Immature Gran % (Auto) Neut % (Auto) Lymph % (Auto) Lake % (Auto) Eos % (Auto) Baso % (Auto) Lymph # (Auto) Lake # (Auto) Eos # (Auto) Baso # (Auto) Abs Immat Gran (auto) Absolute Neuts (auto) Absolute Nucleated RBC Nucleated RBC % (auto) PT INR Anion Gap Estim Creat Clear Calc Estimated GFR POC Glucose Random Glucose Lactic Acid 2.4 H* Lactic Acid F/U @ 2Hr Calcium Magnesium Total Bilirubin Direct Bilirubin AST ALT Alkaline Phosphatase Total Protein Albumin Lipase Urine Color Urine Appearance Urine pH Ur Specific [place] Urine Protein Urine Glucose (UA) Urine Ketones Urine Blood Urine Nitrite Ur Leukocyte Esterase Stool Occult Blood POSITIVE COVID-19 (ROBERT) COVID-19 [place] Com Blood Type A Positive Antibody Screen NEGATIVE 11/07/21 11/07/2122 07:06 08:24 09:06 MCV MCH MCHC RDW Plt Count MPV Immature Gran % (Auto) Neut % (Auto) Lymph % (Auto) Lake % (Auto) Eos % (Auto) Baso % (Auto) Lymph # (Auto) Lake # (Auto) Eos # (Auto) Baso # (Auto) Abs Immat Gran (auto) Absolute Neuts (auto) Absolute Nucleated RBC Nucleated RBC % (auto) PT INR Anion Gap Estim Creat Clear Calc Estimated GFR POC Glucose 152 H Random Glucose Lactic Acid Lactic Acid F/U @ 2Hr Calcium Magnesium Total Bilirubin Direct Bilirubin AST ALT Alkaline Phosphatase Total Protein Albumin Lipase Urine Color YELLOW Urine Appearance CLOUDY Urine pH 8.0 Ur Specific [place] 1.010 Urine Protein NEG Urine Glucose (UA) NEG Urine Ketones NEG Urine Blood NEG Urine Nitrite NEG Ur Leukocyte Esterase NEG Stool Occult Blood COVID-19 (ROBERT) Negative COVID-19 Clin Com See Note Blood Type Antibody Screen 11/07/21 09:06 MCV MCH MCHC RDW Plt Count MPV Immature Gran % (Auto) Neut % (Auto) Lymph % (Auto) Lake % (Auto) Eos % (Auto) Baso % (Auto) Lymph # (Auto) Lake # (Auto) Eos # (Auto) Baso # (Auto) Abs Immat Gran (auto) Absolute Neuts (auto) Absolute Nucleated RBC Nucleated RBC % (auto) PT INR Anion Gap Estim Creat Clear Calc Estimated GFR POC Glucose Random Glucose Lactic Acid Lactic Acid F/U @ 2Hr 1.6 Calcium Magnesium Total Bilirubin Direct Bilirubin AST ALT Alkaline Phosphatase Total Protein Albumin Lipase Urine Color Urine Appearance Urine pH Ur Specific [place] Urine Protein Urine Glucose (UA) Urine Ketones Urine Blood Urine Nitrite Ur Leukocyte Esterase Stool Occult Blood COVID-19 (ROBERT) COVID-19 Clin Com Blood Type Antibody Screen Imaging Radiologist's Impressions: Impressions Abdomen/Pelvis CT 11/07/21 08:00 IMPRESSION: No evidence of active GI bleeding. Diverticulosis of the colon. No evidence of diverticulitis. Question mild wall thickening or colitis of the distal colon. Fluid-filled distended stomach and esophagus. Large esophageal hernia which appears to represent a paraesophageal hernia containing the distal stomach. Fatty liver. Spleen and right renal cysts. Assessment and Plan (1) Colitis: Status: Acute (2) Afib: Status: Acute (3) COPD (chronic obstructive pulmonary disease): Status: Acute Plan 70-year-old female with known history of COPD recently admitted for same presents with 24-36 hours of vomiting and lower abdominal pain. Workup in the ER consistent with a leukocytosis that has been ongoing and CT scan that showed mild wall thickening of the distal colon consistent with colitis. Should be admitted for treatment of the same 1. Colitis in the absence of a diverticulitis -admit..clear liquid diet/IVFs -pain control with MS04 -cover with Pip/Tazo -advance diet as tolerated 2. COPD -improved since last admit -stop steroids give ABD pathology -prn nebs 3.Chronic Atrial Fibrilation -rate control adequte -continue current therapies including apixaban -adjust as indicated Full Code Apixaban Quality Stroke Does the patient have a stroke diagnosis?: No VTE Prior VTE?: No VTE Risk Level:: Medical - moderate - high VTE Device Contraindication: Treatment Not Indicated VTE Drug Contraindication: N/A - Med Ordered
--- NOTE | 2021-11-07 15:33 | MHC.CM.PN ---
met with pt in ed pt reports livng with her dgter and best friend pt is not vaccinated imm signed and placed on ed chart pt hAS A HCP ON FILE does not have any servceis except thru [facility] dc plan carol ann major
[2021-11-07 18:41] VITALS: BP 117/61; PULSE 70; RESP 14; TEMP 36.7; O2SAT 96
--- NOTE | 2021-11-07 19:55 | PC.NURSE ---
report to TOBIN Londono. pt awaiting for transport to floor. pt in NAD. IV flushes easily without difficulty.
[2021-11-07 21:22] VITALS: BP 131/63; PULSE 70; RESP 18; TEMP 35.8; O2SAT 99
[2021-11-07] MEDS: Calcium + Vitamin D 250 MG TABLET 500 MG PO (21:29)
[2021-11-07] MEDS: Zolpidem Tartrate 5 MG TABLET PO (21:29)
[2021-11-07] MEDS: clonazePAM 1 MG TABLET PO (21:29)
[2021-11-07] MEDS: Apixaban 5 MG TABLET PO (21:30)
[2021-11-07 23:52] VITALS: BP 137/81; PULSE 70; RESP 16; TEMP 36.4
[2021-11-08] MEDS: Morphine Sulfate 2 MG/ML CARTRIDGE 1 MG IVPUSH ×3 (02:53→15:00)
[2021-11-08] MEDS: Dextrose 5 % and 0.45 % NaCl 1,000 ML 100 ML IVCONT ×2 (03:45→14:05)
[2021-11-08 03:46] VITALS: BP 133/68; PULSE 70; RESP 20; TEMP 36.9; O2SAT 97
[2021-11-08] MEDS: Piperacillin Sodium/Tazobactam 3.375 GM in 0.9 % Sodium Chloride 50 ML IV ×4 (04:16→21:11)
[2021-11-08 05:44] LABS: MANUAL DIFF FLAG NO
[2021-11-08 05:50] LABS: Basophils Percent Auto 0.1 % (0-2); Eosinophils Absolute Auto 0.1 X10*3/uL (0.0-0.4); Eosinophils Percent Auto 0.7 % (0-4); Hematocrit 34.6 % (37.0-47.0); Hemoglobin 11.3 g/dl (12.0-16.0); Imm Gran Abs Auto 0.16 X10*3/uL (0.00-0.03); Imm Gran Pct Auto 0.8 % (0.0-0.4); Lymphocytes Absolute Auto 2.3 X10*3/uL (1.2-4.9); Lymphocytes Percent Auto 11.8 % (20-40); Mean Corpuscular HGB Conc 32.7 g/dl (31.0-35.0); Mean Corpuscular Hemoglobin 29.5 pg (27.0-33.0); Mean Corpuscular Volume 90.3 fL (80.0-98.0); Mean Platelet Volume 9.4 fL (9.4-12.3); Monocytes Absolute Auto 1.1 X10*3/uL (0.1-1.2); Monocytes Percent Auto 5.9 % (2-11); Neutrophils Absolute Auto 15.6 x10*3/uL (2.0-8.3); Neutrophils Percent Auto 80.7 % (45-73); Platelet Count 254 X10*3/uL (160-400); Red Blood Count 3.83 X10*6/uL (4.20-5.50); Red Cell Distribution Width 13.2 % (11.0-16.0); White Blood Count 19.3 X10*3/uL (4.8-10.8)
[2021-11-08 06:23] LABS: Alanine Aminotransferase 19 U/L (0-31); Albumin Level 2.9 g/dL (3.5-5.0); Alkaline Phosphatase 53 U/L (39-117); Anion Gap 13 (12-20); Aspartate Amino Transferase 13 U/L (5-31); Blood Urea Nitrogen 23 mg/dL (9-16); Calcium 8.1 mg/dL (8.4-10.2); Carbon Dioxide 27 mmol/L (22-29); Chloride 100 mmol/L (96-108); Creatinine Clr Calc Pharmacy 96.1; Estimated Glomerular Filt Rate > 60; Glucose Fasting 148 mg/dL (60-99); Potassium 3.7 mmol/L (3.3-5.1); Sodium 136 mmol/L (135-145); Total Protein 5.2 g/dL (6.5-8.0)
[2021-11-08 07:26] VITALS: BP 127/64; PULSE 78; RESP 20; TEMP 36.2; O2SAT 98
[2021-11-08] MEDS: Apixaban 5 MG TABLET PO ×2 (08:59→21:11)
[2021-11-08] MEDS: Furosemide 40 MG TABLET PO (08:59)
[2021-11-08] MEDS: Ferrous Sulfate 324 MG TABLET.DR PO (08:59)
[2021-11-08] MEDS: Atorvastatin Calcium 10 MG TABLET PO (08:59)
[2021-11-08] MEDS: 0.9 % Sodium Chloride Flush 3 ML SYRINGE IVFLUSH ×3 (08:59→21:11)
[2021-11-08] MEDS: Calcium + Vitamin D 250 MG TABLET 500 MG PO ×2 (08:59→21:11)
[2021-11-08] MEDS: PARoxetine HCL 20 MG TABLET PO (08:59)
[2021-11-08] MEDS: Multivitamin TABLET 1 TAB PO (08:59)
[2021-11-08] MEDS: Metoprolol Succinate ER 100 MG TAB.ER.24H PO (08:59)
[2021-11-08] MEDS: ondansetron HCL 4 MG/2 ML VIAL IVPUSH ×2 (09:09→14:01)
[2021-11-08 11:53] VITALS: BP 87/51; PULSE 70; RESP 20; TEMP 36.5; O2SAT 92
--- NOTE | 2021-11-08 12:21 | MHC.CLN ---
NUTRITION CONSULT FOR POOR APPETITE. VISITED WITH PATIENT WITH DAUGHTER PRESENT. CURRENT INTAKE LIMITED DUE TO CLEAR LIQUID DIET WITH COLITIS. INTAKE AT HOME USUALLY VERY GOOD WITH NO REPORTED CONCERNS WITH INTAKE OR APPETITE. NO ADDITIONAL NUTRITION INTERVENTIONS AT THIS TIME.
--- NOTE | 2021-11-08 12:58 | P.PNIM_ITS ---
Subjective Subjective Date of Service: 11/08/21 Interval History: States bili pain improved but still present. Tolerating clear liquid diet Review of Systems Denies chest pain Denies shortness of breath Denies nausea vomiting diarrhea Admits to left lower quadrant abdominal pain that has improved Physical Exam Vital Signs: Vital Signs: Last Vital Signs Temp 97.7 F 11/08/21 11:53 Pulse 70 11/08/21 11:53 Resp 20 11/08/21 11:53 BP 87/51 L 11/08/21 11:53 Pulse Ox 92 11/08/21 11:53 BMI result Body Mass Index 37.7 Const: Other: Ill-appearing female in no acute distress HENMT: Other: Membranes dry Resp: Other: Clear to auscultation bilaterally. No rales rhonchi or wheezes Cardio: Other: No S4; positive S1-S2; no S3 murmurs or gallops GI: Other: Soft/tender left lower quadrant; no guarding no rebound. Bowel sounds quiet Neuro: Other: Cranial nerves 2-12 grossly intact as tested. Motor is 5/5 all extremities. Sensation intact. Cognition appropriate Extrem: Other: No edema bilaterally Objective Data Active Medications Albuterol Sulfate (Albuterol Sulfate 90 Mcg 8 Gm Inhaler) 2 puff INHALE Q4H PRN PRN Reason: Wheezing Apixaban (Apixaban 5 Mg Tablet) 5 mg PO BID [facility] Last Admin: 11/08/21 08:59 Dose: 5 mg Documented by: MARIBETH Atorvastatin Calcium (Atorvastatin Calcium 10 Mg Tablet) 10 mg PO DAILY [facility] Last Admin: 11/08/21 08:59 Dose: 10 mg Documented by: MARIBETH Calcium Carbonate/Cholecalciferol (Calcium + Vitamin D 250 Mg Tablet) 500 mg PO BID [facility] Last Admin: 11/08/21 08:59 Dose: 500 mg Documented by: MARIBETH Clonazepam (Clonazepam 1 Mg Tablet) 1 mg PO BID PRN PRN Reason: Anxiety Last Admin: 11/07/21 21:29 Dose: 1 mg Documented by: SCOTT Ferrous Sulfate (Ferrous Sulfate 324 Mg Tablet.) 324 mg PO DAILY [facility] Last Admin: 11/08/21 08:59 Dose: 324 mg Documented by: MARIBETH Furosemide (Furosemide 40 Mg Tablet) 40 mg PO DAILY [facility]; Protocol Last Admin: 11/08/21 08:59 Dose: 40 mg Documented by: MARIBETH Dextrose/Sodium Chloride (D51/2ns) 1,000 mls @ 100 mls/hr IVCONT .Q10H [facility] Last Infusion: 11/08/21 12:14 Dose: 100 mls/hr Documented by: MARIBETH Piperacillin Sod/Tazobactam (Sod 3.375 gm/ Sodium Chloride) 50 mls @ 100 mls/hr IV Q6H [facility] Last Infusion: 11/08/21 11:36 Dose: 0 mls/hr Documented by: MARIBETH Melatonin (Melatonin 3 Mg Tablet) 6 mg PO BEDTIME PRN PRN Reason: Sleep Metoprolol Succinate (Metoprolol Succinate Er 100 Mg Tab.Er.24h) 100 mg PO DAILY [facility]; Protocol Last Admin: 11/08/21 08:59 Dose: 100 mg Documented by: MARIBETH Morphine Sulfate (Morphine Sulfate 2 Mg/Ml Cartridge) 1 mg IVPUSH Q6H PRN; Protocol PRN Reason: Breakthrough Pain Last Admin: 11/08/21 08:58 Dose: 1 mg Documented by: MARIBETH Multivitamins/Vitamin C (Multivitamin Tablet) 1 tab PO DAILY [facility] Last Admin: 11/08/21 08:59 Dose: 1 tab Documented by: MARIBETH Ondansetron HCl (Ondansetron Hcl 4 Mg/2 Ml Vial) 4 mg IVPUSH Q4H PRN PRN Reason: Nausea and Vomiting Last Admin: 11/08/21 09:09 Dose: 4 mg Documented by: MARIBETH Paroxetine HCl (Paroxetine Hcl 20 Mg Tablet) 20 mg PO DAILY [facility] Last Admin: 11/08/21 08:59 Dose: 20 mg Documented by: MARIBETH Pharmacy Consult (Consult Rx Perform Med Rec) 1 each MISCELLANE ONCE PRN PRN Reason: Consult order Pharmacy Consult (Consult Rx Perform Med Rec) 1 each MISCELLANE ONCE PRN PRN Reason: Consult order Sodium Chloride (0.9 % Sodium Chloride Flush 3 Ml Syringe) 3 ml IVFLUSH QSHIFT [facility] Last Admin: 11/08/21 08:59 Dose: 3 ml Documented by: MARIBETH Zolpidem Tartrate (Zolpidem Tartrate 5 Mg Tablet) 5 mg PO BEDTIME PRN PRN Reason: Sleep Last Admin: 11/07/21 21:29 Dose: 5 mg Documented by: SALVADORQC Labs CBC & Chem 7: 11/08/21 05:17 11/08/21 05:17 Labs: Laboratory Results - last 24 hr 11/08/21 11/08/21 05:17 05:17 MCV 90.3 MCH 29.5 MCHC 32.7 RDW 13.2 Plt Count 254 D MPV 9.4 Immature Gran % (Auto) 0.8 H Neut % (Auto) 80.7 H Lymph % (Auto) 11.8 L [place] % (Auto) 5.9 Eos % (Auto) 0.7 Baso % (Auto) 0.1 Lymph # (Auto) 2.3 [place]are # (Auto) 1.1 Eos # (Auto) 0.1 Baso # (Auto) 0.0 Abs Immat Gran (auto) 0.16 H Absolute Neuts (auto) 15.6 H Absolute Nucleated RBC 0.000 Nucleated RBC % (auto) 0.0 Anion Gap 13 Estim Creat Clear Calc 96.1 Estimated GFR > 60 Fasting Glucose 148 H Calcium 8.1 L D Total Bilirubin 1.0 AST 13 D ALT 19 Alkaline Phosphatase 53 D Total Protein 5.2 L D Albumin 2.9 L D Microbiology Microbiology Results: Microbiology 11/07/21 08:20 Blood Culture - Preliminary Blood - Venous No growth after 24 hours. 11/07/21 06:22 Blood Culture - Preliminary Blood - Venous No growth after 24 hours. Assessment and Plan (1) Colitis: Status: Acute (2) COPD (chronic obstructive pulmonary disease): Status: Acute (3) Afib: Status: Acute Plan 70-year-old female with known history of COPD recently admitted for same presents with 24-36 hours of vomiting and lower abdominal pain. Workup in the ER consistent with a leukocytosis that has been ongoing and CT scan that showed mild wall thickening of the distal colon consistent with colitis. Should be admitted for treatment of the same 1. Colitis in the absence of a diverticulitis -advance diet to full liquid; continue IV fluids until stable diet -pain control with MS04 -cover with Pip/Tazo 2. COPD -improved since last admit -stop steroids give ABD pathology -prn nebs 3.Chronic Atrial Fibrilation -rate control adequte -continue current therapies including apixaban -adjust as indicated Full Code Apixaban Quality Stroke Does the patient have a stroke diagnosis?: No VTE Prior VTE?: No VTE Risk Level:: Medical - moderate - high VTE Device Contraindication: Treatment Not Indicated VTE Drug Contraindication: N/A - Med Ordered
[2021-11-08 15:39] VITALS: BP 99/61; PULSE 72; RESP 18; TEMP 36.1; O2SAT 93
[2021-11-08 19:20] VITALS: BP 100/62; PULSE 87; RESP 18; TEMP 36.1; O2SAT 95
[2021-11-08] MEDS: clonazePAM 1 MG TABLET PO (21:11)
[2021-11-08] MEDS: Zolpidem Tartrate 5 MG TABLET PO (21:11)
[2021-11-08 23:26] VITALS: BP 96/65; PULSE 72; RESP 15; TEMP 36.8; O2SAT 95
[2021-11-09] MEDS: Dextrose 5 % and 0.45 % NaCl 1,000 ML 100 ML IVCONT ×2 (01:23→14:45)
[2021-11-09 03:05] VITALS: BP 92/59; PULSE 72; RESP 14; TEMP 36.5; O2SAT 95
[2021-11-09] MEDS: Piperacillin Sodium/Tazobactam 3.375 GM in 0.9 % Sodium Chloride 50 ML IV ×4 (04:13→21:25)
[2021-11-09 06:20] LABS: MANUAL DIFF FLAG NO
[2021-11-09 06:30] LABS: Basophils Percent Auto 0.1 % (0-2); Eosinophils Absolute Auto 0.4 X10*3/uL (0.0-0.4); Eosinophils Percent Auto 3.1 % (0-4); Hematocrit 31.8 % (37.0-47.0); Hemoglobin 10.3 g/dl (12.0-16.0); Imm Gran Pct Auto 0.7 % (0.0-0.4); Lymphocytes Absolute Auto 2.9 X10*3/uL (1.2-4.9); Lymphocytes Percent Auto 20.7 % (20-40); Mean Corpuscular HGB Conc 32.4 g/dl (31.0-35.0); Mean Corpuscular Hemoglobin 29.2 pg (27.0-33.0); Mean Corpuscular Volume 90.1 fL (80.0-98.0); Mean Platelet Volume 9.5 fL (9.4-12.3); Monocytes Percent Auto 6.8 % (2-11); Neutrophils Absolute Auto 9.6 x10*3/uL (2.0-8.3); Neutrophils Percent Auto 68.6 % (45-73); Platelet Count 202 X10*3/uL (160-400); Red Blood Count 3.53 X10*6/uL (4.20-5.50); Red Cell Distribution Width 13.2 % (11.0-16.0)
[2021-11-09 06:57] LABS: Alanine Aminotransferase 16 U/L (0-31); Albumin Level 2.9 g/dL (3.5-5.0); Alkaline Phosphatase 52 U/L (39-117); Anion Gap 8 (12-20); Aspartate Amino Transferase 13 U/L (5-31); Blood Urea Nitrogen 13 mg/dL (9-16); Carbon Dioxide 30 mmol/L (22-29); Chloride 101 mmol/L (96-108); Creatinine Clr Calc Pharmacy 92.2; Estimated Glomerular Filt Rate > 60; Glucose Fasting 124 mg/dL (60-99); Potassium 3.3 mmol/L (3.3-5.1); Sodium 136 mmol/L (135-145); Total Protein 4.9 g/dL (6.5-8.0)
[2021-11-09 07:53] VITALS: BP 99/51; PULSE 68; RESP 18; TEMP 37; O2SAT 94
[2021-11-09] MEDS: Calcium + Vitamin D 250 MG TABLET 500 MG PO ×2 (09:29→21:25)
[2021-11-09] MEDS: PARoxetine HCL 20 MG TABLET PO (09:29)
[2021-11-09] MEDS: Ferrous Sulfate 324 MG TABLET.DR PO (09:29)
[2021-11-09] MEDS: Atorvastatin Calcium 10 MG TABLET PO (09:29)
[2021-11-09] MEDS: Apixaban 5 MG TABLET PO ×2 (09:30→21:25)
[2021-11-09] MEDS: Multivitamin TABLET 1 TAB PO (09:30)
[2021-11-09] MEDS: Furosemide 40 MG TABLET PO (09:30)
[2021-11-09] MEDS: Metoprolol Succinate ER 100 MG TAB.ER.24H PO (09:30)
--- NOTE | 2021-11-09 10:01 | HO.PM.IMPN ---
Subjective Subjective Date of Service: 11/09/21 Interval History: States bili pain improved but still present. Tolerating clear liquid diet Review of Systems Denies chest pain Denies shortness of breath Denies nausea vomiting diarrhea Admits to left lower quadrant abdominal pain that has improved Physical Exam Vital Signs: Vital Signs: Last Vital Signs Temp 98.6 F 11/09/21 07:53 Pulse 68 11/09/21 07:53 Resp 18 11/09/21 07:53 BP 99/51 L 11/09/21 07:53 Pulse Ox 94 11/09/21 07:53 BMI result Body Mass Index 37.7 Const: Other: Ill-appearing female in no acute distress HENMT: Other: Membranes dry Resp: Other: Clear to auscultation bilaterally. No rales rhonchi or wheezes Cardio: Other: No S4; positive S1-S2; no S3 murmurs or gallops GI: Other: Soft/tender left lower quadrant; no guarding no rebound. Bowel sounds quiet Neuro: Other: Cranial nerves 2-12 grossly intact as tested. Motor is 5/5 all extremities. Sensation intact. Cognition appropriate Extrem: Other: No edema bilaterally Objective Data Active Medications Albuterol Sulfate (Albuterol Sulfate 90 Mcg 8 Gm Inhaler) 2 puff INHALE Q4H PRN PRN Reason: Wheezing Apixaban (Apixaban 5 Mg Tablet) 5 mg PO BID [facility] Last Admin: 11/09/21 09:30 Dose: 5 mg Documented by: AMANDA Atorvastatin Calcium (Atorvastatin Calcium 10 Mg Tablet) 10 mg PO DAILY [facility] Last Admin: 11/09/21 09:29 Dose: 10 mg Documented by: AMANDA Calcium Carbonate/Cholecalciferol (Calcium + Vitamin D 250 Mg Tablet) 500 mg PO BID [facility] Last Admin: 11/09/21 09:29 Dose: 500 mg Documented by: AMANDA Clonazepam (Clonazepam 1 Mg Tablet) 1 mg PO BID PRN PRN Reason: Anxiety Last Admin: 11/08/21 21:11 Dose: 1 mg Documented by: PHOENIX Ferrous Sulfate (Ferrous Sulfate 324 Mg Tablet.) 324 mg PO DAILY [facility] Last Admin: 11/09/21 09:29 Dose: 324 mg Documented by: AMANDA Furosemide (Furosemide 40 Mg Tablet) 40 mg PO DAILY [facility]; Protocol Last Admin: 11/09/21 09:30 Dose: 40 mg Documented by: AMANDA Dextrose/Sodium Chloride (D51/2ns) 1,000 mls @ 100 mls/hr IVCONT .Q10H [facility] Last Admin: 11/09/21 01:23 Dose: 100 mls/hr Documented by: PHOENIX Piperacillin Sod/Tazobactam (Sod 3.375 gm/ Sodium Chloride) 50 mls @ 100 mls/hr IV Q6H [facility] Last Admin: 11/09/21 09:28 Dose: 100 mls/hr Documented by: AMANDA Melatonin (Melatonin 3 Mg Tablet) 6 mg PO BEDTIME PRN PRN Reason: Sleep Metoprolol Succinate (Metoprolol Succinate Er 100 Mg Tab.Er.24h) 100 mg PO DAILY [facility]; Protocol Last Admin: 11/09/21 09:30 Dose: 100 mg Documented by: AMANDA Morphine Sulfate (Morphine Sulfate 2 Mg/Ml Cartridge) 1 mg IVPUSH Q6H PRN; Protocol PRN Reason: Breakthrough Pain Last Admin: 11/08/21 15:00 Dose: 1 mg Documented by: MARIBETH Multivitamins/Vitamin C (Multivitamin Tablet) 1 tab PO DAILY [facility] Last Admin: 11/09/21 09:30 Dose: 1 tab Documented by: AMANDA Ondansetron HCl (Ondansetron Hcl 4 Mg/2 Ml Vial) 4 mg IVPUSH Q4H PRN PRN Reason: Nausea and Vomiting Last Admin: 11/08/21 14:01 Dose: 4 mg Documented by: MARIBETH Paroxetine HCl (Paroxetine Hcl 20 Mg Tablet) 20 mg PO DAILY [facility] Last Admin: 11/09/21 09:29 Dose: 20 mg Documented by: AMANDA Pharmacy Consult (Consult Rx Perform Med Rec) 1 each MISCELLANE ONCE PRN PRN Reason: Consult order Pharmacy Consult (Consult Rx Perform Med Rec) 1 each MISCELLANE ONCE PRN PRN Reason: Consult order Sodium Chloride (0.9 % Sodium Chloride Flush 3 Ml Syringe) 3 ml IVFLUSH QSHIFT [facility] Last Admin: 11/09/21 09:13 Dose: Not Given Documented by: AMANDA Non-Admin Reason: IV Running Zolpidem Tartrate (Zolpidem Tartrate 5 Mg Tablet) 5 mg PO BEDTIME PRN PRN Reason: Sleep Last Admin: 11/08/21 21:11 Dose: 5 mg Documented by: PHOENIX Labs CBC & Chem 7: 11/09/21 05:27 11/09/21 05:27 Labs: Laboratory Results - last 24 hr 11/09/21 11/09/21 05:27 05:27 MCV 90.1 MCH 29.2 MCHC 32.4 RDW 13.2 Plt Count 202 MPV 9.5 Immature Gran % (Auto) 0.7 H Neut % (Auto) 68.6 Lymph % (Auto) 20.7 [place] % (Auto) 6.8 Eos % (Auto) 3.1 Baso % (Auto) 0.1 Lymph # (Auto) 2.9 [place] # (Auto) 1.0 Eos # (Auto) 0.4 Baso # (Auto) 0.0 Abs Immat Gran (auto) 0.10 H Absolute Neuts (auto) 9.6 H Absolute Nucleated RBC 0.000 Nucleated RBC % (auto) 0.0 Anion Gap 8 L Estim Creat Clear Calc 92.2 Estimated GFR > 60 Fasting Glucose 124 H Calcium 8.0 L Total Bilirubin 1.0 AST 13 ALT 16 Alkaline Phosphatase 52 Total Protein 4.9 L Albumin 2.9 L Microbiology Microbiology Results: Microbiology 11/07/21 06:22 Blood Culture - Preliminary Blood - Venous No growth after 48 hours. 11/07/21 08:20 Blood Culture - Preliminary Blood - Venous No growth after 24 hours. Assessment and Plan (1) Colitis: Status: Acute (2) COPD (chronic obstructive pulmonary disease): Status: Acute (3) Afib: Status: Acute Plan 70-year-old female with known history of COPD recently admitted for same presents with 24-36 hours of vomiting and lower abdominal pain. Workup in the ER consistent with a leukocytosis that has been ongoing and CT scan that showed mild wall thickening of the distal colon consistent with colitis. Should be admitted for treatment of the same 1. Colitis in the absence of a diverticulitis -advance diet to low residue; continue IV fluids until stable diet -pain control with MS04 -cover with Pip/Tazo 2. COPD -improved since last admit -stop steroids give ABD pathology -prn nebs 3.Chronic Atrial Fibrilation -rate control adequte -continue current therapies including apixaban -adjust as indicated Full Code Apixaban Quality Stroke Does the patient have a stroke diagnosis?: No VTE Prior VTE?: No VTE Risk Level:: Medical - moderate - high VTE Device Contraindication: Treatment Not Indicated VTE Drug Contraindication: N/A - Med Ordered
[2021-11-09 10:51] VITALS: BP 106/63; PULSE 75; RESP 18; TEMP 36.7; O2SAT 97
--- NOTE | 2021-11-09 11:57 | P.CDIC_ITS ---
CDI Concurrent Query Documentation Clarification: PHYSICIAN'S DOCUMENTATION REQUEST Date of Query: 11/09/21 115 Patient Name: Sari Mccarthy Admit Date: 11/07/21 Dear Doctor, A review of the medical record indicates additional documentation may be needed. Please review below and update the documentation accordingly. Risk Factors/Clinical Indicators/Treatments WBC 22.9 LA 2.4 respiratory rate 22 Per ED note: Sepsis treated with Piperacillin Recognized standard criteria for this condition and other infectious definitions includes: Sepsis Systemic manifestations of infection, with 2 or more SIRS criteria which include: * Fever > 100.4?F or hypothermia < 96.8?F * Leukocytosis ? WBC > 12,000 or leukopenia, WBC < 4,000, or > 10% bands * Tachycardia- > 90 beats/minute * Tachypnea- RR > 20 breaths/minute or PaCO2 < 32mmHg Source: [employer] Manual 2013 Documentation should include the known or suspected organism, and the underlying infection, such as UTI or pneumonia Based on the above information and the recognized standard for sepsis, could you please clarify in the Progress Notes if this diagnoses is still accurate and reflective of the patient's condition to ensure quality of the medical record. * Sepsis is/was present and is a clinical diagnosis (please include this additional support in the medical record) * After study (the condition) has been ruled out * Other (please specify) * Unable to determine Use of terms such as suspected, likely, concern for, or probable (associated with a specific diagnosis that is being evaluated, monitored, or treated as if it exists) are acceptable and can be coded in the inpatient setting, when documented at the time of discharge. Thank you, Usha Sanchez RN Extension: [phone] Please use your independent medical judgment in providing your response. THIS QUERY IS PART OF THE PERMANENT MEDICAL RECORD Provider Response: Other Other Diagnosis: sepsis has been ruled out
[2021-11-09 16:00] VITALS: BP 99/60; PULSE 70; RESP 18; TEMP 37.1; O2SAT 95
[2021-11-09] MEDS: 0.9 % Sodium Chloride Flush 3 ML SYRINGE IVFLUSH ×2 (16:56→23:52)
--- NOTE | 2021-11-09 17:24 | PC.NURSE ---
P IV in right upper arm painful,red,large bruise present I- Dr. Rome notified,IV removed,sterile drsg applied E will monitor
[2021-11-09 19:26] VITALS: BP 103/61; PULSE 71; RESP 18; TEMP 37.7; O2SAT 96
[2021-11-09 23:51] VITALS: BP 97/52; PULSE 74; RESP 17; TEMP 36.2; O2SAT 97
[2021-11-09] MEDS: Zolpidem Tartrate 5 MG TABLET PO (23:51)
[2021-11-10 03:57] VITALS: BP 113/58; PULSE 74; RESP 16; TEMP 36.4; O2SAT 95
[2021-11-10] MEDS: Piperacillin Sodium/Tazobactam 3.375 GM in 0.9 % Sodium Chloride 50 ML IV (04:08)
[2021-11-10 07:42] VITALS: BP 110/55; PULSE 70; RESP 18; TEMP 37.2; O2SAT 95
[2021-11-10] MEDS: PARoxetine HCL 20 MG TABLET PO (08:27)
[2021-11-10] MEDS: Atorvastatin Calcium 10 MG TABLET PO (08:28)
[2021-11-10] MEDS: Calcium + Vitamin D 250 MG TABLET 500 MG PO (08:28)
[2021-11-10] MEDS: Furosemide 40 MG TABLET PO (08:28)
[2021-11-10] MEDS: Apixaban 5 MG TABLET PO (08:29)
[2021-11-10] MEDS: Ferrous Sulfate 324 MG TABLET.DR PO (08:29)
[2021-11-10] MEDS: Metoprolol Succinate ER 100 MG TAB.ER.24H PO (08:29)
[2021-11-10] MEDS: Multivitamin TABLET 1 TAB PO (08:30)
[2021-11-10 10:40] VITALS: BP 94/54; PULSE 67; RESP 18; TEMP 36.7; O2SAT 95
--- NOTE | 2021-11-10 14:34 | P.DS_ITS ---
DS: Providers Provider Date of Service: 11/10/21 Date of admission: 11/07/21 09:59 Date of discharge: 11/10/21 Primary care physician: David Elizabeth MD DS: Diagnosis Discharge Diagnosis (1) Colitis: Status: Acute (2) COPD (chronic obstructive pulmonary disease): Status: Acute (3) Afib: Status: Acute DS: Summary Hospital Course Hospital Course: 70-year-old female recently admitted t0 [facility]? 10/29/21 through 11/02/2021 for COPD exacerbation presents today with approximately 24-36 hours of persistent vomiting accompanied by left lower quadrant abdominal pain.? She states she questioned whether some of the vomitus contained blood.? She denies fever chills.? Workup in the ER consistent with a leukocytosis that has been ongoing and CT scan that showed mild wall thickening of the distal colon consistent with colitis.?? Hospital Course admitted on IV Zosyn. Over the next 48 hours abdominal pain improved and diet was advanced to low residue. On the day of discharge patient did have some loose stools however she will be sent home on Cipro and Flagyl follow-up with PCP 2 weeks Time Spent with Patient Time attestation: Total time spent providing and/or coordinating discharge services: Discharge coordination time: Greater than 30 minutes Quality: Stroke Does the patient have a stroke diagnosis?: No Physical Exam Vital Signs: Vital Signs: Last Vital Signs Temp 98.1 F 11/10/21 10:40 Pulse 67 11/10/21 10:40 Resp 18 11/10/21 10:40 BP 94/54 L 11/10/21 10:40 Pulse Ox 95 11/10/21 10:40 BMI result Body Mass Index 37.7 Const: Other: Ill-appearing female in no acute distress HENMT: Other: Membranes dry Resp: Other: Clear to auscultation bilaterally. No rales rhonchi or wheezes Cardio: Other: No S4; positive S1-S2; no S3 murmurs or gallops GI: Other: Soft/tender left lower quadrant; no guarding no rebound. Bowel sounds quiet Neuro: Other: Cranial nerves 2-12 grossly intact as tested. Motor is 5/5 all extremities. Sensation intact. Cognition appropriate Extrem: Other: No edema bilaterally DS: Data Data Completed and Pending Completed studies during hospitalization [Text1]: Procedures Reposition Right Upper Femur with Intramedullary Internal Fixation Device, Percutaneous Approach (08/28/20) Labs on day of discharge: Preliminary micro results at discharge 11/07/21 08:20 Blood Culture - Preliminary Blood - Venous No growth after 48 hours. 11/07/21 06:22 Blood Culture - Preliminary Blood - Venous No growth after 48 hours. Discharge Plan Discharge Patient Disposition: Home Health Service Discharge Diagnosis: colitis Referrals: David Elizabeth MD [Primary Care Provider] - 1 Week Discharge Medications: New ciprofloxacin HCl [Cipro] 500 mg tablet 500 mg PO BID Qty: 14 0RF metronidazole 500 mg tablet 500 mg PO TID Qty: 21 0RF Continued furosemide 40 mg tablet 40 mg PO DAILY 0RF clonazepam 1 mg tablet 1 mg PO BID PRN (Reason: Anxiety) 0RF paroxetine HCl 20 mg tablet 20 mg PO DAILY 0RF zolpidem 5 mg tablet 5 mg PO BEDTIME PRN (Reason: Sleep) 0RF calcium carbonate-vitamin D3 [Oystercal-D] 500 mg(1,250mg) -400 unit tablet 1 tab PO BID 0RF zinc 50 mg Tablet 50 mg PO DAILY 0RF Prolia 60 mg/mL syringe 1 ml subcut Q6M 0RF Rx Instructions: pt's daughter stated next dose is due 11/12/21 albuterol sulfate [Ventolin HFA] 90 mcg/actuation HFA aerosol inhaler 2 puff inhalation Q4H PRN (Reason: Wheezing) 0RF prednisone 10 mg tablet See Rx Instructions .Route .COMPLEX Qty: 45 0RF Rx Instructions: 10 mg orally; 5 tabs p.o. daily x3 days; 4 tabs p.o. daily x3 days; 3 tabs daily x3 days; 2 tabs daily x3 days; 1 tab daily x3 days multivitamin Tablet 1 tab PO DAILY 0RF metoprolol succinate 50 mg tablet extended release 24 hr 100 mg PO DAILY 0RF Rx Instructions: IN THE MORNING melatonin 5 mg capsule 5 mg PO BEDTIME PRN (Reason: Sleep) 0RF apixaban 5 mg tablet 5 mg PO BID 0RF atorvastatin 10 mg tablet 10 mg PO DAILY 0RF ferrous sulfate 325 mg (65 mg iron) tablet 325 mg PO DAILY 0RF (DME) Wheelchair See Rx Instructions .ROUTE .MEDSUPPLY Qty: 1 0RF Rx Instructions: with larger than standard size wheels Discontinued doxycycline hyclate 100 mg capsule 100 mg PO BID Qty: 20 0RF Discharge Orders: Discharge Order (Routine); Ordered 11/10/21 Ordered By: Robert Rome Diet: advance to usual diet Activity on Discharge: As tolerated Stand Alone Forms: Patient Portal Discharge page Care Plan Goals: complete both antibiotics as ordered; Cipro 5oomg mg twice a day for week and Flagyl 500 mg 3 times a day week Health Concerns: advance diet to high-fiber when pain free Plan of Treatment: follow-up with PCP 1-2 weeks Assessment: see discharge summary
[2021-11-10 16:00] VITALS: BP 98/61; PULSE 69; RESP 18; TEMP 36.7; O2SAT 97
--- NOTE | 2021-11-10 16:02 | MHC.CM.PN ---
PATIENT TO DC HOME WITH [facility]UMPITON OF HER [employer] [facility]. IMM 11/09 IN CHART DAUGHTER TO TRANSPORT.
== END 2021-11-10 17:13 | disposition home health service (06) | DRG 872 ==
LOC: HO.ED 09:12 → HO.EDOVER 10:07 → HO.S3 19:20
PROVIDERS: Student in an Organized Health Care Education/Training Program; Admitting Provider Hospitalist; Emergency Provider Emergency Medicine; PCP Internal Medicine; Visit Provider Hospitalist
DX: A41.9 Sepsis, unspecified organism (principal); N39.0 Urinary tract infection, site not specified; I48.20 Chronic atrial fibrillation, unspecified; K92.2 Gastrointestinal hemorrhage, unspecified; K52.9 Noninfective gastroenteritis and colitis, unspecified; K21.9 Gastro-esophageal reflux disease without esophagitis; F41.9 Anxiety disorder, unspecified; Z20.822 Contact with and (suspected) exposure to COVID-19; Z88.2 Allergy status to sulfonamides; Z88.5 Allergy status to narcotic agent; Z79.01 Long term (current) use of anticoagulants; Z79.899 Other long term (current) drug therapy
CPT/HCPCS: 36415; 74178; 80048; 80053; 80076; 81003; 82272; 82947; 83605; 83690; 83735; 85025; 85610; 86850; 86900; 86901; 87040; 87635; 93005; 96361; 96365; 96367; 96375; 99285; J0696; J2270; J2405; J2543; Q9967

== ENCOUNTER → 2021-12-07 08:10 | Outpatient (BNVA) | payer MEDICARE, SELFPAY | PROVIDERS: Visit Provider Student in an Organized Health Care Education/Training Program | DX: M81.0 Age-related osteoporosis without current pathological fracture (principal) | CPT/HCPCS: 96372 ==

== ENCOUNTER 2022-01-04 17:06 | Emergency (ER) | payer MEDICARE, SELFPAY ==
--- NOTE | ~2022-01-04 | CT_ITS ---
EXAMINATION: CT HEAD WITHOUT CONTRAST CT CERVICAL SPINE WITHOUT CONTRAST CLINICAL INFORMATION: Fall. COMPARISON: None TECHNIQUE: CT of the head and cervical spine were performed without intravenous contrast. Multiplanar reformats were rendered and reviewed. This CT examination was performed using dose optimization techniques as appropriate, variously including the following: *Automated exposure control *Adjustment of mA and/or kV according to patient size (this includes techniques or standardized protocols for targeted exams where dose is matched to indication/reason for exam; i.e. extremities or head) *Use of iterative reconstruction technique DLP: 3865 mGy-cm. FINDINGS: CT head: There is no intracranial hemorrhage, extra-axial collection, mass effect, or territorial infarction. There is mild degree of brain parenchymal volume loss with prominence of the ventricles and sulci. Hypoattenuation in the cerebral white matter most likely reflects sequela of mild chronic microangiopathy. The visualized paranasal sinuses and mastoid air cells are clear. CT cervical spine: Imaging of the cervical spine was performed. The examination includes the superior portion of the C7 vertebral body but does not extend through the inferior aspect of C7 or through the T1 level. The cervical vertebral bodies maintain normal heights. The craniovertebral junction is intact. No fracture is seen. There is ankylosis of the bilateral C2-C3 facets. Advanced degenerative changes are noted including advanced facet arthropathy. There is no high-grade narrowing of the cervical spinal canal. Multilevel neural foraminal stenosis is noted related to uncovertebral hypertrophy and facet arthropathy. The extraspinal soft tissues are within normal limits. CT/CT cervical spine wo con IMPRESSION: CT head: - No intracranial hemorrhage or acute abnormality. CT cervical spine: - No cervical spine fracture or traumatic malalignment. Multilevel degenerative changes.
--- NOTE | ~2022-01-04 | CT_ITS ---
EXAMINATION: CT CHEST, ABDOMEN AND PELVIS WITHOUT CONTRAST CLINICAL INFORMATION: Fall with pain right lower ribs and right upper quadrant COMPARISON: CT abdomen pelvis 11/07/2021, CT chest 08/31/2020 TECHNIQUE: Multidetector volumetric imaging was performed from the thoracic inlet through the pubic symphysis without IV contrast. Sagittal and coronal reformatted images were obtained on the technologist's workstation. This CT examination was performed using dose optimization techniques as appropriate, variously including the following: *Automated exposure control *Adjustment of mA and/or kV according to patient size (this includes techniques or standardized protocols for targeted exams where dose is matched to indication/reason for exam; i.e. extremities or head) *Use of iterative reconstruction technique DLP: 1515 mGy-cm FINDINGS: CHEST: Lung: The lungs are clear without worrisome focal opacity or nodule. Some tiny perifissural nodular densities are seen that were present previously but difficult to appreciate because of marked motion artifact. Mediastinum: The mediastinum is unremarkable. The central vascular structures are unremarkable. No hilar or mediastinal lymphadenopathy. Pericardium/Pleura: No significant effusion. No pleural mass or thickening. Chest Wall/Axilla: There is an old rib fracture of the right anterolateral third rib which is unchanged in appearance when compared to 08/28/2020. No acute rib fractures are seen. A left chest wall 3-lead pacemaker is present. ABDOMEN/PELVIS: Peritoneal Space: No significant free air or free fluid identified. Liver, Gallbladder, Biliary Tree: The liver is normal in size, shape, and attenuation. No focal hepatic lesion or biliary ductal dilatation is present. The gallbladder is unremarkable with no evidence of radiopaque gallstones, gallbladder wall thickening, or obvious pericholecystic inflammatory changes. Pancreas: Unremarkable Spleen: Unremarkable Adrenal Glands: Unremarkable Kidneys and Ureters: The kidneys are normal in size, shape, and attenuation. An unchanged benign Bosniak class I right renal cyst is present which needs no further imaging or follow-up. No solid renal masses are seen. No hydronephrosis, hydroureter, or calculi seen. No perinephric stranding. Bladder: Unremarkable Gastrointestinal Tract: A large hiatal hernia is present with the majority of the stomach above the diaphragm. The small and large bowel are unremarkable. The appendix is not seen but there is no evidence of appendicitis. Abdominal Wall: No significant hernia is appreciated. Lymph Nodes: No lymphadenopathy. Vascular: The aorta appears unremarkable with calcific plaque without aneurysm.. The IVC appears unremarkable. PELVIC VISCERA: Unremarkable OSSEUS STRUCTURES: Mild degenerative changes are noted in the spine. No bony destructive lesions are seen. No spinal fractures. CT/CT abdomen pelvis wo con IMPRESSION: 1. No evidence of a traumatic injury in the chest, abdomen or pelvis after the patient's fall. 2. Incidental findings as above including large hiatal hernia with most of the stomach in the chest. Fleischner guidelines were followed.
--- NOTE | 2022-01-04 17:21 | ED_ITS ---
HPI - Fall General Chief Complaint: Fall Stated Complaint: FALL LAST NIGHT W/ R SIDE PAIN PER EMS Time Seen by Provider: 01/04/22 17:21 Source: patient and old records reviewed Mode of arrival: EMS Limitations: no limitations History of Present Illness MD complaint: fall Onset (ago): hour(s) (last night) Fall from: standing Fall witnessed: yes, by family Place fall occurred: home Loss of consciousness: none Prolonged down time: no Symptoms prior to fall: none Context: tripped/slipped (furniture is being moved around the house - she slipped and hit R ribs into table corner) Location of injury: chest (right lower anterior ribs) Location of injury - extremities: right: thigh Severity: moderate Quality: dull and aching Associated symptoms (after fall): other (R rib pain, R thigh pain) Related Data Home Medications Medication Instructions Recorded Confirmed apixaban 5 mg tablet 5 mg PO BID 07/21/20 11/07/21 atorvastatin 10 mg tablet 10 mg PO DAILY 07/21/20 11/07/21 ferrous sulfate 325 mg (65 mg 325 mg PO DAILY 07/21/20 11/07/21 iron) tablet melatonin 5 mg capsule 5 mg PO BEDTIME PRN 07/21/20 11/07/21 metoprolol succinate 50 mg 100 mg PO DAILY 07/21/20 11/07/21 tablet,extended release 24 hr multivitamin 1 tab PO DAILY 07/21/20 11/07/21 calcium carbonate 500 mg-vitamin 1 tab PO BID 08/28/20 11/07/21 D3 10 mcg (400 unit) tablet (Oystercal-D) clonazepam 1 mg tablet 1 mg PO BID PRN 08/28/20 11/07/21 furosemide 40 mg tablet 40 mg PO DAILY 08/28/20 11/07/21 paroxetine HCl 20 mg tablet 20 mg PO DAILY 08/28/20 11/07/21 zinc 50 mg tablet 50 mg PO DAILY 08/28/20 11/07/21 zolpidem 5 mg tablet 5 mg PO BEDTIME PRN 08/28/20 11/07/21 albuterol sulfate 90 mcg/actuation 2 puff INHALATION Q4H PRN 10/29/21 11/07/21 aerosol inhaler (Ventolin HFA) denosumab 60 mg/mL subcutaneous 1 ml SUBCUT Q6M 11/07/21 11/07/21 syringe (Prolia) Previous Rx's Medication Instructions Recorded Wheelchair #1 ea 10/06/20 prednisone 10 mg tablet See Rx Instructions .ROUTE 11/02/21 .COMPLEX #45 tab ciprofloxacin HCl 500 mg tablet 500 mg PO BID #14 tab 11/10/21 (Cipro) metronidazole 500 mg tablet 500 mg PO TID #21 tab 11/10/21 hydrocodone 5 mg-acetaminophen 325 1 tab PO Q6H PRN #10 tab 01/04/22 mg tablet lidocaine 5 % topical patch 1 patch TOPICAL DAILY PRN #15 ea 01/04/22 Allergies Allergy/AdvReac Type Severity Reaction Status Date / Time azithromycin Allergy Rash Verified 10/31/21 07:27 tramadol Allergy Vomiting Verified 10/29/21 23:19 Sulfa (Sulfonamide AdvReac Intermediate VOMITING Verified 05/07/21 08:12 Antibiotics) [SULFA(SULFONAMIDE ANTIBIOTICS)] Review of Systems Review of Systems: Constitutional : No Weight loss, No Fever, No Chills ENT/Mouth : No sore throat, No Rhinorrhea Eyes: No Eye Pain, No Swelling Cardiovascular : pos Chest Pain at site of ribs, no SOB, no Dyspnea on Exertion, No Orthopnea, No Edema, No Palpitations Respiratory : No Cough, No Sputum Gastrointestinal : no Nausea, No Vomiting, No Diarrhea, No abdominal Pain, No Hematochezia, No Melena Genitourinary : No Dysuria, No Urinary Frequency Musculoskeletal : No joint pain, No Myalgias, No Joint Swelling, pos thigh pain Skin : No Skin Lesions, No rash Neuro : No Weakness, No Numbness, No Dizziness, No Headache Psych : No Anxiety/Panic, No Depression Heme/Lymph: No Bruising, No Lymphadenopathy Endocrine : No Polyuria, No Polydipsia All other systems reviewed and are negative PMFSH Past Medical History Attestation statement: The following information was validated with the patient. Medical History Afib Anxiety Aortic stenosis Asthma Closed right hip fracture Depression Fracture of hip GERD (gastroesophageal reflux disease) Myocardial infarction Normocytic anemia Osteoporosis Pacemaker Surgical History H/O: hysterectomy Status post right knee replacement Family History Family History Other No family history of coronary artery disease Social History Social History Household Members: Family Housing: House Do you presently have visiting nurse or other home services: No Alcohol intake: never Patient Tobacco Use Status: Current everyday Tobacco user Tobacco use type: Cigarette Cigarette Packs Per Day: 0.25 Cigarettes Per Day: 1 Years Smoked: 55 Second Hand Smoke Exposure: No Use of substances other than those prescribed or required for medical reasons: No Advance Directives: Yes Advance Directives on File: Yes Advance Directives Date on File: 08/28/20 service: No Current occupational status: retired Physical Exam Vital Signs: Vital Signs: Last Vital Signs Temp 98.9 F 01/04/22 17:56 Pulse 70 01/04/22 20:20 Resp 17 01/04/22 20:20 BP 113/69 01/04/22 20:20 Pulse Ox 93 01/04/22 20:20 BMI result Body Mass Index 37.5 Appearance: Alert. Oriented X3. No acute distress. Eyes: Pupils equal, round and reactive to light. ENT: Pharynx normal. Neck: Normal inspection. Neck supple. CVS: Normal heart rate and rhythm. Pulses normal. Chest: ttp along R lower anterior ribs no mass or hematoma/crepitus felt Respiratory: No respiratory distress. Breath sounds normal. Abdomen: Soft and non-tender. Skin: Skin warm and dry. Normal skin color. Normal skin turgor. Extremities: No lower extremity edema. R thigh ttp has small hematoma on thigh but no pain with ROM and no pain with axial loading Neuro: Oriented X 3. No motor deficit. No sensory deficit. Course Course Course Narrative: pending CT head and cspine she can go home, no acute findings. Labs stable. MDM - Fall MDM Narrative Medical decision making narrative: 71 yo female with hx of COPD, afib on eliquis, colitis, osteoporosis was walking around her house last night and her furniture is moved around due to upcoming move. She tripped fell and landed her R ribs into the table - no LOC. Only other injury is R thigh hematoma which is small is able to walk on laeg no pain with axial loading doubt fracture - labs, CT head/cspine/chest/abdomen given age and eliquis use. Dispo per results and findings. Lab Data Result diagrams: 01/04/22 17:58 01/04/22 17:58 Labs: Lab Results 01/04/22 01/04/22 01/04/22 Range/Units 17:58 17:58 17:58 WBC 9.3 (4.8-10.8) X10*3/uL RBC 4.37 D (4.20-5.50) X10*6/uL Hgb 12.9 D (12.0-16.0) g/dl Hct 39.2 D (37.0-47.0) % MCV 89.7 (80.0-98.0) fL MCH 29.5 (27.0-33.0) pg MCHC 32.9 (31.0-35.0) g/dl RDW 12.4 (11.0-16.0) % Plt Count 284 D (160-400) X10*3/uL MPV 9.5 (9.4-12.3) fL Immature Gran % (Auto) 0.3 (0.0-0.4) % Neut % (Auto) 69.0 (45-73) % Lymph % (Auto) 22.3 (20-40) % Reeves % (Auto) 6.8 (2-11) % Eos % (Auto) 1.4 (0-4) % Baso % (Auto) 0.2 (0-2) % Lymph # (Auto) 2.1 (1.2-4.9) X10*3/uL Reeves # (Auto) 0.6 (0.1-1.2) X10*3/uL Eos # (Auto) 0.1 (0.0-0.4) X10*3/uL Baso # (Auto) 0.0 (0.0-0.2) X10*3/uL Abs Immat Gran (auto) 0.03 (0.00-0.03) X10*3/uL Absolute Neuts (auto) 6.4 (2.0-8.3) x10*3/uL Absolute Nucleated RBC 0.000 (0.0-0.012) X10*3/uL Nucleated RBC % (auto) 0.0 (0.0-0.2) /100WBC PT 14.1 H (9.9-13.0) SEC INR 1.2 H (0.9-1.1) Sodium 141 (135-145) mmol/L Potassium 4.4 D (3.3-5.1) mmol/L Chloride 105 (96-108) mmol/L Carbon Dioxide 26 (22-29) mmol/L Anion Gap 14 (12-20) BUN 18 H (9-16) mg/dL Creatinine 0.77 (0.5-1.4) mg/dL Estim Creat Clear Calc 89.4 Estimated GFR > 60 Random Glucose 121 H (60-115) mg/dL Calcium 9.0 D (8.4-10.2) mg/dL Total Bilirubin 0.5 (0.0-1.0) mg/dL Direct Bilirubin 0.2 (0.0-0.5) mg/dL AST 18 (5-31) U/L ALT 14 (0-31) U/L Alkaline Phosphatase 83 D (39-117) U/L Total Protein 6.7 D (6.5-8.0) g/dL Albumin 3.7 D (3.5-5.0) g/dL Lipase 13 (8-78) U/L Discharge Plan Discharge Clinical Impression: Hernia, hiatal Contusion of rib on right side Qualifiers: Encounter type: initial encounter Qualified Code(s): S20.211A - Contusion of right front wall of thorax, initial encounter Patient Disposition: Home, Self-Care Instructions: Hiatal Hernia (ED), Rib Contusion (ED) Additional Instructions: return to ED for any worsening symptoms or concerns no new rib fractures on CT scan - there is an old fracture which is unchanged from Aug 2020 no other injuries seen Prescriptions: New lidocaine 5 % adhesive patch,medicated 1 patch topical DAILY PRN (Reason: pain) Qty: 15 0RF Rx Instructions: leave on most painful area for up to 12 hrs hydrocodone-acetaminophen 5-325 mg tablet 1 tab PO Q6H PRN (Reason: pain) Qty: 10 0RF No Action furosemide 40 mg tablet 40 mg PO DAILY 0RF clonazepam 1 mg tablet 1 mg PO BID PRN (Reason: Anxiety) 0RF paroxetine HCl 20 mg tablet 20 mg PO DAILY 0RF zolpidem 5 mg tablet 5 mg PO BEDTIME PRN (Reason: Sleep) 0RF calcium carbonate-vitamin D3 [Oystercal-D] 500 mg(1,250mg) -400 unit tablet 1 tab PO BID 0RF zinc 50 mg Tablet 50 mg PO DAILY 0RF Prolia 60 mg/mL syringe 1 ml subcut Q6M 0RF Rx Instructions: pt's daughter stated next dose is due 11/12/21 ciprofloxacin HCl [Cipro] 500 mg tablet 500 mg PO BID Qty: 14 0RF metronidazole 500 mg tablet 500 mg PO TID Qty: 21 0RF albuterol sulfate [Ventolin HFA] 90 mcg/actuation HFA aerosol inhaler 2 puff inhalation Q4H PRN (Reason: Wheezing) 0RF prednisone 10 mg tablet See Rx Instructions .Route .COMPLEX Qty: 45 0RF Rx Instructions: 10 mg orally; 5 tabs p.o. daily x3 days; 4 tabs p.o. daily x3 days; 3 tabs daily x3 days; 2 tabs daily x3 days; 1 tab daily x3 days multivitamin Tablet 1 tab PO DAILY 0RF metoprolol succinate 50 mg tablet extended release 24 hr 100 mg PO DAILY 0RF Rx Instructions: IN THE MORNING melatonin 5 mg capsule 5 mg PO BEDTIME PRN (Reason: Sleep) 0RF apixaban 5 mg tablet 5 mg PO BID 0RF atorvastatin 10 mg tablet 10 mg PO DAILY 0RF ferrous sulfate 325 mg (65 mg iron) tablet 325 mg PO DAILY 0RF (DME) Wheelchair See Rx Instructions .ROUTE .MEDSUPPLY Qty: 1 0RF Rx Instructions: with larger than standard size wheels Referrals: David Elizabeth MD [Primary Care Provider] - 3 days (if not better)
[2022-01-04 17:30] VITALS: BP 122/66; BP 134/80; PULSE 76; PULSE 95; RESP 16; TEMP 36.8; O2SAT 96; O2SAT 98
[2022-01-04 17:56] VITALS: BP 131/76; PULSE 70; RESP 18; TEMP 37.2; O2SAT 97; BMI 37.5
[2022-01-04 18:16] LABS: MANUAL DIFF FLAG NO
[2022-01-04 18:18] LABS: Basophils Percent Auto 0.2 % (0-2); Eosinophils Absolute Auto 0.1 X10*3/uL (0.0-0.4); Eosinophils Percent Auto 1.4 % (0-4); Hematocrit 39.2 % (37.0-47.0); Hemoglobin 12.9 g/dl (12.0-16.0); Imm Gran Abs Auto 0.03 X10*3/uL (0.00-0.03); Imm Gran Pct Auto 0.3 % (0.0-0.4); Lymphocytes Absolute Auto 2.1 X10*3/uL (1.2-4.9); Lymphocytes Percent Auto 22.3 % (20-40); Mean Corpuscular HGB Conc 32.9 g/dl (31.0-35.0); Mean Corpuscular Hemoglobin 29.5 pg (27.0-33.0); Mean Corpuscular Volume 89.7 fL (80.0-98.0); Mean Platelet Volume 9.5 fL (9.4-12.3); Monocytes Absolute Auto 0.6 X10*3/uL (0.1-1.2); Monocytes Percent Auto 6.8 % (2-11); Neutrophils Absolute Auto 6.4 x10*3/uL (2.0-8.3); Platelet Count 284 X10*3/uL (160-400); Red Blood Count 4.37 X10*6/uL (4.20-5.50); Red Cell Distribution Width 12.4 % (11.0-16.0); White Blood Count 9.3 X10*3/uL (4.8-10.8)
[2022-01-04 18:24] LABS: INTERNATIONAL NORM RATIO 1.2 (0.9-1.1); Prothrombin Time 14.1 SEC (9.9-13.0)
[2022-01-04 18:36] LABS: Alanine Aminotransferase 14 U/L (0-31); Albumin Level 3.7 g/dL (3.5-5.0); Alkaline Phosphatase 83 U/L (39-117); Anion Gap 14 (12-20); Aspartate Amino Transferase 18 U/L (5-31); Bilirubin Direct 0.2 mg/dL (0.0-0.5); Bilirubin Total 0.5 mg/dL (0.0-1.0); Blood Urea Nitrogen 18 mg/dL (9-16); Carbon Dioxide 26 mmol/L (22-29); Chloride 105 mmol/L (96-108); Creatinine Clr Calc Pharmacy 89.4; Estimated Glomerular Filt Rate > 60; Glucose Random 121 mg/dL (60-115); Lipase 13 U/L (8-78); Potassium 4.4 mmol/L (3.3-5.1); Sodium 141 mmol/L (135-145); Total Protein 6.7 g/dL (6.5-8.0)
[2022-01-04] MEDS: Ondansetron ODT 4 MG TAB.RAPDIS TRANSLINGU (18:46)
[2022-01-04] MEDS: oxyCODONE HCl Immed Release 5 MG TABLET PO (18:46)
--- NOTE | 2022-01-04 18:48 | PC.NURSE ---
medicated per provider order.
[2022-01-04 20:20] VITALS: BP 113/69; PULSE 70; RESP 17; O2SAT 93
--- NOTE | 2022-01-04 21:00 | PC.NURSE ---
pt a&ox3, vss, reporting decreased pain - now /, some chest discomfort and rib pain still. no new orders at this time.
[2022-01-04 22:00] VITALS: BP 107/59; PULSE 73; RESP 18; TEMP 36.8; O2SAT 93
[2022-01-04] MEDS: Acetaminophen 325 MG TABLET 975 MG PO (22:02)
--- NOTE | 2022-01-04 22:04 | PC.NURSE ---
patient a&ox3, vss, environmental monitoring technician intact paced 70s, pt c/o 8 pain, call hernández within reach, will continue to monitor.
[2022-01-05 01:25] VITALS: PULSE 70; RESP 16; O2SAT 98
--- NOTE | 2022-01-05 01:30 | PC.NURSE ---
I assumed nursing care of Sari at 2300. Since that time she has been sleeping in bed, arousable to verbal stimuli at which time she is oriented x 3. She is aware that she is to be dsicharged but stated she was unable to obtain transport home. I spoke with Isabel, community support specialist, who was able to obtain an ambulance ride home for the pt. I notified the pt and she verbalized an understanding. Awaiting ambulance transport home.
--- NOTE | 2022-01-05 02:01 | PC.NURSE ---
CHAIR CAR TRANSPORT PROVDED FOR PT. i NOTIFIED PT'S DAUGHTER THAT THE PT WAS RETURNING HOME AND SHE VERBALIZED AN UNDERSTANDING.
== END 2022-01-05 02:03 | disposition home or self-care (01) ==
PROVIDERS: Emergency Provider Emergency Medicine; PCP Internal Medicine
DX: S20.211A Contusion of right front wall of thorax, initial encounter (principal); S13.4XXA Sprain of ligaments of cervical spine, initial encounter; K44.9 Diaphragmatic hernia without obstruction or gangrene; G44.309 Post-traumatic headache, unspecified, not intractable; W01.190A Fall on same level from slipping, tripping and stumbling with subsequent striking against furniture, initial encounter; Y93.9 Activity, unspecified; Y92.009 Unspecified place in unspecified non-institutional (private) residence as the place of occurrence of the external cause; Y99.9 Unspecified external cause status; Z79.899 Other long term (current) drug therapy
CPT/HCPCS: 36415; 70450; 71250; 72125; 74176; 80048; 80076; 83690; 85025; 85610; 99284

== ENCOUNTER 2022-07-19 19:55 | Emergency (ER) | payer MEDICARE, SELFPAY ==
--- NOTE | 2022-07-19 | ECG_ITS ---
Test Reason : Chest pain Blood Pressure : / mmHG Vent. Rate : 077 BPM Atrial Rate : 242 BPM P-R Int : 000 ms QRS Dur : 144 ms QT Int : 444 ms P-R-T Axes : 000 185 233 degrees QTc Int : 502 ms Ventricular-paced rhythm Abnormal ECG When compared with ECG of 07-NOV-2021 06:39, Vent. rate has increased BY 5 BPM T wave inversion more evident in Inferior leads Referred By: Generic ED Physician Electronically Signed By:SLOANE PRITCHARD MD
--- NOTE | ~2022-07-19 | CT_ITS ---
EXAMINATION: CT ANGIOGRAM OF THE CHEST WITH AND WITHOUT CONTRAST (CT PULMONARY ANGIOGRAM FOR PE) CLINICAL INFORMATION: Postoperative sob and chest pain COMPARISON: CT chest 01/04/2022 TECHNIQUE: Prior to contrast administration, noncontrast localization images were obtained. Subsequently, multidetector volumetric imaging was performed from the thoracic inlet to below the diaphragms following the administration of 100 mL Omnipaque 350 intravenous contrast. No contrast reaction reported Sagittal, coronal, and MIP oblique sagittal reformatted images were obtained on the CT workstation, uploaded to PACS, and reviewed. This CT examination was performed using dose optimization techniques as appropriate, variously including the following: *Automated exposure control *Adjustment of mA and/or kV according to patient size (this includes techniques or standardized protocols for targeted exams where dose is matched to indication/reason for exam; i.e. extremities or head) *Use of iterative reconstruction technique Total exam dose-length product 1293 mGy-cm FINDINGS: QUALITY OF STUDY/CONTRAST BOLUS: Satisfactory. PULMONARY ARTERIES: No central or segmental pulmonary emboli. THORACIC AORTA: No aneurysm or dissection. LUNG: Small pulmonary micronodules and perifissural nodules are again seen and unchanged (See moran images). For example, there is a right upper lobe nodule measuring 3 mm (9:144) and a right lower lobe perifissural 4 mm nodule (9:287) PLEURA: There is a loculated small pleural effusion present inferomedially on the right in the region of the gastroesophageal recess MEDIASTINUM: Normal heart size. A left chest wall bipolar pacemaker is present. A small hiatal hernia is present. No pericardial effusion. No hilar or mediastinal lymphadenopathy. No evidence of septal bowing or right heart strain. CHEST WALL/AXILLA: No axillary or internal mammary lymphadenopathy. OSSEOUS STRUCTURES: No acute or suspicious osseous abnormality. Degenerative changes seen throughout the spine. UPPER ABDOMEN: Surgical clips present near the judith hepatis. Marked hepatic steatosis. Air is present in the biliary tree status post Whipple No reflux of contrast into the hepatic veins to suggest elevated right heart pressures. CT/CT angio chest PE protocol IMPRESSION: 1. No evidence of pulmonary emboli. 2. Other incidental findings as described above. VTE: negative.
--- NOTE | ~2022-07-19 | XR_ITS ---
EXAMINATION: XR CHEST CLINICAL INFORMATION: Chest pain COMPARISON: None TECHNIQUE: Frontal portable view of the chest was obtained. 2114 hours FINDINGS: Pacemaker leads in right atrium and right ventricle. Heart size normal. Cardiac mediastinal contours are normal. No pulmonary vascular congestion. Lungs normally aerated. No pleural effusion or pneumothorax. Old healed fracture of the posterior left fourth rib. Orthopedic anchors in the right and left humeral heads. XR/XR chest 1V IMPRESSION: No acute abnormality of chest.
--- NOTE | ~2022-07-19 | CT_ITS ---
EXAMINATION: CT ABDOMEN AND PELVIS WITH CONTRAST CLINICAL INFORMATION: Abdominal pain. No flatus status post Whipple procedure COMPARISON: CT chest abdomen pelvis 05/08/2022 TECHNIQUE: Multidetector volumetric images were obtained from the superior aspect of the liver through the pubic symphysis following administration 100 mL of Omnipaque 350 intravenous contrast. Sagittal and coronal reformatted images were obtained on the technologist's workstation. Oral contrast: No This CT examination was performed using dose optimization techniques as appropriate, variously including the following: *Automated exposure control *Adjustment of mA and/or kV according to patient size (this includes techniques or standardized protocols for targeted exams where dose is matched to indication/reason for exam; i.e. extremities or head) *Use of iterative reconstruction technique DLP: 1293 mGy-cm FINDINGS: LUNG BASES: Compared to the prior 05/08/2022 study, there is been resolution of bilateral pleural effusions and atelectasis with only a small loculated effusion seen on the right abutting the mediastinum as ago esophageal recess. LIVER, GALLBLADDER, AND BILIARY TREE: There is hepatic steatosis. The gallbladder is not present. Air is seen in the biliary tree. PANCREAS: Patient status post Whipple procedure with anastomosis of pancreas with the duodenum. A gastrojejunostomy is present SPLEEN: A small splenic cyst is present superoposteriorly. ADRENAL GLANDS: Unremarkable. KIDNEYS AND URETERS: The kidneys are normal in size, shape, and attenuation. No hydronephrosis, hydroureter, or calculi seen. Bilateral Bosniak class I renal cysts are present the largest at the right upper pole measuring 3.1 cm. No further imaging or follow-up is needed. No solid renal masses. No perinephric stranding. BLADDER: Unremarkable. GASTROINTESTINAL TRACT: Findings related to the Whipple procedure are present ((see above) scattered colonic diverticula are present without evidence of diverticulitis. If the appendix is present is quite small and there is certainly no evidence of appendicitis. ABDOMINAL WALL: No significant hernia is appreciated. LYMPH NODES: No retroperitoneal lymphadenopathy. VASCULAR: Unremarkable aside from calcific plaque in the aorta and iliofemoral vessels. No aneurysm. PELVIC VISCERA: Surgically removed OSSEOUS STRUCTURES: Degenerative changes are present in the spine. 2 screws are present in the right femoral neck. CT/CT abdomen pelvis w IV con IMPRESSION: 1. A cause for the patient's abdominal pain has not been found. 2. Status post Whipple procedure with expected postoperative findings. 3. Incidental note made of near complete resolution of bilateral pleural effusions, hepatic steatosis, splenic cyst, colonic diverticula and degenerative changes in the spine and other findings described above.. Fleischner guidelines were followed.
--- NOTE | 2022-07-19 07:20 | ECG_ITS ---
Test Reason : GENERAL MEDICAL Blood Pressure : / mmHG Vent. Rate : 070 BPM Atrial Rate : 079 BPM P-R Int : 000 ms QRS Dur : 156 ms QT Int : 460 ms P-R-T Axes : 000 149 257 degrees QTc Int : 496 ms Ventricular-paced rhythm Abnormal ECG When compared with ECG of 19-JUL-2022 20:06, Vent. rate has decreased BY 7 BPM T wave inversion less evident in Inferior leads Referred By: Emma Geiger Electronically Signed By:SLOANE PRITCHARD MD
[2022-07-19 19:58] VITALS: BP 144/81; PULSE 75; RESP 20; TEMP 36.6; O2SAT 96; BMI 26.6
--- NOTE | 2022-07-19 20:34 | ED.CHESTPAIN ---
HPI - Chest Pain General Chief Complaint: Chest Pain Stated Complaint: Chest pain Time Seen by Provider: 07/19/22 20:29 Source: patient and family (daughter) Mode of arrival: ambulatory Limitations: other (poor historian ) History of Present Illness HPI narrative: This is a 71-year-old female past medical history significant for atrial fibrillation prescribed apixaban, anxiety, aortic stenosis, asthma, depression, GERD, PA, normocytic anemia, pacemaker in place, copd, pancreatic cancer status post Whipple procedure done at [facility] [address] Aggarwal presenting to the emergency department with multiple complaints. Patient tells me her main complaint is chest pain and shortness of breath all of which started this morning and have been worsening throughout the day. Patient reports substernal nonradiating chest pain tells me it is a stabbing pain rates it an 8/10 in tells me it is very uncomfortable. Patient reports shortness of breath both at rest and with exertion. Patient also has complaints of poor p.o. intake, abdominal pain that is diffuse in nature and has been progressively worsening over the past few days, nausea, subjective fevers/ chills, weakness, fatigue. Daughter at the bedside tells me that mother has been deteriorating for the past 3 months since the Whipple procedure, she reports that patient was discharged from [facility] into a assisted living facility/rehab [facility] in [place], she tells me that she took her mother out of this rehab facility on Monday because she did not like it there and did not trust their care. Since then she reports her mother has been homeless therefore she brought her into a hospital in [facility], patient left [facility] 2 days ago, unable to tell me what I patient was in the hospital for few days or with the diagnosis was. They tell me that she was advised to follow-up with her PCP. Daughter tells me that she does not know what medications her mother should be taking therefore she is not currently med compliant. Daughter tells me the last time that patient saw Was 2 weeks ago and it is a new PCP at [facility] Dr. Ashraf. Patient's daughter reports that she is usually ambulatory with assistance however has been too weak to ambulate. She tells me for the past 2 days mother has been at her apartment and today she decided to drive from [place] to [facility] to be evaluated at [facility]. Patient and daughter deny any trauma, blood in stool. Related Data Home Medications Medication Instructions Recorded Confirmed apixaban 5 mg tablet 5 mg PO BID 07/21/20 11/07/21 atorvastatin 10 mg tablet 10 mg PO DAILY 07/21/20 11/07/21 ferrous sulfate 325 mg (65 mg 325 mg PO DAILY 07/21/20 11/07/21 iron) tablet melatonin 5 mg capsule 5 mg PO BEDTIME PRN Sleep 07/21/20 11/07/21 metoprolol succinate 50 mg 100 mg PO DAILY 07/21/20 11/07/21 tablet,extended release 24 hr multivitamin 1 tab PO DAILY 07/21/20 11/07/21 calcium carbonate 500 mg-vitamin 1 tab PO BID 08/28/20 11/07/21 D3 10 mcg (400 unit) tablet (Oystercal-D) clonazepam 1 mg tablet 1 mg PO BID PRN Anxiety 08/28/20 11/07/21 furosemide 40 mg tablet 40 mg PO DAILY 08/28/20 11/07/21 paroxetine HCl 20 mg tablet 20 mg PO DAILY 08/28/20 11/07/21 zinc 50 mg tablet 50 mg PO DAILY 08/28/20 11/07/21 zolpidem 5 mg tablet 5 mg PO BEDTIME PRN Sleep 08/28/20 11/07/21 albuterol sulfate 90 mcg/actuation 2 puff inhalation Q4H PRN Wheezing 10/29/21 11/07/21 aerosol inhaler (Ventolin HFA) denosumab 60 mg/mL subcutaneous 1 ml subcut Q6M 11/07/21 11/07/21 syringe (Prolia) Previous Rx's Medication Instructions Recorded Wheelchair #1 ea 10/06/20 prednisone 10 mg tablet See Rx Instructions .Route 11/02/21 .COMPLEX #45 tabs ciprofloxacin HCl 500 mg tablet 500 mg PO BID #14 tabs 11/10/21 (Cipro) metronidazole 500 mg tablet 500 mg PO TID #21 tabs 11/10/21 hydrocodone 5 mg-acetaminophen 325 1 tab PO Q6H PRN pain #10 tabs 01/04/22 mg tablet lidocaine 5 % topical patch 1 patch topical DAILY PRN pain #15 01/04/22 ea Allergies Allergy/AdvReac Type Severity Reaction Status Date / Time azithromycin Allergy Rash Verified 10/31/21 07:27 tramadol Allergy Vomiting Verified 10/29/21 23:19 Sulfa (Sulfonamide AdvReac Intermediate VOMITING Verified 05/07/21 08:12 Antibiotics) [SULFA(SULFONAMIDE ANTIBIOTICS)] Review of Systems Review of Systems: Constitutional : No Weight loss, + Fever, + Chills, + Fatigue, + Malaise ENT/Mouth : No sore throat, No Rhinorrhea Eyes: No Eye Pain, No Swelling, No Redness Cardiovascular : + Chest Pain, + SOB, + Dyspnea on Exertion, + Orthopnea, No Edema, No Palpitations Respiratory : No Cough, No Sputum, No Wheezing Gastrointestinal : + Nausea, No Vomiting, No Diarrhea, No Constipation, + abdominal Pain, No Hematochezia, No Melena Genitourinary : No Dysuria, No Urinary Frequency, No Hematuria, Musculoskeletal : No joint pain, No Myalgias, No Joint Swelling Skin : No Skin Lesions, No rash Neuro : + Weakness, No Numbness, No Dizziness, No Headache All other systems reviewed and are negative Yes all other systems are reviewed and are negative [facility] Past Medical History Attestation statement: The following information was validated with the patient. Source: old records reviewed and nursing notes reviewed Medical History Afib Anxiety Aortic stenosis Asthma Closed right hip fracture Depression Fracture of hip GERD (gastroesophageal reflux disease) Myocardial infarction Normocytic anemia Osteoporosis Pacemaker Surgical History H/O: hysterectomy Status post right knee replacement Family History Family History Other No family history of coronary artery disease Social History Social History Household Members: Family Housing: House Do you presently have visiting nurse or other home services: No Alcohol intake: never Patient Tobacco Use Status: Current everyday Tobacco user Tobacco use type: Cigarette Cigarette Packs Per Day: 0.25 Cigarettes Per Day: 1 Years Smoked: 55 Smoked in Last 30 Days: Yes Second Hand Smoke Exposure: No Use of substances other than those prescribed or required for medical reasons: No Advance Directives: Yes Advance Directives on File: Yes Advance Directives Date on File: 07/19/22 service: No Current occupational status: retired Physical Exam Vital Signs: Vital Signs: Last Vital Signs Temp 98.5 F 07/20/22 01:26 Pulse 70 07/20/22 01:26 Resp 14 07/20/22 01:26 BP 124/71 07/20/22 01:26 Pulse Ox 99 07/20/22 01:26 O2 Del Method 07/20/22 01:26 BMI result Body Mass Index 26.6 vss Appearance: Alert.? Oriented X3.? No acute distress.? Head: Normocephalic, atraumatic, no step-offs or deformities Eyes: Pupils equal, round and reactive to light.? Neck: Normal inspection.? Neck supple.? CVS: Normal heart rate and rhythm.? Pulses normal.? Respiratory: No respiratory distress.? Breath sounds normal.? Abdomen: Soft and diffusely tender with normoactive bowel sounds..? Skin: Skin warm and dry.? Normal skin color.? Normal skin turgor.? Extremities: No lower extremity edema.? No calf ttp. Global weakness. Neuro: Oriented X 3.? No motor deficit.? No sensory deficit. CN 2-12 intact Course Reevaluation(s) Reevaluation #1: Patient with slight leukocytosis, however, compared to previous studies it appears as though this is around patient's baseline. Patient noted to have a slight microcytic anemia, not deviating far from her normal. Chemistry with no acute electrolyte abnormalities requiring intervention. Anion gap noted to be slightly elevated likely secondary to poor p.o. intake and dehydration. Magnesium 1.5, IV mac ordered. Transaminases and alk-phos elevated, patient with mild tenderness on abdominal exam diffusely therefore CT of the abdomen and pelvis was ordered. Elevation these levels also raises concerns for possible metastasis. Discuss this with my attending who reports no need for further investigation at this time in the emergency department. Patient is COVID negative. Troponin elevated at 17.5 repeat troponin ordered 3 hours after initial. EKG nonischemic showing ventricularly paced rhythm. Chest x-ray with no acute abnormality of the chest. CT of the abdomen and pelvis unable to identify a cause for patient's abdominal pain. Patient is status post Whipple with expected postoperative findings however no acute findings. CT of the chest with PE protocol with no signs of pulmonary embolism. VTE negative. Time: 23:00 Reevaluation #2: Patient refusing troponin at this time. Time: 00:41 Reevaluation #3: Troponin and UA pending. Time: 01:34 Additional Reevaluation(s): 0147 Intial trop 17.5 and reapeat trop 23.4 patient still w/ vague complaints of cp continues to have an overwhelmingly positive review of systems. Patient is noted to have a urinary tract infection. At this time will reach out to hospitalist for admission for possible unstable angina or anginal equivalent and UTI as well as weakness, failure to thrive and physical deconditioning. 0154 Discussed this case with hospitalist will admit patient for further evaluation and treatment. MDM - Chest Pain MDM Narrative Medical decision making narrative: [age] To 71-year-old female presents with chest pain, shortness of breath, subjective fevers and chills, weakness, fatigue, abdominal pain, nausea. Overwhelmingly positive review of systems. Patient poor historian. Has poor outpatient follow-up. Please read HPI for full details. Upon exam global weakness appreciated however no focal neuro deficits. Abdomen diffusely tender. Regular rate and rhythm. Lungs clear. Negative Chuckie bilaterally. Vital signs stable, hemodynamically stable. Patient appears comfortable and in no signs of acute distress. No evidence of trauma. NIH stroke scale 0. Plan at this time is to rule out medical causes to chest pain, shortness of breath such as PE, ACS, pneumonia, CHF. Medical Records Data Attestation: I reviewed the patient's medical records. Lab Data Attestation: I reviewed the patient's lab results. Result diagrams: 07/19/22 22:07 07/19/22 22:07 Labs: Lab Results 07/19/22 07/19/22 07/19/22 Range/Units 01:06 22:07 22:07 WBC 11.4 H (4.8-10.8) X10*3/uL RBC 4.70 (4.20-5.50) X10*6/uL Hgb 11.3 L (12.0-16.0) g/dl Hct 36.3 L (37.0-47.0) % MCV 77.2 L (80.0-98.0) fL MCH 24.0 L (27.0-33.0) pg MCHC 31.1 (31.0-35.0) g/dl RDW 16.6 H (11.0-16.0) % Plt Count 370 D (160-400) X10*3/uL MPV 9.3 L (9.4-12.3) fL Immature Gran % (Auto) 0.4 (0.0-0.4) % Neut % (Auto) 70.2 (45-73) % Lymph % (Auto) 20.4 (20-40) % [place] % (Auto) 8.3 (2-11) % Eos % (Auto) 0.3 (0-4) % Baso % (Auto) 0.4 (0-2) % Lymph # (Auto) 2.3 (1.2-4.9) X10*3/uL [place] # (Auto) 1.0 (0.1-1.2) X10*3/uL Eos # (Auto) 0.0 (0.0-0.4) X10*3/uL Baso # (Auto) 0.0 (0.0-0.2) X10*3/uL Abs Immat Gran (auto) 0.04 H (0.00-0.03) X10*3/uL Absolute Neuts (auto) 8.0 (2.0-8.3) x10*3/uL Absolute Nucleated RBC 0.000 (0.0-0.012) X10*3/uL Nucleated RBC % (auto) 0.0 (0.0-0.2) /100WBC Sodium 138 (135-145) mmol/L Potassium 4.6 (3.3-5.1) mmol/L Chloride 96 (96-108) mmol/L Carbon Dioxide 26 (22-29) mmol/L Anion Gap 21 H (12-20) BUN 17 H (9-16) mg/dL Creatinine 0.78 (0.5-1.4) mg/dL Estim Creat Clear Calc 72.1 Estimated GFR > 60 Random Glucose 114 (60-115) mg/dL Calcium 8.9 (8.4-10.2) mg/dL Magnesium 1.5 L (1.6-2.6) mg/dL Total Bilirubin 0.5 (0.0-1.0) mg/dL AST 102 H (5-31) U/L ALT 50 H (0-31) U/L Alkaline Phosphatase 379 H D (39-117) U/L Troponin I High Sens 23.4 H D (<3.5-17.0) ng/L B-Natriuretic Peptide (<100) pg/mL Total Protein 7.6 (6.5-8.0) g/dL Albumin 3.3 L (3.5-5.0) g/dL Urine Color Urine Appearance Urine pH (5.0-9.0) Ur Specific [place] (1.005-1.025) Urine Protein (Neg-Trace) mg/dL Urine Glucose (UA) (Negative) mg/dL Urine Ketones (Negative) mg/dL Urine Blood (Negative) Urine Nitrite (Negative) Ur Leukocyte Esterase (Negative) COVID-19 (ROBERT) (Negative) COVID-19 Clin Com 07/19/22 07/19/22 07/19/22 Range/Units 22:07 22:07 22:07 WBC (4.8-10.8) X10*3/uL RBC (4.20-5.50) X10*6/uL Hgb (12.0-16.0) g/dl Hct (37.0-47.0) % MCV (80.0-98.0) fL MCH (27.0-33.0) pg MCHC (31.0-35.0) g/dl RDW (11.0-16.0) % Plt Count (160-400) X10*3/uL MPV (9.4-12.3) fL Immature Gran % (Auto) (0.0-0.4) % Neut % (Auto) (45-73) % Lymph % (Auto) (20-40) % [place] % (Auto) (2-11) % Eos % (Auto) (0-4) % Baso % (Auto) (0-2) % Lymph # (Auto) (1.2-4.9) X10*3/uL [place] # (Auto) (0.1-1.2) X10*3/uL Eos # (Auto) (0.0-0.4) X10*3/uL Baso # (Auto) (0.0-0.2) X10*3/uL Abs Immat Gran (auto) (0.00-0.03) X10*3/uL Absolute Neuts (auto) (2.0-8.3) x10*3/uL Absolute Nucleated RBC (0.0-0.012) X10*3/uL Nucleated RBC % (auto) (0.0-0.2) /100WBC Sodium (135-145) mmol/L Potassium (3.3-5.1) mmol/L Chloride (96-108) mmol/L Carbon Dioxide (22-29) mmol/L Anion Gap (12-20) BUN (9-16) mg/dL Creatinine (0.5-1.4) mg/dL Estim Creat Clear Calc Estimated GFR Random Glucose (60-115) mg/dL Calcium (8.4-10.2) mg/dL Magnesium (1.6-2.6) mg/dL Total Bilirubin (0.0-1.0) mg/dL AST (5-31) U/L ALT (0-31) U/L Alkaline Phosphatase (39-117) U/L Troponin I High Sens 17.5 H (<3.5-17.0) ng/L B-Natriuretic Peptide 58 (<100) pg/mL Total Protein (6.5-8.0) g/dL Albumin (3.5-5.0) g/dL Urine Color Urine Appearance Urine pH (5.0-9.0) Ur Specific [place] (1.005-1.025) Urine Protein (Neg-Trace) mg/dL Urine Glucose (UA) (Negative) mg/dL Urine Ketones (Negative) mg/dL Urine Blood (Negative) Urine Nitrite (Negative) Ur Leukocyte Esterase (Negative) COVID-19 (ROBERT) Negative (Negative) COVID-19 Clin Com See Note 07/20/22 Range/Units 01:28 WBC (4.8-10.8) X10*3/uL RBC (4.20-5.50) X10*6/uL Hgb (12.0-16.0) g/dl Hct (37.0-47.0) % MCV (80.0-98.0) fL MCH (27.0-33.0) pg MCHC (31.0-35.0) g/dl RDW (11.0-16.0) % Plt Count (160-400) X10*3/uL MPV (9.4-12.3) fL Immature Gran % (Auto) (0.0-0.4) % Neut % (Auto) (45-73) % Lymph % (Auto) (20-40) % [place] % (Auto) (2-11) % Eos % (Auto) (0-4) % Baso % (Auto) (0-2) % Lymph # (Auto) (1.2-4.9) X10*3/uL [place] # (Auto) (0.1-1.2) X10*3/uL Eos # (Auto) (0.0-0.4) X10*3/uL Baso # (Auto) (0.0-0.2) X10*3/uL Abs Immat Gran (auto) (0.00-0.03) X10*3/uL Absolute Neuts (auto) (2.0-8.3) x10*3/uL Absolute Nucleated RBC (0.0-0.012) X10*3/uL Nucleated RBC % (auto) (0.0-0.2) /100WBC Sodium (135-145) mmol/L Potassium (3.3-5.1) mmol/L Chloride (96-108) mmol/L Carbon Dioxide (22-29) mmol/L Anion Gap (12-20) BUN (9-16) mg/dL Creatinine (0.5-1.4) mg/dL Estim Creat Clear Calc Estimated GFR Random Glucose (60-115) mg/dL Calcium (8.4-10.2) mg/dL Magnesium (1.6-2.6) mg/dL Total Bilirubin (0.0-1.0) mg/dL AST (5-31) U/L ALT (0-31) U/L Alkaline Phosphatase (39-117) U/L Troponin I High Sens (<3.5-17.0) ng/L B-Natriuretic Peptide (<100) pg/mL Total Protein (6.5-8.0) g/dL Albumin (3.5-5.0) g/dL Urine Color Yellow Urine Appearance Cloudy Urine pH 5.5 (5.0-9.0) Ur Specific [place] >= 1.030 H (1.005-1.025) Urine Protein Negative (Neg-Trace) mg/dL Urine Glucose (UA) Negative (Negative) mg/dL Urine Ketones Trace (Negative) mg/dL Urine Blood Small (1+) H (Negative) Urine Nitrite Negative (Negative) Ur Leukocyte Esterase Moderate (2+) H (Negative) COVID-19 (ROBERT) (Negative) COVID-19 Clin Com Critical Care Time Critical Care Time Critical Care Time: No Discharge Plan Discharge Clinical Impression: Weakness, Chest pain, Abdominal pain, Shortness of breath, Physical deconditioning, Fatigue, UTI (urinary tract infection) Patient Disposition: Still a Patient Prescriptions: No Action furosemide 40 mg tablet 40 mg PO DAILY clonazepam 1 mg tablet 1 mg PO BID PRN (Reason: Anxiety) paroxetine HCl 20 mg tablet 20 mg PO DAILY zolpidem 5 mg tablet 5 mg PO BEDTIME PRN (Reason: Sleep) calcium carbonate-vitamin D3 [Oystercal-D] 500 mg(1,250mg) -400 unit tablet 1 tab PO BID zinc 50 mg Tablet 50 mg PO DAILY Prolia 60 mg/mL syringe 1 ml subcut Q6M Rx Instructions: pt's daughter stated next dose is due 11/12/21 ciprofloxacin HCl [Cipro] 500 mg tablet 500 mg PO BID Qty: 14 0RF metronidazole 500 mg tablet 500 mg PO TID Qty: 21 0RF lidocaine 5 % adhesive patch,medicated 1 patch topical DAILY PRN (Reason: pain) Qty: 15 0RF Rx Instructions: leave on most painful area for up to 12 hrs hydrocodone-acetaminophen 5-325 mg tablet 1 tab PO Q6H PRN (Reason: pain) Qty: 10 0RF albuterol sulfate [Ventolin HFA] 90 mcg/actuation HFA aerosol inhaler 2 puff inhalation Q4H PRN (Reason: Wheezing) prednisone 10 mg tablet See Rx Instructions .Route .COMPLEX Qty: 45 0RF Rx Instructions: 10 mg orally; 5 tabs p.o. daily x3 days; 4 tabs p.o. daily x3 days; 3 tabs daily x3 days; 2 tabs daily x3 days; 1 tab daily x3 days multivitamin Tablet 1 tab PO DAILY metoprolol succinate 50 mg tablet extended release 24 hr 100 mg PO DAILY Rx Instructions: IN THE MORNING melatonin 5 mg capsule 5 mg PO BEDTIME PRN (Reason: Sleep) apixaban 5 mg tablet 5 mg PO BID atorvastatin 10 mg tablet 10 mg PO DAILY ferrous sulfate 325 mg (65 mg iron) tablet 325 mg PO DAILY (DME) Wheelchair See Rx Instructions .ROUTE .MEDSUPPLY Qty: 1 0RF Rx Instructions: with larger than standard size wheels
--- NOTE | 2022-07-19 20:54 | PC.NURSE ---
Pt is resting on stretcher at this time, requesting something to calm down. Daughter at beside to explain situation, CM involved.
[2022-07-19 22:14] LABS: Basophils Percent Auto 0.4 % (0-2); Eosinophils Percent Auto 0.3 % (0-4); Hematocrit 36.3 % (37.0-47.0); Hemoglobin 11.3 g/dl (12.0-16.0); Imm Gran Abs Auto 0.04 X10*3/uL (0.00-0.03); Imm Gran Pct Auto 0.4 % (0.0-0.4); Lymphocytes Absolute Auto 2.3 X10*3/uL (1.2-4.9); Lymphocytes Percent Auto 20.4 % (20-40); MANUAL DIFF FLAG NO; Mean Corpuscular HGB Conc 31.1 g/dl (31.0-35.0); Mean Corpuscular Volume 77.2 fL (80.0-98.0); Mean Platelet Volume 9.3 fL (9.4-12.3); Monocytes Percent Auto 8.3 % (2-11); Neutrophils Percent Auto 70.2 % (45-73); Platelet Count 370 X10*3/uL (160-400); Red Cell Distribution Width 16.6 % (11.0-16.0); White Blood Count 11.4 X10*3/uL (4.8-10.8)
--- NOTE | 2022-07-19 22:20 | MHC.CM.ED ---
Addendum entered by Jodee Greer 07/19/22 23:09: Daughter, Michael called. Very concerned about mother's niece visiting because she is afraid that the niece will pam her mother. States [place] [address]. States she forgot to take her mother's purse with her. Suggested that we remove any valuables. Soheila agreeable. Spoke with Pt regarding concerns if patient has money in her bag. Pt states she has a lot on money in her purse and is willing to have tech bring it to security for safety. Money counted with [employer]. $169 counted and brought to security per policy. Original Note: CM met with patient and daughter at the daughter's request for CM.Daughter's story is very long. Basically, pt was at for a Whipple procedure for pancreatic cancer 3 months ago. Pt was discharged to rehab at [facility] in [place]. Daughter states her mother's care was terrible and she took her out of there on Monday AMA. Pt was then seen at [facility], but daughter was very vague about why or how long. Daughter lives in [place], [place]. She told Yazmin MCBRIDE that she lived in [place]. Mother was with her for a few days, and then daughter brought her to [facility] for an evaluation of chest pain and not looking right. Daughter has a folder of medical information on her mother, but no discharge instructions from [facility]. Daughter brought in a box with her mother's medications from the facility, but doesn't trust that the medications are the right ones for her mother, so she hasn't given them to her. Had a recent listing of medications from [facility], which CM reviewed with Yazmin MCBRIDE and placed in chart. Also had listing of patients doctors, which CM reviewed with provider and placed in the chart. Daughter, Soheila Acosta is the HCP ([phone]). On file. [facility] on file. No intubation or dialysis. Soheila tells CM that her mother is essentially homeless, as she lost her apartment when she was in rehab. She was at the [facility] in [place]. Soheila tells CM that the insurance would not pay for both the longterm home and the rehab. At this time, CM unable to verify that patient does not have an apartment at the facility. PCP is Shoaib William Dr. and is seen at [facility] in [place]. Uses [facility]. Pt's medical work up is ongoing. Will need PT assessment. Daughter feels mother needs STR at a better facility. Per daughter, pt may need LTC. Given listing within 20 miles of facilities that contract with [facility] insurance. Given contact card. Will F/U with daughter tomorrow. CM to follow for d/c needs.
[2022-07-19 22:26] VITALS: BP 129/68; PULSE 70; RESP 16; TEMP 36.4; O2SAT 96
[2022-07-19 22:45] LABS: B Type Natriuretic Peptide 58 pg/mL (<100); Troponin-I High Sensitivity 17.5 ng/L (<3.5-17.0)
[2022-07-19 22:53] LABS: Alanine Aminotransferase 50 U/L (0-31); Albumin Level 3.3 g/dL (3.5-5.0); Alkaline Phosphatase 379 U/L (39-117); Anion Gap 21 (12-20); Aspartate Amino Transferase 102 U/L (5-31); Bilirubin Total 0.5 mg/dL (0.0-1.0); Blood Urea Nitrogen 17 mg/dL (9-16); Calcium 8.9 mg/dL (8.4-10.2); Carbon Dioxide 26 mmol/L (22-29); Chloride 96 mmol/L (96-108); Creatinine Clr Calc Pharmacy 72.1; Estimated Glomerular Filt Rate > 60; Glucose Random 114 mg/dL (60-115); Magnesium 1.5 mg/dL (1.6-2.6); Potassium 4.6 mmol/L (3.3-5.1); Sodium 138 mmol/L (135-145); Total Protein 7.6 g/dL (6.5-8.0)
[2022-07-19 22:55] LABS: COVID-19 Test Negative (Negative)
[2022-07-19] MEDS: Magnesium Sulfate/D5W 1 GM/100 ML PIGGYBACK IV (23:35)
[2022-07-19] MEDS: iohexoL 350 MG/ML 100 ML INFUS..BTL IV (23:37)
[2022-07-20] VITALS (9 sets, daily range): BP systolic 95–124; BP diastolic 52–71; PULSE 70–75; RESP 12–19; TEMP 36.1–36.9; O2SAT 95–99
[2022-07-20] MEDS: ondansetron HCL 4 MG/2 ML VIAL IVPUSH
[2022-07-20] MEDS: 0.9 % Sodium Chloride 1,000 ML 999 ML IV
[2022-07-20] MEDS: Morphine Sulfate 2 MG/ML CARTRIDGE IVPUSH
[2022-07-20 01:35] LABS: Troponin-I High Sensitivity 23.4 ng/L (<3.5-17.0)
[2022-07-20 01:37] LABS: Appearance Urine Cloudy; Color Urine Yellow; Glucose Urine UA Negative (Negative); Leukocyte Esterase Urine Moderate (2+) (Negative); Nitrite Urine Negative (Negative); PH 5.5 (5.0-9.0); Specific Gravity - Urine >= 1.030 (1.005-1.025); UMIC TRIGGER UACC YES; Urine Blood Small (1+) (Negative); Urine Ketones Trace mg/dL (Negative); Urine Protein Negative (Neg-Trace)
[2022-07-20 01:52] LABS: Bacteria Urine 4+ (None Seen); Calcium Oxalate Crystals Urine Present; RBC Urine 0-2 /HPF (0-2); Squamous Epithelial Cell Urine 0-2 /HPF (0-2); UACC Culture Trigger YES; WBC Urine >50 /HPF (0-5)
--- NOTE | 2022-07-20 01:54 | PC.NURSE ---
Called Alex at [phone] for records per Yazmin MCBRIDE.
--- NOTE | 2022-07-20 02:07 | PM.EVENT ---
Event Note Date of Service: 07/20/22 Event Note: I was asked to see this patient for possible admission. Pt is alert and oriented to self, place and situation. she states that she came to the hospital because of chest pain and everything else i guess when i asked about her chest pain she describes it as stabbingleft side pain, worst with movement and reproducible. She is also have generalized abd pain that is diffused since surgery. pt denies any urinary symptoms, including no urgency, frequency or dysuria. On review on her labs, imaging, and on examining the whole picture including the clinical picture, pt does not warrant a hospital stay. Her daughter had taken her out of rehab due to her concern that she was not getting the care she needs ( pt was taken to rehab post whipple due to pancreatic cancer). I do believe she will benefit from evaluation by case management and PT for palcement LFTs likely 2/2 due to recent whipples procedure and can be followed up with serial LFTs. this was discussed with ED PA
[2022-07-20] MEDS: cefTRIAXone sodium 1 GM in 0.9 % Sodium Chloride 50 ML IV (02:18)
--- NOTE | 2022-07-20 09:15 | PHA.MEDREC ---
Pharmacy Consult ? Medication Reconciliation Pharmacy has completed the medication reconciliation. Contacted patients daughter who brought in med box of all patients medications.
--- NOTE | 2022-07-20 11:41 | MHC.CM.ED ---
Patient remains in ER. Physical therapy eval completed. Short term rehab is recommended. Spoke with patient's daughter, Soheila, via telephone at [phone]. Soheila would like a referral sent to [facility] in [place]. T/W explained [facility] is not authorized with that facility. Soheila stated patient's insurance changed to [employer], ID# [id number], Group #[id number]. Referral made to [facility] via [facility]. Received telephone call from Liane at [facility]. Patient's insurance is a [facility] product. They are in the process of obtaining insurance auth. Patient has a history of anxiety/depression and [facility]. Patient will need a DM PASRR Level 2. T/W already submitted for Level 2 [facility] PASSR. Patient's daughter aware. Continue to monitor for d/c needs.
--- NOTE | 2022-07-20 17:13 | PC.NURSE ---
PT REFUSING LAB DRAWS
[2022-07-20] MEDS: Gabapentin 300 MG CAPSULE PO ×2 (18:34→21:05)
[2022-07-20] MEDS: Torsemide 20 MG TABLET PO (18:34)
[2022-07-20] MEDS: Metoprolol Succinate ER 50 MG TAB.ER.24H PO (18:35)
[2022-07-20] MEDS: Omeprazole 20 MG CAPSULE.DR PO (18:35)
[2022-07-20] MEDS: Thiamine HCL 100 MG TABLET PO (18:35)
[2022-07-20] MEDS: Multivitamin TABLET 1 TAB PO (18:35)
[2022-07-20] MEDS: DULoxetine HCl 30 MG CAPSULE.DR PO (21:05)
[2022-07-20] MEDS: Melatonin 3 MG TABLET 6 MG PO (21:05)
[2022-07-20] MEDS: Calcium + Vitamin D 250 MG TABLET 500 MG PO (21:05)
[2022-07-20] MEDS: Apixaban 5 MG TABLET PO (21:05)
[2022-07-21 00:31] VITALS: PULSE 70; RESP 16
[2022-07-21 01:56] VITALS: BP 92/56; PULSE 70; RESP 11; TEMP 36.6; O2SAT 93
[2022-07-21 05:59] VITALS: BP 82/49; PULSE 82; RESP 14; TEMP 36.6; O2SAT 97
[2022-07-21 08:50] VITALS: BP 102/61; PULSE 78; O2SAT 96
--- NOTE | 2022-07-21 08:58 | MHC.CM.ED ---
Patient remains in ER. Will transfer to [facility] in [facility] via BLS. Patient, daughter/HCP John Wallace RN and Jessica MCBRIDE aware. Continue to monitor for d/c needs.
--- NOTE | 2022-07-21 09:53 | PC.NURSE ---
attempted to call nurse to nurse report on pt - facility ended call
== END 2022-07-21 09:56 | disposition skilled nursing facility (03) ==
PROVIDERS: Physician Assistant; Emergency Provider Internal Medicine
DX: R07.9 Chest pain, unspecified (principal); N39.0 Urinary tract infection, site not specified; B96.1 Klebsiella pneumoniae [K. pneumoniae] as the cause of diseases classified elsewhere; R53.1 Weakness; R53.83 Other fatigue; R53.81 Other malaise; R06.02 Shortness of breath; Z20.822 Contact with and (suspected) exposure to COVID-19; I48.91 Unspecified atrial fibrillation; F17.210 Nicotine dependence, cigarettes, uncomplicated; Z95.0 Presence of cardiac pacemaker; Z79.01 Long term (current) use of anticoagulants
CPT/HCPCS: 36415; 51701; 71045; 71275; 74177; 80053; 81001; 83735; 83880; 84484; 85025; 87086; 87088; 87186; 87635; 93005; 96361; 96365; 96367; 96375; 97162; 99285; J0696; J2270; J2405; J3475; Q9967